=== PATIENT | male | born 1965 | race Caucasian/White ===

== ENCOUNTER 2016-05-23 15:40 | Emergency (ER) | payer OTHER ==
[~2016-05-23] VITALS: Ht 170.2 cm; Wt 63.6 kg
[~2016-05-23 15:40] MED LIST: LACT10SO PO; LEVA750T PO; PANT40TA3 PO; PRIL10CA PO; SPIR25TA PO; XIFA550T4 PO
[2016-05-23 15:45] VITALS: PULSE 69; RESP 18; TEMP 99.1
[2016-05-23 15:50] VITALS: BP 107/68; PULSE 105; RESP 18; O2SAT 100
--- NOTE | 2016-05-23 16:14 | PD ---
HPI Chief Complaint: Edema Time Seen by Provider: 15:54 Travel History International Travel<30 days: No Contact w/Intl Traveler<30days: No Traveled to known affect area: No History of Present Illness HPI 50-year-old male complains of increased abdominal swelling and lower extremity swelling. Patient has history of hepatic encephalopathy, hyperammonia anemia, GERD, anxiety, depression, alcohol abuse and hepatitis C. Patient states that he has increased abdominal swelling and low semi-swelling for the past few months, worse the past 3 weeks. Patient states that he had paracentesis done 3 weeks ago. Patient states that for liter fluid was removed at that time. Patient states that he ate change in physician and does not see the same physician anymore. Patient denies any headache. Patient denies any chest pain or shortness of breath. Patient states that he has abdominal discomfort. Patient denies any dysuria or frequency. Patient denies any fever chills. PFSH Past Medical History Asthma: No Blood Disorders: No Anxiety: Yes Depression: Yes Heart Rhythm Problems: No Cancer: No Cardiovascular Problems: No High Cholesterol: No Chemotherapy: No Chest Pain: No Congestive Heart Failure: No Cirrhosis: Yes COPD: No Diabetes: No Diminished Hearing: No Endocrine: No Gastrointestinal Disorders: Yes (Reflux) GERD: Yes Genitourinary: No Hypertension: Yes Implanted Vascular Access Dvce: No Musculoskeletal: No Neurologic: No Psychiatric: Yes Reproductive: No Respiratory: Yes (Pleurisy) Radiation Therapy: No Sleep Apnea: No Thyroid Disease: No Past Surgical History Other Surgery: No (pt states no) Social History Alcohol Use: Yes (but quit) Tobacco Use: Yes Substance Use: No Allergies-Medications (Allergen,Severity, Reaction): Coded Allergies: No Known Allergies (Verified , 02/15/16) Reported Meds & Prescriptions Reported Meds & Active Scripts Active Levaquin (Levofloxacin) 750 Mg Tab 750 Mg PO DAILY 7 Days Spironolactone 25 Mg Tab 25 Mg PO DAILY Xifaxan (Rifaximin) 550 Mg Tab 550 Mg PO BID 30 Days Pantoprazole (Pantoprazole Sodium) 40 Mg Tab 40 Mg PO DAILY 30 Days Lactulose Liq (Lactulose) 10 Gm/15 Ml Soln 30 Ml PO QID 30 Days Review of Systems General / Constitutional: No: Fever Eyes: No: Visual changes HENT: No: Headaches Cardiovascular: No: Chest Pain or Discomfort Respiratory: No: Shortness of Breath Gastrointestinal: No: Abdominal Pain Genitourinary: No: Dysuria Musculoskeletal: No: Pain Skin: No Rash Neurologic: No: Weakness Psychiatric: No: Depression Endocrine: No: Polydipsia Hematologic/Lymphatic: No: Easy Bruising Physical Exam Narrative GENERAL: Well-nourished, well-developed patient. SKIN: Warm and dry. HEAD: Normocephalic. EYES: No scleral icterus. No injection or drainage. NECK: Supple, trachea midline. No JVD or lymphadenopathy. CARDIOVASCULAR: Regular rate and rhythm without murmurs, gallops, or rubs. RESPIRATORY: Breath sounds equal bilaterally. No accessory muscle use. GASTROINTESTINAL: Abdomen distended. Active bowel sounds. Mild diffuse tenderness over the abdomen. MUSCULOSKELETAL: +2 pitting edema lower extremity. BACK: Nontender without obvious deformity. No CVA tenderness. Neurologic exam normal. Data Data Last Documented VS Vital Signs Date Time Temp Pulse Resp B/P Pulse Ox O2 Delivery O2 Flow Rate FiO2 05/23/16 17:21 84 24 112/68 94 Room Air 05/23/16 15:45 99.1 Orders Complete Blood Count With Diff (05/23/16 16:05) Comprehensive Metabolic Panel (05/23/16 16:05) B-Type Natriuretic Peptide (05/23/16 16:05) Prothrombin Time / Inr (Pt) (05/23/16 16:05) Act Partial Throm Time (Ptt) (05/23/16 16:05) Lipase (05/23/16 16:05) Urinalysis - C+S If Indicated (05/23/16 16:05) Ct Abd/Pel W/O Iv Contrast (05/23/16 16:05) Iv Access Insert/Monitor (05/23/16 16:05) Ecg Monitoring (05/23/16 16:05) Oximetry (05/23/16 16:05) Ammonia (05/23/16 16:10) Labs Laboratory Tests Test 05/23/16 16:22 White Blood Count 5.9 TH/MM3 Red Blood Count 3.29 MIL/MM3 Hemoglobin 8.2 GM/DL Hematocrit 25.3 % Mean Corpuscular Volume 77.0 FL Mean Corpuscular Hemoglobin 25.0 PG Mean Corpuscular Hemoglobin 32.4 % Concent Red Cell Distribution Width 19.1 % Platelet Count 149 TH/MM3 Mean Platelet Volume 9.8 FL Neutrophils (%) (Auto) 53.6 % Lymphocytes (%) (Auto) 26.5 % Monocytes (%) (Auto) 16.8 % Eosinophils (%) (Auto) 2.0 % Basophils (%) (Auto) 1.1 % Neutrophils # (Auto) 3.1 TH/MM3 Lymphocytes # (Auto) 1.5 TH/MM3 Monocytes # (Auto) 1.0 TH/MM3 Eosinophils # (Auto) 0.1 TH/MM3 Basophils # (Auto) 0.1 TH/MM3 CBC Comment DIFF FINAL Differential Comment Prothrombin Time 17.9 SEC Prothromb Time International 1.6 RATIO Ratio Activated Partial 31.3 SEC Thromboplast Time Sodium Level 139 MEQ/L Potassium Level 3.9 MEQ/L Chloride Level 104 MEQ/L Carbon Dioxide Level 25.1 MEQ/L Anion Gap 10 MEQ/L Blood Urea Nitrogen 16 MG/DL Creatinine 1.12 MG/DL Estimat Glomerular Filtration 69 ML/MIN Rate Random Glucose 92 MG/DL Calcium Level 8.5 MG/DL Total Bilirubin 1.2 MG/DL Aspartate Amino Transf 37 U/L (AST/SGOT) Alanine Aminotransferase 20 U/L (ALT/SGPT) Alkaline Phosphatase 61 U/L Ammonia 43 MCMOL/L B-Type Natriuretic Peptide 180 PG/ML Total Protein 7.0 GM/DL Albumin 2.6 GM/DL Lipase 145 U/L MDM Medical Decision Making Medical Screen Exam Complete: Yes Emergency Medical Condition: Yes Medical Record Reviewed: Yes Interpretation(s) [address] scan abdomen pelvis social advanced cirrhosis. Large ascites. Varicosities. CBC WBC 5.9. Hemoglobin 8.2 hematocrit 25.3. MCV 77. Platelet 149. Ammonia 43. BNP 180. INR 1.6. Differential Diagnosis Differential diagnosis including abdominal ascites, electrolyte imbalance, dehydration, dependent edema, DVT, CHF. Narrative Course 50-year-old male with increased abdominal swelling and lower extremity edema. History of hepatic encephalopathy, alcohol abuse and hepatitis C. History of recurrent ascites. Diagnosis Primary Impression: Ascites of liver Additional Impression: Dependent edema Patient Instructions: General Instructions Additional Instructions: Keep legs elevated. Follow-up with outpatient radiology department for paracentesis in 2 days. Return if increased abdominal pain, shortness of breath , fever, persistent vomiting. Continue with spironolactone and lactulose as directed. Med/Other Pt SpecificInfo: Prescription(s) given Disposition: 01 DISCHARGE HOME Condition: Stable Angelo Smith MD May 23, 2016 16:14
[2016-05-23 16:40] VITALS: O2SAT 94
[2016-05-23 16:42] LABS: AUTOMATED NEUTROPHIL # 3.1 TH/MM3 (1.8-7.7); BASOPHIL # 0.1 TH/MM3 (0-0.2); BASOPHIL % 1.1 % (0.0-2.0); EOSINOPHIL # 0.1 TH/MM3 (0-0.4); HEMATOCRIT 25.3 % (39.0-51.0); HEMO FLAGS DIFF FINAL; LYMPH % 26.5 % (9.0-44.0); LYMPHOCYTE # 1.5 TH/MM3 (1.0-4.8); MEAN CORPUSCULAR HGB CONC 32.4 % (32.0-36.0); MONO % 16.8 % (0.0-8.0); NEUT % 53.6 % (16.0-70.0); PLATELET COUNT 149 TH/MM3 (150-450); RED BLOOD COUNT 3.29 MIL/MM3 (4.50-5.90); RED CELL DISTRIBUTION WIDTH 19.1 % (11.6-17.2); WHITE BLOOD COUNT 5.9 TH/MM3 (4.0-11.0)
[2016-05-23 16:45] LABS: APTT (PATIENT) 31.3 SEC (24.3-30.1); INTERNATIONAL NORMALIZED RATIO 1.6 RATIO; PROTHROMBIN TIME - PATIENT 17.9 SEC (9.8-11.6)
--- NOTE | 2016-05-23 16:55 | RADRPT ---
EXAM DATE/TIME: 05/23/2016 16:37 [facility] COMPARISON: CT ABDOMEN & PELVIS W/O CONTRAST, February 15, 2016, 19:26. INDICATIONS : Ascites; abdomen distention. ORAL CONTRAST: No oral contrast ingested. RADIATION DOSE: 13.45 CTDIvol (mGy) MEDICAL HISTORY : Cirrhosis. Reflux. SURGICAL HISTORY : None. ENCOUNTER: Initial ACUITY: 1 day PAIN SCALE: 7/10 LOCATION: Bilateral abdomen. TECHNIQUE: Volumetric scanning of the abdomen and pelvis was performed. Using automated exposure control and ad justment of the mA and/or kV according to patient size, radiation dose was kept as low as reasonably achievable to obtain optimal diagnostic quality images. FINDINGS: Minimal bibasilar parenchymal changes are noted. The heart is enlarged without pericardial effusion. There is dense ascites with small shrunken liver. The spleen is of normal size The pancreas adrenals and kidneys are unremarkable. Pelvic contents were normal with exception of significant ascites. CONCLUSION: Small shrunken liver consistent with advanced cirrhosis Spleen is of normal size Tense ascites is evident Varicosities are suspected however I cannot visualize these on the noncontrast exam. Large volume paracentesis, 10 L was performed on 05/07/2016. Tyson Farias MD FACR on May 23, 2016 at 16:52 Board Certified Radiologist. This report was verified electronically.
[2016-05-23 16:56] LABS: ALT (GPT) 20 U/L (12-78); ANION GAP 10 MEQ/L (5-15); AST (GOT) 37 U/L (15-37); BICARBONATE 25.1 MEQ/L (21.0-32.0); BLOOD UREA NITROGEN 16 MG/DL (7-18); CHLORIDE 104 MEQ/L (98-107); GLOMERULAR FILTRATION RATE 69 ML/MIN (>89); POTASSIUM 3.9 MEQ/L (3.5-5.1); SODIUM (NA) 139 MEQ/L (136-145)
[2016-05-23 16:58] LABS: ALKALINE PHOSPHATASE 61 U/L (45-117); TOTAL BILIRUBIN ADULT 1.2 MG/DL (0.2-1.0)
[2016-05-23 17:21] VITALS: BP 112/68; PULSE 84; RESP 24; O2SAT 94
== END 2016-05-23 18:46 | disposition home or self-care (01) ==
LOC: NEPA 15:40
DX: R18.8 Other ascites (principal); K74.60 Unspecified cirrhosis of liver; B19.20 Unspecified viral hepatitis C without hepatic coma; I10 Essential (primary) hypertension; Z72.0 Tobacco use
CPT/HCPCS: 74176; 80053; 82140; 83690; 83880; 85025; 85610; 85730

== ENCOUNTER 2016-05-26 09:35 | Emergency (ER) | payer OTHER ==
[~2016-05-26] VITALS: Ht 170.2 cm; Wt 78.0 kg
[~2016-05-26 09:35] MED LIST changes: -PRIL10CA PO
[2016-05-26 09:46] VITALS: BP 102/61; PULSE 84; RESP 18; TEMP 98.2; O2SAT 94
[2016-05-26 09:50] VITALS: BP 102/61; PULSE 84; RESP 16; O2SAT 99
--- NOTE | 2016-05-26 09:50 | PD ---
HPI Chief Complaint: Pain: Acute or Chronic Time Seen by Provider: 09:49 Travel History International Travel<30 days: No Contact w/Intl Traveler<30days: No Traveled to known affect area: No History of Present Illness HPI 50-year-old male came to the emergency room with history of bilateral lower extremity pain. Patient has history of cirrhosis, end-stage liver disease, hepatitis secondary to years of alcoholism and drug abuse. He had a paracentesis done 5 weeks ago. Right now he says he is not here for his abdomen or breathing but it's mainly for his legs. Patient looks disheveled and in some distress. Vital signs however are within normal limits. He says he lives alone but he has his mother who will take care of him. He is having trouble getting out of the bed or chair and some trouble walking. No history of fever or chills. He does not have a primary care doctor or a GI specialist. PFSH Past Medical History Narrative Medical List of his past medical history as reviewed from the nursing note. Asthma: No Blood Disorders: No Anxiety: Yes Depression: Yes Heart Rhythm Problems: No Cancer: No Cardiovascular Problems: No High Cholesterol: No Chemotherapy: No Chest Pain: No Congestive Heart Failure: No Cirrhosis: Yes COPD: No Diabetes: No Diminished Hearing: No Endocrine: No Gastrointestinal Disorders: Yes (Reflux) GERD: Yes Genitourinary: No Hypertension: Yes Implanted Vascular Access Dvce: No Musculoskeletal: No Neurologic: No Psychiatric: Yes Reproductive: No Respiratory: Yes (Pleurisy) Radiation Therapy: No Sleep Apnea: No Thyroid Disease: No Past Surgical History Other Surgery: No (pt states no) Social History Alcohol Use: Yes (but quit) Tobacco Use: Yes Substance Use: No Allergies-Medications (Allergen,Severity, Reaction): Coded Allergies: Morphine (Verified Allergy, Unknown, 05/26/16) Comments List of his allergies reviewed from the nursing note. Reported Meds & Prescriptions Reported Meds & Active Scripts Active Reported Prilosec (Omeprazole Magnesium) 10 Mg Pow 10 Mg PO HS Narrative Medication List of his home medications reviewed from the nursing note. Review of Systems Except as stated in HPI: all other systems reviewed are Neg Physical Exam Narrative GENERAL: Awake, alert, moderate distress SKIN: Warm and dry. Pale, spider hemangioma, caput medusae HEAD: Atraumatic. Normocephalic. Pallor EYES: Pupils equal and round. No scleral icterus. No injection or drainage. ENT: No nasal bleeding or discharge. Mucous membranes pink and moist. NECK: Trachea midline. No JVD. CARDIOVASCULAR: Regular rate and rhythm. No murmur appreciated. RESPIRATORY: No accessory muscle use. Clear to auscultation. Breath sounds equal bilaterally. GASTROINTESTINAL: Abdomen soft, non-tender, abdomen is distended from ascites. Hepatic and splenic margins not palpable. MUSCULOSKELETAL: No obvious deformities. No clubbing. No cyanosis. No edema. NEUROLOGICAL: Awake and alert. No obvious cranial nerve deficits. Motor grossly within normal limits. Normal speech. PSYCHIATRIC: Appropriate mood and affect; insight and judgment normal. Data Data Last Documented VS Vital Signs Date Time Temp Pulse Resp B/P Pulse Ox O2 Delivery O2 Flow Rate FiO2 05/26/16 10:45 82 16 101/73 100 Nasal Cannula 2 05/26/16 09:46 98.2 Orders Complete Blood Count With Diff (05/26/16 09:55) Comprehensive Metabolic Panel (05/26/16 09:55) Prothrombin Time / Inr (Pt) (05/26/16 09:55) Act Partial Throm Time (Ptt) (05/26/16 09:55) Iv Access Insert/Monitor (05/26/16 09:55) Ecg Monitoring (05/26/16 09:55) Oximetry (05/26/16 09:55) Sodium Chloride 0.9% Flush (Ns Flush) (05/26/16 10:00) Chest, Single Ap (05/26/16 09:55) Hydromorphone Pf Inj (Dilaudid Pf Inj) (05/26/16 10:00) ^ Other Nursing Orders (05/26/16 11:20) Mandatory Outpatient Referral (05/26/16 11:20) Labs Laboratory Tests Test 05/26/16 10:10 White Blood Count 3.5 TH/MM3 Red Blood Count 3.34 MIL/MM3 Hemoglobin 8.5 GM/DL Hematocrit 25.8 % Mean Corpuscular Volume 77.4 FL Mean Corpuscular Hemoglobin 25.3 PG Mean Corpuscular Hemoglobin 32.7 % Concent Red Cell Distribution Width 19.4 % Platelet Count 129 TH/MM3 Mean Platelet Volume 10.0 FL Neutrophils (%) (Auto) 49.7 % Lymphocytes (%) (Auto) 32.8 % Monocytes (%) (Auto) 14.7 % Eosinophils (%) (Auto) 1.8 % Basophils (%) (Auto) 1.0 % Neutrophils # (Auto) 1.7 TH/MM3 Lymphocytes # (Auto) 1.1 TH/MM3 Monocytes # (Auto) 0.5 TH/MM3 Eosinophils # (Auto) 0.1 TH/MM3 Basophils # (Auto) 0.0 TH/MM3 CBC Comment DIFF FINAL Differential Comment Prothrombin Time 17.2 SEC Prothromb Time International 1.5 RATIO Ratio Activated Partial 31.5 SEC Thromboplast Time Sodium Level 136 MEQ/L Potassium Level 4.7 MEQ/L Chloride Level 105 MEQ/L Carbon Dioxide Level 22.9 MEQ/L Anion Gap 8 MEQ/L Blood Urea Nitrogen 14 MG/DL Creatinine 1.03 MG/DL Estimat Glomerular Filtration 76 ML/MIN Rate Random Glucose 86 MG/DL Calcium Level 8.4 MG/DL Total Bilirubin 2.0 MG/DL Aspartate Amino Transf 65 U/L (AST/SGOT) Alanine Aminotransferase 21 U/L (ALT/SGPT) Alkaline Phosphatase 59 U/L Total Protein 7.1 GM/DL Albumin 2.6 GM/DL MDM Medical Decision Making Medical Screen Exam Complete: Yes Emergency Medical Condition: Yes Medical Record Reviewed: Yes Differential Diagnosis Cirrhosis, anasarca, venous congestion Narrative Course 11:18 AM blood test results of back and they are as good as they can be given his portal hypertension and cirrhosis. The patient does not qualify for any home health due to his lack of insurance or source of income as per ED case management. I don't see any reason to admit him to the hospital today. I will give him a walker to go home with for help with ambulation. Patient said that his mother will help him. I will give him the name of the number of the GI specialist call and see if he can get him up appointment. I'll also give a mandatory follow-up. Procedures EKG Prior to Arrival: No Diagnosis Primary Impression: Cirrhosis Qualified Code: K70.31 - Alcoholic cirrhosis of liver with ascites Additional Impressions: Ascites Qualified Code: K70.31 - Ascites due to alcoholic cirrhosis Anasarca Referrals: Hanane Nelson MD 2 days Additional Instructions: Please call the GI specialist was name and number been given to you. Return to the ER if the condition worsens or any other new concerns. Med/Other Pt SpecificInfo: No Change to Meds Disposition: 01 DISCHARGE HOME Condition: Patsy Terry MD May 26, 2016 09:50 Disposition: 01 DISCHARGE HOME Condition: Patsy Terry MD May 26, 2016 09:50
[2016-05-26] MEDS ORDERED: PRIL10PO PO (09:57)
[2016-05-26] MEDS ORDERED: HYDROmorphone HCL PF 1 MG/ML VIAL IVS ONE (10:00)
[2016-05-26] MEDS ORDERED: SODIUM CHLORIDE 0.9% FLUSH 5 ML FLUSH IVF PRN (10:00)
[2016-05-26 10:21] LABS: AUTOMATED NEUTROPHIL # 1.7 TH/MM3 (1.8-7.7); EOSINOPHIL # 0.1 TH/MM3 (0-0.4); EOSINOPHIL % 1.8 % (0.0-4.0); HEMATOCRIT 25.8 % (39.0-51.0); HEMO FLAGS DIFF FINAL; LYMPH % 32.8 % (9.0-44.0); LYMPHOCYTE # 1.1 TH/MM3 (1.0-4.8); MEAN CELL VOLUME 77.4 FL (80.0-100.0); MEAN CORPUSCULAR HEMOGLOBIN 25.3 PG (27.0-34.0); MEAN CORPUSCULAR HGB CONC 32.7 % (32.0-36.0); MONO % 14.7 % (0.0-8.0); NEUT % 49.7 % (16.0-70.0); PLATELET COUNT 129 TH/MM3 (150-450); RED BLOOD COUNT 3.34 MIL/MM3 (4.50-5.90); RED CELL DISTRIBUTION WIDTH 19.4 % (11.6-17.2); WHITE BLOOD COUNT 3.5 TH/MM3 (4.0-11.0)
--- NOTE | 2016-05-26 10:21 | RADRPT ---
EXAM DATE/TIME: 05/26/2016 09:51 [facility] COMPARISON: CHEST SINGLE AP, May 07, 2016, 1:32. INDICATIONS : Chest pain, swollen, painful lower extremites. Evaluate free air MEDICAL HISTORY : Gastroesophageal reflux disease. Hepatitis C. pleurisy, depression SURGICAL HISTORY : None. ENCOUNTER: Initial ACUITY: 4 - 6 days PAIN SCORE: 6/10 LOCATION: Bilateral chest FINDINGS: A single view of the chest demonstrates the lungs to be hypoinflated with minimal bibasilar atelectat ic changes. There is marked improvement in the appearance of the left lung where there was a hazy inf iltrate identified in the left base. This has basically resolved. There are no effusions. Accounting for low lung volumes, heart size is normal. Slight but stable elevation of the right hemidiaphragm. O sseous structures are intact.. CONCLUSION: 1. While there is some minimal bibasilar atelectatic changes, left greater than right, there is marke d interval improvement in the appearance of the left base there was previously a hazy, confluent infi ltrate. This has essentially resolved. 2. Hypoinflation with minimal but stable elevation of the right hemidiaphragm. 3. Heart size is normal. Raul Vásquez MD on May 26, 2016 at 10:15 Board Certified Radiologist. This report was verified electronically.
[2016-05-26 10:31] LABS: APTT (PATIENT) 31.5 SEC (24.3-30.1); INTERNATIONAL NORMALIZED RATIO 1.5 RATIO; PROTHROMBIN TIME - PATIENT 17.2 SEC (9.8-11.6)
[2016-05-26 10:45] VITALS: BP 101/73; PULSE 82; RESP 16; O2SAT 100
[2016-05-26 10:50] LABS: ALKALINE PHOSPHATASE 59 U/L (45-117); ALT (GPT) 21 U/L (12-78); ANION GAP 8 MEQ/L (5-15); BICARBONATE 22.9 MEQ/L (21.0-32.0); BLOOD UREA NITROGEN 14 MG/DL (7-18); CHLORIDE 105 MEQ/L (98-107); GLOMERULAR FILTRATION RATE 76 ML/MIN (>89); SODIUM (NA) 136 MEQ/L (136-145)
[2016-05-26 10:51] LABS: AST (GOT) 65 U/L (15-37); POTASSIUM 4.7 MEQ/L (3.5-5.1)
== END 2016-05-26 11:52 | disposition home or self-care (01) ==
LOC: NEPA 09:35
DX: K70.31 Alcoholic cirrhosis of liver with ascites (principal); R60.1 Generalized edema; R07.9 Chest pain, unspecified; B19.20 Unspecified viral hepatitis C without hepatic coma; M79.662 Pain in left lower leg; K21.9 Gastro-esophageal reflux disease without esophagitis
CPT/HCPCS: 71010; 80053; 85025; 85610; 85730; 96374; 99284; J1170

== ENCOUNTER 2016-06-02 16:42 | Inpatient (IN) | payer OTHER ==
[~2016-06-02] VITALS: Ht 167.6 cm; Wt 72.3 kg
[~2016-06-02 16:42] MED LIST changes: -LACT10SO PO; -LEVA750T PO; -PANT40TA3 PO; +PRIL10PO PO; -SPIR25TA PO; -XIFA550T4 PO
[2016-06-02] MEDS ORDERED: SODIUM CHLORIDE 0.9% FLUSH 5 ML FLUSH IVF PRN (17:30)
[2016-06-02 17:43] VITALS: BP 125/64; PULSE 95; RESP 16; TEMP 98.9; O2SAT 100
[2016-06-02 18:02] LABS: AUTOMATED NEUTROPHIL # 3.2 TH/MM3 (1.8-7.7); BASOPHIL % 0.6 % (0.0-2.0); EOSINOPHIL % 0.3 % (0.0-4.0); HEMATOCRIT 25.2 % (39.0-51.0); LYMPH % 20.1 % (9.0-44.0); MEAN CELL VOLUME 78.3 FL (80.0-100.0); MEAN CORPUSCULAR HEMOGLOBIN 24.6 PG (27.0-34.0); MEAN CORPUSCULAR HGB CONC 31.5 % (32.0-36.0); MONO % 15.1 % (0.0-8.0); NEUT % 63.9 % (16.0-70.0); PLATELET COUNT 122 TH/MM3 (150-450); RED BLOOD COUNT 3.21 MIL/MM3 (4.50-5.90); RED CELL DISTRIBUTION WIDTH 20.7 % (11.6-17.2); WHITE BLOOD COUNT 4.9 TH/MM3 (4.0-11.0)
[2016-06-02 18:04] LABS: HEMO FLAGS AUTO DIFF
[2016-06-02 18:13] LABS: APTT (PATIENT) 29.1 SEC (24.3-30.1); INTERNATIONAL NORMALIZED RATIO 1.6 RATIO; PROTHROMBIN TIME - PATIENT 18.3 SEC (9.8-11.6)
[2016-06-02 18:23] LABS: ALT (GPT) 20 U/L (12-78); ANION GAP 12 MEQ/L (5-15); AST (GOT) 36 U/L (15-37); BICARBONATE 21.9 MEQ/L (21.0-32.0); BLOOD UREA NITROGEN 21 MG/DL (7-18); CHLORIDE 106 MEQ/L (98-107); GLOMERULAR FILTRATION RATE 69 ML/MIN (>89); POTASSIUM 3.5 MEQ/L (3.5-5.1); SODIUM (NA) 140 MEQ/L (136-145)
[2016-06-02 18:24] LABS: OVALOCYTES 1+ (NORMAL); TARGET CELLS 1+ (NORMAL)
[2016-06-02 18:25] LABS: ALKALINE PHOSPHATASE 61 U/L (45-117); CREATINE KINASE 109 U/L (39-308); PLATELET ESTIMATE SMEAR LOW (NORMAL); PLATELET MORPHOLOGY NORMAL (NORMAL); SCAN/DIFF AUTO DIFF CONFIRMED; TOTAL BILIRUBIN ADULT 2.4 MG/DL (0.2-1.0)
--- NOTE | 2016-06-02 18:47 | PD ---
HPI Chief Complaint: Fall Time Seen by Provider: 18:00 Travel History International Travel<30 days: No Contact w/Intl Traveler<30days: No Traveled to known affect area: No History of Present Illness HPI Patient is a 50-year-old male brought in by EMS for evaluation of altered mental status, fall. Per EMS report patient is acting normally, they state the family was not concerned about the way he was acting. Patient had a fall outside of his home and the neighbor's yard. Patient is complaining of neck pain and has a contusion to the back of his head. He denies any other complaints at this time. PFSH Past Medical History Asthma: No Blood Disorders: No Anxiety: Yes Depression: Yes Heart Rhythm Problems: No Cancer: No Cardiovascular Problems: No High Cholesterol: No Chemotherapy: No Chest Pain: No Congestive Heart Failure: No Cirrhosis: Yes COPD: No Diabetes: No Diminished Hearing: No Endocrine: No Gastrointestinal Disorders: Yes (Reflux) GERD: Yes Genitourinary: No Hepatitis: Yes (HEP C ) Hypertension: Yes Implanted Vascular Access Dvce: No Musculoskeletal: No Neurologic: No Psychiatric: Yes Reproductive: No Respiratory: Yes (Pleurisy) Radiation Therapy: No Sleep Apnea: No Thyroid Disease: No Past Surgical History Other Surgery: No (pt states no) Social History Alcohol Use: Yes (but quit) Tobacco Use: Yes (1 PPD) Substance Use: No Allergies-Medications (Allergen,Severity, Reaction): Coded Allergies: Morphine (Verified Allergy, Unknown, 06/02/16) Reported Meds & Prescriptions Reported Meds & Active Scripts Active Reported Prilosec (Omeprazole Magnesium) 10 Mg Pow 10 Mg PO HS Review of Systems ROS Limitations: Altered Mental Status, Poor Historian Except as stated in HPI: all other systems reviewed are Neg HENT: Positive: Neck Pain Physical Exam Narrative GENERAL: Chronically ill, drowsy male. Resting comfortably in no acute distress. Cachectic SKIN: Warm and dry. 7 centimeter contusion to the right posterior/lateral scalp HEAD: Atraumatic. Normocephalic. EYES: Pupils equal and round. No scleral icterus. No injection or drainage. ENT: No nasal bleeding or discharge. Mucous membranes pink and moist. NECK: Trachea midline. No JVD. CARDIOVASCULAR: Regular rate and rhythm. No murmur appreciated. RESPIRATORY: No accessory muscle use. In addition basis GASTROINTESTINAL: Abdomen distended, firm, non-tender. Hepatic and splenic margins not palpable. The bowel sounds MUSCULOSKELETAL: No obvious deformities. No clubbing. No cyanosis. No edema. NEUROLOGICAL: Drowsy. No obvious cranial nerve deficits. Motor grossly within normal limits. Slurred speech Data Data Last Documented VS Vital Signs Date Time Temp Pulse Resp B/P Pulse Ox O2 Delivery O2 Flow Rate FiO2 06/02/16 19:43 98 16 96 Nasal Cannula 2 06/02/16 19:35 104/67 06/02/16 17:43 98.9 Orders Electrocardiogram (06/02/16 17:26) Alcohol (Ethanol) (06/02/16 17:26) Ammonia (06/02/16 17:26) Complete Blood Count With Diff (06/02/16 17:26) Comprehensive Metabolic Panel (06/02/16 17:26) Creatine Kinase (Cpk) (06/02/16 17:26) Prothrombin Time / Inr (Pt) (06/02/16 17:26) Act Partial Throm Time (Ptt) (06/02/16 17:26) Lactic Acid Sepsis Protocol (06/02/16 17:26) Ct Brain W/O Iv Contrast(Rout) (06/02/16 17:26) Blood Glucose (06/02/16 17:26) Ecg Monitoring (06/02/16 17:26) Iv Access Insert/Monitor (06/02/16 17:26) Cath For Specimen (06/02/16 17:26) Oximetry (06/02/16 17:26) Sodium Chloride 0.9% Flush (Ns Flush) (06/02/16 17:30) Ct Cerv Spine W/O Contrast (06/02/16 ) Type And Screen (06/02/16 19:38) Sodium Chlor 0.9% 1000 Ml Inj (Ns 1000 M (06/02/16 19:45) Head Of Bed (06/02/16 19:41) Neuro Checks . ORDERED (06/02/16 19:48) Urinary Catheter Insert/Apply (06/02/16 20:08) Admit To Inpatient (06/02/16 ) Vital Signs (Adult) Q4H (06/02/16 20:11) Neuro Checks Q4H (06/02/16 20:11) Activity Oob With Assistance (06/02/16 20:11) International Sales Manager / Telemetry .CONTINUOUS (06/02/16 20:11) Diet Npo (06/03/16 Breakfast) Sodium Chloride 0.9% Flush (Ns Flush) (06/02/16 20:15) Sodium Chloride 0.9% Flush (Ns Flush) (06/02/16 21:00) Basic Metabolic Panel (Bmp) (06/03/16 06:00) Complete Blood Count With Diff (06/03/16 06:00) Prothrombin Time / Inr (Pt) (06/03/16 06:00) Pt Request For Service (06/02/16 20:11) Case Management Consult (06/02/16 20:11) Scd Bilateral/Knee High DONTA.BID (06/02/16 20:11) Naloxone Inj (Narcan Inj) (06/02/16 20:15) Inpatient Certification (06/02/16 ) Admit Order (Ed Use Only) (06/02/16 20:11) Phytonadione Inj (Vitamin K Inj) (06/02/16 20:15) Phytonadione (Mephyton) (06/03/16 09:00) Hgb & Hct (06/02/16 20:14) Hgb & Hct (06/03/16 00:14) Hgb & Hct (06/03/16 04:14) Hgb & Hct (06/03/16 08:14) Labs Laboratory Tests Test 06/02/16 17:30 White Blood Count 4.9 TH/MM3 Red Blood Count 3.21 MIL/MM3 Hemoglobin 7.9 GM/DL Hematocrit 25.2 % Mean Corpuscular Volume 78.3 FL Mean Corpuscular Hemoglobin 24.6 PG Mean Corpuscular Hemoglobin 31.5 % Concent Red Cell Distribution Width 20.7 % Platelet Count 122 TH/MM3 Mean Platelet Volume 10.0 FL Neutrophils (%) (Auto) 63.9 % Lymphocytes (%) (Auto) 20.1 % Monocytes (%) (Auto) 15.1 % Eosinophils (%) (Auto) 0.3 % Basophils (%) (Auto) 0.6 % Neutrophils # (Auto) 3.2 TH/MM3 Lymphocytes # (Auto) 1.0 TH/MM3 Monocytes # (Auto) 0.7 TH/MM3 Eosinophils # (Auto) 0.0 TH/MM3 Basophils # (Auto) 0.0 TH/MM3 CBC Comment AUTO DIFF Differential Comment AUTO DIFF CONFIRMED Platelet Estimate LOW Platelet Morphology Comment NORMAL Target Cells 1+ Ovalocytes 1+ Prothrombin Time 18.3 SEC Prothromb Time International 1.6 RATIO Ratio Activated Partial 29.1 SEC Thromboplast Time Sodium Level 140 MEQ/L Potassium Level 3.5 MEQ/L Chloride Level 106 MEQ/L Carbon Dioxide Level 21.9 MEQ/L Anion Gap 12 MEQ/L Blood Urea Nitrogen 21 MG/DL Creatinine 1.13 MG/DL Estimat Glomerular Filtration 69 ML/MIN Rate Random Glucose 100 MG/DL Calcium Level 9.1 MG/DL Total Bilirubin 2.4 MG/DL Aspartate Amino Transf 36 U/L (AST/SGOT) Alanine Aminotransferase 20 U/L (ALT/SGPT) Alkaline Phosphatase 61 U/L Total Creatine Kinase 109 U/L Total Protein 7.8 GM/DL Albumin 2.9 GM/DL Ethyl Alcohol Level LESS THAN 3 MG/DL MDM Medical Decision Making Medical Screen Exam Complete: Yes Emergency Medical Condition: Yes Interpretation(s) Last Impressions Head CT 06/02/16 1726 Signed Impressions: Service Date/Time: Thursday, June 02, 2016 19:04 - CONCLUSION: 1. Questionable small intraparenchymal hematoma involving the right middle cerebellar peduncle. 2. Large right parietal soft tissue hematoma. Haider Reinoso Jr., MD Cervical Spine CT 06/02/16 0000 Signed Impressions: Service Date/Time: Thursday, June 02, 2016 19:04 - CONCLUSION: 1. No fracture or dislocation. 2. Degenerative changes. 3. Calcified atherosclerotic plaque involving the carotid arteries bilaterally. Haider Reinoso Jr., MD Vital Signs Date Time Temp Pulse Resp B/P Pulse Ox O2 Delivery O2 Flow Rate FiO2 06/02/16 17:43 98.9 95 16 125/64 100 Differential Diagnosis Contusion versus hemorrhage versus electrolyte abnormality versus intoxication versus other Narrative Course Patient is a 50-year-old male who presented to the emergency room for evaluation after a mechanical fall earlier this afternoon. Patient was found at a neighbor's home. Patient hasn't slurring his speech, EMS states this is his baseline. Patient has a history of cirrhosis, his last paracentesis was performed. Labs and imaging ordered and pending. CBC shows an H/H of 7.9/25.2, previous value was 8.5. Chemistry with a bilirubin of 2.4, BUN 21 Coag with elevated INR 1.6 Alcohol level is less than 3 CT of the head shows questionable small intraparenchymal hematoma involving the right middle cerebellar peduncle, and a right parietal soft tissue hematoma which is consistent with physical findings. CT scan of the cervical spine shows no fracture or dislocation, degenerative changes, calcified atherosclerotic plaque involving the carotid arteries bilaterally. Patient continues to follow commands. Discussed with Dr. Nayak neurosurgeon, who recommended admission and stated patient will be appropriate for the medical floor. Discussed with Dr. Juan who accepted admission, and requested patient be placed in [facility]. Neuro checks ordered, had a bed at 30 ordered. Type and screen ordered and pending. Physician Communication Physician Communication Dr. Rochelle Juan Diagnosis Primary Impression: Intracranial hemorrhage Additional Impressions: Anemia Qualified Code: D64.9 - Anemia, unspecified type Coagulopathy Cirrhosis Qualified Code: K74.60 - Cirrhosis of liver with ascites, unspecified hepatic cirrhosis type Ascites Qualified Code: R18.8 - Other ascites Altered mental status Qualified Code: R41.82 - Altered mental status, unspecified altered mental status type Admitting Information Admitting Physician Requests: Admit Condition: Stable Sabi Pelaez Marina KIMBROUGH Jun 02, 2016 18:47
--- NOTE | 2016-06-02 19:28 | RADRPT ---
EXAM DATE/TIME: 06/02/2016 19:04 [facility] COMPARISON: No previous studies available for comparison. INDICATIONS : Fall and hit back of head and neck RADIATION DOSE: 41.29 CTDIvol (mGy) MEDICAL HISTORY : Hypertension. SURGICAL HISTORY : None. ENCOUNTER: Initial ACUITY: 1 day PAIN SCALE: 3/10 LOCATION: neck posterior TECHNIQUE: Volumetric scanning of the cervical spine was performed. Multiplanar reconstructions in the sagittal, coronal and oblique axial planes were performed. Using automated exposure control and adjustment o f the mA and/or kV according to patient size, radiation dose was kept as low as reasonably achievable to obtain optimal diagnostic quality images. FINDINGS: VERTEBRAE: Normal vertebral body height. ALIGNMENT: No evidence of subluxation. Calcified plaque involving the carotid arteries bilaterally. C2-C3: The bony spinal canal is normal in size. No evidence of disc bulge or herniation. The neural forami na are bilaterally patent. C3-C4: A mild central bulge. No abutment of the cord or central canal stenosis. Bony uncovertebral hypertrop hy without significant neural foraminal narrowing. C4-C5: A mild broad-based disc bulge without central canal stenosis or abutment of the cord. Bony uncoverteb ral hypertrophy without neural foraminal narrowing. C5-C6: The bony spinal canal is normal in size. No evidence of disc bulge or herniation. The neural forami na are bilaterally patent. C6-C7: The bony spinal canal is normal in size. No evidence of disc bulge or herniation. The neural forami na are bilaterally patent. C7-T1: The bony spinal canal is normal in size. No evidence of disc bulge or herniation. The neural forami na are bilaterally patent. CONCLUSION: 1. No fracture or dislocation. 2. Degenerative changes. 3. Calcified atherosclerotic plaque involving the carotid arteries bilaterally. Haider Reinoso Jr., MD on June 02, 2016 at 19:23 Board Certified Radiologist. This report was verified electronically.
--- NOTE | 2016-06-02 19:30 | RADRPT ---
EXAM DATE/TIME: 06/02/2016 19:04 [facility] COMPARISON: CT BRAIN W/O CONTRAST, May 04, 2016, 17:58. INDICATIONS : Fall and hit back of head and neck. RADIATION DOSE: 49.75 CTDIvol (mGy) MEDICAL HISTORY : Hypertension. SURGICAL HISTORY : None. ENCOUNTER: Initial ACUITY: 1 day PAIN SCALE: 5/10 LOCATION: cranial posterior TECHNIQUE: Multiple contiguous axial images were obtained of the head. Using automated exposure control and adj ustment of the mA and/or kV according to patient size, radiation dose was kept as low as reasonably a chievable to obtain optimal diagnostic quality images. FINDINGS: Enlarged right parietal soft tissue hematoma. The calvarium is intact. A small curvilinear high atten uation focus is seen involving the right middle cerebellar peduncle. This is a new finding from the p rior study. The remaining brain parenchyma is unremarkable. Mild atrophy observed. CONCLUSION: 1. Questionable small intraparenchymal hematoma involving the right middle cerebellar peduncle. 2. Large right parietal soft tissue hematoma. Haider Reinoso Jr., MD on June 02, 2016 at 19:26 Board Certified Radiologist. This report was verified electronically.
[2016-06-02 19:35] VITALS: BP 104/67; PULSE 87; RESP 14; O2SAT 96
--- NOTE | 2016-06-02 19:47 | PD ---
Physical Exam Narrative Patient was seen and examined with my commercial assistant. Data Data Last Documented VS Vital Signs Date Time Temp Pulse Resp B/P Pulse Ox O2 Delivery O2 Flow Rate FiO2 06/02/16 19:43 98 16 96 Nasal Cannula 2 06/02/16 19:35 104/67 06/02/16 17:43 98.9 Orders Electrocardiogram (06/02/16 17:26) Alcohol (Ethanol) (06/02/16 17:26) Ammonia (06/02/16 17:26) Complete Blood Count With Diff (06/02/16 17:26) Comprehensive Metabolic Panel (06/02/16 17:26) Creatine Kinase (Cpk) (06/02/16 17:26) Prothrombin Time / Inr (Pt) (06/02/16 17:26) Act Partial Throm Time (Ptt) (06/02/16 17:26) Lactic Acid Sepsis Protocol (06/02/16 17:26) Ct Brain W/O Iv Contrast(Rout) (06/02/16 17:26) Blood Glucose (06/02/16 17:26) Ecg Monitoring (06/02/16 17:26) Iv Access Insert/Monitor (06/02/16 17:26) Cath For Specimen (06/02/16 17:26) Oximetry (06/02/16 17:26) Sodium Chloride 0.9% Flush (Ns Flush) (06/02/16 17:30) Ct Cerv Spine W/O Contrast (06/02/16 ) Type And Screen (06/02/16 19:38) Sodium Chlor 0.9% 1000 Ml Inj (Ns 1000 M (06/02/16 19:45) Head Of Bed (06/02/16 19:41) Labs Laboratory Tests Test 06/02/16 17:30 White Blood Count 4.9 TH/MM3 Red Blood Count 3.21 MIL/MM3 Hemoglobin 7.9 GM/DL Hematocrit 25.2 % Mean Corpuscular Volume 78.3 FL Mean Corpuscular Hemoglobin 24.6 PG Mean Corpuscular Hemoglobin 31.5 % Concent Red Cell Distribution Width 20.7 % Platelet Count 122 TH/MM3 Mean Platelet Volume 10.0 FL Neutrophils (%) (Auto) 63.9 % Lymphocytes (%) (Auto) 20.1 % Monocytes (%) (Auto) 15.1 % Eosinophils (%) (Auto) 0.3 % Basophils (%) (Auto) 0.6 % Neutrophils # (Auto) 3.2 TH/MM3 Lymphocytes # (Auto) 1.0 TH/MM3 Monocytes # (Auto) 0.7 TH/MM3 Eosinophils # (Auto) 0.0 TH/MM3 Basophils # (Auto) 0.0 TH/MM3 CBC Comment AUTO DIFF Differential Comment AUTO DIFF CONFIRMED Platelet Estimate LOW Platelet Morphology Comment NORMAL Target Cells 1+ Ovalocytes 1+ Prothrombin Time 18.3 SEC Prothromb Time International 1.6 RATIO Ratio Activated Partial 29.1 SEC Thromboplast Time Sodium Level 140 MEQ/L Potassium Level 3.5 MEQ/L Chloride Level 106 MEQ/L Carbon Dioxide Level 21.9 MEQ/L Anion Gap 12 MEQ/L Blood Urea Nitrogen 21 MG/DL Creatinine 1.13 MG/DL Estimat Glomerular Filtration 69 ML/MIN Rate Random Glucose 100 MG/DL Calcium Level 9.1 MG/DL Total Bilirubin 2.4 MG/DL Aspartate Amino Transf 36 U/L (AST/SGOT) Alanine Aminotransferase 20 U/L (ALT/SGPT) Alkaline Phosphatase 61 U/L Total Creatine Kinase 109 U/L Total Protein 7.8 GM/DL Albumin 2.9 GM/DL Ethyl Alcohol Level LESS THAN 3 MG/DL [facility] Supervised Visit with TAI: Yes Diagnosis Primary Impression: Intracranial hemorrhage Additional Impressions: Anemia Qualified Code: D64.9 - Anemia, unspecified type Ascites Qualified Code: R18.8 - Other ascites Coagulopathy Cirrhosis Qualified Code: K74.60 - Cirrhosis of liver with ascites, unspecified hepatic cirrhosis type Altered mental status Qualified Code: R41.82 - Altered mental status, unspecified altered mental status type Angelo Smith MD Jun 02, 2016 19:47
[2016-06-02] MEDS: SODIUM CHLOR 0.9% 1000 ML INJ 1,000 ML IV SCH (20:04)
[2016-06-02] MEDS ORDERED: SODIUM CHLORIDE 0.9% FLUSH 5 ML FLUSH FLUSH PRN (20:15)
[2016-06-02] MEDS ORDERED: NALOXONE HCL 0.4 MG/ML AMP IV PRN (20:15)
[2016-06-02] MEDS ORDERED: PHYTONADIONE 10 MG/ML VIAL SQ ONE (20:15)
[2016-06-02 20:25] VITALS: BP 108/70; PULSE 86; RESP 12; O2SAT 94
[2016-06-02] MEDS: SODIUM CHLORIDE 0.9% FLUSH 5 ML FLUSH FLUSH SCH (21:05)
[2016-06-02 21:11] VITALS: BP 112/68; PULSE 90; RESP 12; O2SAT 98
[2016-06-02 21:39] LABS: HEMATOCRIT 23.2 % (39.0-51.0)
[2016-06-02 21:40] LABS: REVIEW FLAG FINAL
[2016-06-02 22:46] VITALS: BP 128/72; PULSE 80; RESP 16; O2SAT 96
[2016-06-02 23:22] VITALS: BP 104/65; PULSE 108; RESP 14; RESP 4; TEMP 98.9; O2SAT 97
[2016-06-03] VITALS (22 sets, daily range): BP systolic 93–129; BP diastolic 60–77; PULSE 66–98; RESP 16–44; TEMP 97.4–98.1; O2SAT 98–100
[2016-06-03 00:46] LABS: BACTERIA, URINE OCC /hpf; BLOOD, URINE SMALL (NEG); COMMENT (UR) CULT NOT INDICATED; CULTURE IF INDICATED CULT NOT INDICATED; GLUCOSE,URINE NEG (NEG); HYALINE CAST, URINE 38 /lpf (RARE); KETONE, URINE NEG (NEG); MUCUS URINE MANY /lpf (OCC); NITRITE,URINE NEG (NEG); PH, URINE 5.5 (5.0-8.5)
[2016-06-03 00:47] LABS: URINE COLOR LIGHT-BROWN (YELLW/STRAW)
--- NOTE | 2016-06-03 00:48 | PD.CONS ---
HPI Service Neurosurgery Consult Requested By ED Reason for Consult Right cerebellar peduncle contusion Primary Care Physician No Primary Care Physician History of Present Illness 50 yr old with cirrhosis presents after a fall. He has known encephalopathy. He was found after a fall in the neighbor's yard. He had some neck pain but remains encephalopathic and sleepy. He is at his neurologic baseline. GCS [id number] = 11. he has abrasions on his right thigh. He has no headache, nausea or vomiting, is resting when not stimulated. Review of Systems ROS Limitations: Altered Mental Status, Poor Historian Constitutional: COMPLAINS OF: Fatigue Musculoskeletal: COMPLAINS OF: Back pain, Neck pain Hematologic/lymphatic: COMPLAINS OF: Bruising, DENIES: Lymphadenopathy Neurologic: COMPLAINS OF: Poor Balance Psychiatric: COMPLAINS OF: Confusion, Hallucinations Past Family Social History Allergies: Coded Allergies: Morphine (Verified Allergy, Unknown, 06/02/16) Past Medical History Cirrhosis GERD Reported Medications Reported Meds & Active Scripts Active Reported Prilosec (Omeprazole Magnesium) 10 Mg Pow 10 Mg PO HS Family History not known Social History Lives with his family, tob 1ppd, quit ETOH Physical Exam Vital Signs Vital Signs Date Time Temp Pulse Resp B/P Pulse Ox O2 Delivery O2 Flow Rate FiO2 06/02/16 23:22 98.9 108 14 104/65 97 Room Air 06/02/16 22:46 80 16 128/72 96 Room Air 06/02/16 21:11 90 12 112/68 98 Room Air 06/02/16 20:25 86 12 108/70 94 Room Air 06/02/16 19:43 98 16 96 Nasal Cannula 2 06/02/16 19:35 87 14 104/67 96 Room Air 06/02/16 17:43 98.9 95 16 125/64 100 Physical Exam Lying in bed with his eyes closed, oriented to [facility], does not know the date and is not able to follow commands. Large cephalohematoma in the back of the head, face symmetric, pupils 3mm reactive, no racoon eyes, no burch sign, Speech dysarthric, moves all extremities purposefully, sensation is present in all extremities, no hilton sign, no Babinski Cannot participate in cerebellar testing Abdomen distended, firm BS are present, peripheral edema, Ecchymosis right thigh, skin slightly yellow but warm. Laboratory Laboratory Tests Test 06/02/16 06/02/16 06/02/16 06/02/16 17:30 20:15 20:30 21:16 White Blood Count 4.9 Red Blood Count 3.21 Hemoglobin 7.9 7.4 Hematocrit 25.2 23.2 Mean Corpuscular Volume 78.3 Mean Corpuscular Hemoglobin 24.6 Mean Corpuscular Hemoglobin 31.5 Concent Red Cell Distribution Width 20.7 Platelet Count 122 Mean Platelet Volume 10.0 Neutrophils (%) (Auto) 63.9 Lymphocytes (%) (Auto) 20.1 Monocytes (%) (Auto) 15.1 Eosinophils (%) (Auto) 0.3 Basophils (%) (Auto) 0.6 Neutrophils # (Auto) 3.2 Lymphocytes # (Auto) 1.0 Monocytes # (Auto) 0.7 Eosinophils # (Auto) 0.0 Basophils # (Auto) 0.0 CBC Comment AUTO DIFF Differential Comment AUTO DIFF CONFIRMED Platelet Estimate LOW Platelet Morphology Comment NORMAL Target Cells 1+ Ovalocytes 1+ Prothrombin Time 18.3 Prothromb Time International 1.6 Ratio Activated Partial 29.1 Thromboplast Time Sodium Level 140 Potassium Level 3.5 Chloride Level 106 Carbon Dioxide Level 21.9 Anion Gap 12 Blood Urea Nitrogen 21 Creatinine 1.13 Estimat Glomerular Filtration 69 Rate Random Glucose 100 Calcium Level 9.1 Total Bilirubin 2.4 Aspartate Amino Transf 36 (AST/SGOT) Alanine Aminotransferase 20 (ALT/SGPT) Alkaline Phosphatase 61 Total Creatine Kinase 109 Total Protein 7.8 Albumin 2.9 Ethyl Alcohol Level LESS THAN 3 Blood Bank Comment Blood Type A POSITIVE Antibody Screen NEGATIVE Test 06/02/16 21:33 Blood Type A POSITIVE Result Diagram: 06/02/16211506/02/160 Imaging Last Impressions Head CT 06/02/166 Signed Impressions: Service Date/Time: Thursday, June 02, 2016 19:04 - CONCLUSION: 1. Questionable small intraparenchymal hematoma involving the right middle cerebellar peduncle. 2. Large right parietal soft tissue hematoma. Haider Reinoso Jr., MD Cervical Spine CT 06/02/16 0000 Signed Impressions: Service Date/Time: Thursday, June 02, 2016 19:04 - CONCLUSION: 1. No fracture or dislocation. 2. Degenerative changes. 3. Calcified atherosclerotic plaque involving the carotid arteries bilaterally. Haider Reinoso Jr., MD Assessment and Plan Diagnosis: (1) Cerebral contusion Plan: His balance may have been compromise at baseline, he is at risk for falls. Rehab evaluation for home safety ordered as well as a follow up CT in the morning. ICD Code: S06.339A (2) Encephalopathy chronic Plan: Management per medicine service, has hallucinations and some agitation chronically. ICD Code: G93.49 Problem Qualifiers (1) Cerebral contusion: Qualified Code: S06.319A - Cerebral contusion, right, with loss of consciousness of unspecified duration, initial encounter Barrett Byrd Jun 03, 2016 00:48
[2016-06-03 01:09] LABS: HEMATOCRIT 21.2 % (39.0-51.0); REVIEW FLAG FINAL
--- NOTE | 2016-06-03 01:54 | HHI.HP ---
[facility] Service [facility] Primary Care Physician No Primary Care Physician Admission Diagnosis Intracranial hemorrhage, altered mental status, anemia, coagulopathy, cirrhosis . Diagnoses: (1) Altered mental status (2) Intracranial hemorrhage (3) Anemia (4) Coagulopathy (5) Cirrhosis Chief Complaint: Fall at home Travel History International Travel<30 Days: No Contact w/Intl Traveler <30 Da: No Traveled to Known Affected Are: No History of Present Illness Mr. Valladares is a male with a past medical history of anxiety, depression, GERD, pleurisy, alcohol abuse, and hepatitis C who presented to the emergency room on 06/02/16 for evaluation of altered mental status and fall. Head CT showed questionable small intraparenchymal hematoma involving the right middle cerebellar peduncle. Large right parietal soft tissue hematoma. Cervical spine CT showed degenerative changes and bilateral calcified atherosclerotic plaque of the carotid arteries but no acute fractures or dislocations. Neurosurgery was consulted and recommended admission. The patient is seen in the emergency room. He is obtunded and reliable history is unable to be obtained from him and therefore is obtained from medical record review and emergency room physician notes. Review of Systems ROS Limitations: Altered Mental Status (patient is unable to participate, therefore review of systems is unobtainable) Past Family Social History Past Medical History Anxiety Depression Pleurisy Gastroesophageal reflux disease Alcohol abuse Hepatitis C Past Surgical History None . Reported Medications Reported Meds & Active Scripts Active Reported Prilosec (Omeprazole Magnesium) 10 Mg Pow 10 Mg PO HS Allergies: Coded Allergies: Morphine (Verified Allergy, Unknown, 06/02/16) Active Ordered Medications Current Medications IV Flush 2 ml 2 ml UNSCH PRN IVF FLUSH AFTER USING IV ACCESS; Start 06/02/16 at 17:30; Stop 06/02/16 at 20:15; Status DC Sodium Chloride (NS 1000 ml Inj) 1,000 ml @ 100 mls/hr Q10H IV Last administered on 06/03/16t 05:59; Start 06/02/16 at 19:45 IV Flush (NS Flush) 2 ml UNSCH PRN FLUSH FLUSH AFTER USING IV ACCESS; Start at 20:15 IV Flush (NS Flush) 2 ml BID FLUSH Last administered on 06/02/16 21:05; Start 06/02/16 at 21:00 Naloxone HCl (Narcan Inj) 0.4 mg UNSCH PRN IV SEE LABEL COMMENTS; Start at 20:15 Phytonadione (Vitamin K Inj) 10 mg ONCE ONCE SQ Last administered on 21:05; Start 06/02/16 at 20:15; Stop 06/02/16 at 20:17; Status DC Phytonadione 5 mg 5 mg DAILY PO ; Start 06/03/16 at 09:00 Piperacillin Sod/ Tazobactam Sod (Zosyn 4.5 Gm Premix) 100 ml @ 200 mls/hr Q6H IV Last administered on 06/03/16 02:17; Start 06/03/16 at 02:00 Pantoprazole Sodium (Protonix Inj) 40 mg Q12H IV PUSH Last administered on 06/03 04:57; Start 06/03/16 at 04:00 Family History The patient has son who from liver disease Social History Patient is with 2 children Alcohol: had his last alcoholic drink 9 months ago Tobacco: Reports he smokes one pack of cigarettes per day Physical Exam Vital Signs Vital Signs Date Time Temp Pulse Resp B/P Pulse Ox O2 Delivery O2 Flow Rate FiO2 06/03/16 01:36 76 44 106/70 98 Room Air 06/02/16 23:22 98.9 108 14 104/65 97 Room Air 06/02/16 22:46 80 16 128/72 96 Room Air 06/02/16 21:11 90 12 112/68 98 Room Air 06/02/16 20:25 86 12 108/70 94 Room Air 06/02/16 19:43 98 16 96 Nasal Cannula 2 06/02/16 19:35 87 14 104/67 96 Room Air 06/02/16 17:43 98.9 95 16 125/64 100 Physical Exam GENERAL: This is a frail and chronically ill-appearing male patient who appears older than his age, in no apparent distress. SKIN: No rashes. Warm to touch and dry. HEAD: Atraumatic. Normocephalic. EYES: No scleral icterus. No injection or drainage. ENT: Nose without bleeding, purulent drainage. NECK: Trachea midline. No JVD or lymphadenopathy. CARDIOVASCULAR: Regular rate and rhythm without murmurs, gallops, or rubs. RESPIRATORY: Clear to auscultation. Breath sounds equal bilaterally. No wheezes , rales, or rhonchi. GASTROINTESTINAL: Abdomen with ascites. Normally active bowel sounds. No guarding. MUSCULOSKELETAL: Extremities without clubbing, cyanosis, or edema. No calf tenderness. NEUROLOGICAL: Obtunded. . Laboratory Laboratory Tests Test 06/02/16 06/02/16 06/02/16 06/02/16 17:30 19:52 20:15 20:30 Prothrombin Time 18.3 Prothromb Time International 1.6 Ratio Activated Partial 29.1 Thromboplast Time Sodium Level 140 Potassium Level 3.5 Chloride Level 106 Carbon Dioxide Level 21.9 Anion Gap 12 Blood Urea Nitrogen 21 Creatinine 1.13 Estimat Glomerular Filtration 69 Rate Random Glucose 100 Calcium Level 9.1 Total Bilirubin 2.4 Aspartate Amino Transf 36 (AST/SGOT) Alanine Aminotransferase 20 (ALT/SGPT) Alkaline Phosphatase 61 Total Creatine Kinase 109 Total Protein 7.8 Albumin 2.9 Ethyl Alcohol Level LESS THAN 3 White Blood Count 4.9 Red Blood Count 3.21 Hemoglobin 7.9 Hematocrit 25.2 Mean Corpuscular Volume 78.3 Mean Corpuscular Hemoglobin 24.6 Mean Corpuscular Hemoglobin 31.5 Concent Red Cell Distribution Width 20.7 Platelet Count 122 Mean Platelet Volume 10.0 Neutrophils (%) (Auto) 63.9 Lymphocytes (%) (Auto) 20.1 Monocytes (%) (Auto) 15.1 Eosinophils (%) (Auto) 0.3 Basophils (%) (Auto) 0.6 Neutrophils # (Auto) 3.2 Lymphocytes # (Auto) 1.0 Monocytes # (Auto) 0.7 Eosinophils # (Auto) 0.0 Basophils # (Auto) 0.0 CBC Comment AUTO DIFF Differential Comment AUTO DIFF CONFIRMED Platelet Estimate LOW Platelet Morphology Comment NORMAL Target Cells 1+ Ovalocytes 1+ Urine Color LIGHT-BROWN Urine Turbidity CLOUDY Urine pH 5.5 Urine Specific [place] 1.027 Urine Protein 30 Urine Glucose (UA) NEG Urine Ketones NEG Urine Occult Blood SMALL Urine Nitrite NEG Urine Bilirubin NEG Urine Urobilinogen 4.0 Urine Leukocyte Esterase NEG Urine RBC 5 Urine Amorphous Sediment MOD Urine Bacteria OCC Urine Hyaline Casts 38 Urine Mucus MANY Microscopic Urinalysis Comment CULT NOT INDICATED Blood Bank Comment Blood Type A POSITIVE Antibody Screen NEGATIVE Test 06/02/16 06/02/16 06/02/16 06/03/16 21:16 21:33 23:55 00:52 Hemoglobin 7.4 6.9 Hematocrit 23.2 21.2 Blood Type A POSITIVE Lactic Acid Level 2.2 Ammonia 35 Result Diagram: 06/03/16 0052 06/02/16 1730 Imaging Last Impressions Chest X-Ray 06/03/16 0000 Signed Impressions: Service Date/Time: Friday, June 03, 2016 02:12 - CONCLUSION: No acute disease. No significant change has occurred. Kervin Garza MD Head CT 06/02/16 1726 Signed Impressions: Service Date/Time: Thursday, June 02, 2016 19:04 - CONCLUSION: 1. Questionable small intraparenchymal hematoma involving the right middle cerebellar peduncle. 2. Large right parietal soft tissue hematoma. Haider Reinoso Jr., MD Cervical Spine CT 06/02/16 0000 Signed Impressions: Service Date/Time: Thursday, June 02, 2016 19:04 - CONCLUSION: 1. No fracture or dislocation. 2. Degenerative changes. 3. Calcified atherosclerotic plaque involving the carotid arteries bilaterally. Haider Reinoso Jr., MD Assessment and Plan Problem List: (1) Altered mental status ICD Code: R41.82 Status: Acute (2) Intracranial hemorrhage ICD Code: I62.9 Status: Acute (3) Anemia ICD Code: D64.9 Status: Acute (4) Coagulopathy ICD Code: D68.9 Status: Acute (5) Cirrhosis ICD Code: K74.60 Status: Chronic Assessment and Plan Mr. Valladares is a male with a past medical history of anxiety, depression, GERD, pleurisy, alcohol abuse, and hepatitis C who presented to the emergency room on 06/02/16 for evaluation of altered mental status and fall. Head CT showed questionable small intraparenchymal hematoma involving the right middle cerebellar peduncle. Large right parietal soft tissue hematoma. Cervical spine CT showed degenerative changes and bilateral calcified atherosclerotic plaque of the carotid arteries but no acute fractures or dislocations. Neurosurgery was consulted and recommended admission. Plan: Neurochecks every 4 hours. Serial hemoglobin and hematocrit. Transfuse 2 units of FFP. Vitamin K 5 mg subcutaneous 1 dose. Continue vitamin K 5 mg by mouth daily. The patient's hemoglobin and hematocrit actually did drop on repeat. Therefore also transfused 2 units of PRBC. Neurosurgery has evaluated patient in ER. Thought this to be stable bleeding with altered mentation likely due to chronicity. Repeat CT brain in am. As per ER report, trauma surgeon was called for this case as well. Declined admission by trauma team. On rectal temperature, patient only has 97.8. However with large ascites, with somewhat altered mental status, I would cover for SBP. Zosyn 4.5 g IV every 6 hours. Ultrasound-guided paracenteses in a.m. Written by Jenny Carlson, acting as scribe for Dr. Juan on 06/03/16 at 01:50. All or portions of this note were transcribed by scribe [Jenny Carlson]. I, Dr. Renzo Juan personally performed the history, physical exam, and medical decision making; and confirmed the accuracy of the information in the transcribed note. Authenticated by Dr. Renzo Juan on 06/03/16 at 0150 . Discussed Condition With RN and ER physician Physician Certification 2 Midnight Certification Type: Admission for Inpatient Services Order for Inpatient Services The services are ordered in accordance with Medicare regulations or non- Medicare payer requirements, as applicable. In the case of services not specified as inpatient-only, they are appropriately provided as inpatient services in accordance with the 2-midnight benchmark. Estimated LOS (days): 3 days is the estimated time the patient will need to remain in the hospital, assuming treatment plan goals are met and no additional complications. Post-Hospital Plan: Not yet determined Problem Qualifiers (1) Altered mental status: Qualified Code: R41.82 - Altered mental status, unspecified altered mental status type (2) Anemia: Qualified Code: D64.9 - Anemia, unspecified type (3) Cirrhosis: Qualified Code: K74.60 - Cirrhosis of liver with ascites, unspecified hepatic cirrhosis type Jenny Carlson Jun 03, 2016 01:54 Renzo Juan MD Jun 03, 2016 02:41
[2016-06-03 02:12] LABS: LACTIC ACID GHOST NOT REPORTABLE
[2016-06-03] MEDS: PIPERACIL-TAZO 4.5 GM PREMIX 100 ML IV SCH ×4 (02:17→19:56)
--- NOTE | 2016-06-03 02:40 | RADRPT ---
EXAM DATE/TIME: 06/03/2016 02:12 [facility] COMPARISON: CHEST SINGLE AP, May 26, 2016, 9:51. INDICATIONS : Fever. MEDICAL HISTORY : Hypertension. SURGICAL HISTORY : None. ENCOUNTER: Initial ACUITY: 1 day PAIN SCORE: Non-responsive. LOCATION: Bilateral chest FINDINGS: A single view of the chest demonstrates the lungs to be aerated without evidence of mass, infiltrate or effusion. There is elevation the right hemidiaphragm. This is stable compared to the prior exam. The cardiomediastinal contours are unremarkable. Osseous structures are intact. No significant martínez es. CONCLUSION: No acute disease. No significant change has occurred. Kervin Garza MD on June 03, 2016 at 2:38 Board Certified Radiologist. This report was verified electronically.
[2016-06-03] MEDS: PANTOPRAZOLE SODIUM 40 MG VIAL IV PUSH SCH ×2 (04:57→16:00)
--- NOTE | 2016-06-03 05:44 | EKG ---
Date Performed: 06/02/2016 Time Performed: 18:37:39 PTAGE: 50 years EKG: BASELINE ARTIFACT PRESENT. Sinus rhythm NORMAL ECG INTERPRETATION BASED ON A DEFAULT AGE OF 40 YEARS COMPARED TO PRIOR ELECTROCARDIOGRAM, Wilfrido th EKGs have artifact although I see no definite changes. PREVIOUS TRACING : 05/07/2016 01.43 DOCTOR: Michael Chatman Interpretating Date/Time 06/03/2016 05:43:28
[2016-06-03] MEDS: SODIUM CHLOR 0.9% 1000 ML INJ 1,000 ML IV SCH (05:59)
[2016-06-03] MEDS ORDERED: HALOPERIDOL LACTATE 5 MG/ML AMP IV PUSH ONE (08:30)
--- NOTE | 2016-06-03 08:41 | RADRPT ---
EXAM DATE/TIME: 06/03/2016 08:05 [facility] COMPARISON: CT BRAIN W/O CONTRAST, June 02, 2016, 19:04. INDICATIONS : Follow up bleed. RADIATION DOSE: 38.08 CTDIvol (mGy) MEDICAL HISTORY : Hypertension. SURGICAL HISTORY : None. ENCOUNTER: Subsequent ACUITY: 1 day PAIN SCALE: Non-responsive LOCATION: Cranial TECHNIQUE: Multiple contiguous axial images were obtained of the head. Using automated exposure control and adj ustment of the mA and/or kV according to patient size, radiation dose was kept as low as reasonably a chievable to obtain optimal diagnostic quality images. FINDINGS: A small focal area of high attenuation is seen in the right cerebellar peduncle, the cerebellar hemisphere appears this is probably a hemorrhage given it an evolving appearance. The supratentorial brain is unremarkable. There is no evidence for skull fracture. CONCLUSION: Abnormal CT scan. MRI may be of benefit to confirm hemorrhage. Tyson Farias MD FACR on June 03, 2016 at 8:16 Board Certified Radiologist. This report was verified electronically.
[2016-06-03] MEDS: SODIUM CHLORIDE 0.9% FLUSH 5 ML FLUSH FLUSH SCH ×2 (08:59→19:56)
[2016-06-03] MEDS: PHYTONADIONE 5 MG TAB PO SCH (10:45)
[2016-06-03 12:29] LABS: AUTOMATED NEUTROPHIL # 4.6 TH/MM3 (1.8-7.7); BASOPHIL % 0.4 % (0.0-2.0); EOSINOPHIL % 0.5 % (0.0-4.0); HEMATOCRIT 28.9 % (39.0-51.0); HEMO FLAGS DIFF FINAL; LYMPHOCYTE # 0.9 TH/MM3 (1.0-4.8); MEAN CELL VOLUME 79.6 FL (80.0-100.0); MEAN CORPUSCULAR HEMOGLOBIN 25.9 PG (27.0-34.0); MEAN CORPUSCULAR HGB CONC 32.5 % (32.0-36.0); MONO % 11.6 % (0.0-8.0); NEUT % 72.5 % (16.0-70.0); PLATELET COUNT 114 TH/MM3 (150-450); RED BLOOD COUNT 3.63 MIL/MM3 (4.50-5.90); RED CELL DISTRIBUTION WIDTH 19.5 % (11.6-17.2); WHITE BLOOD COUNT 6.3 TH/MM3 (4.0-11.0)
[2016-06-03 12:41] LABS: INTERNATIONAL NORMALIZED RATIO 1.5 RATIO; PROTHROMBIN TIME - PATIENT 16.7 SEC (9.8-11.6)
[2016-06-03 12:42] LABS: POTASSIUM 3.3 MEQ/L (3.5-5.1)
--- NOTE | 2016-06-03 14:10 | HHI.PR ---
Subjective Remarks Follow-up ascites, altered mental status. The patient has been confused. He does awaken, but does not answer questions. Abdomen is distended and he appears uncomfortable. Objective Vitals Vital Signs Date Time Temp Pulse Resp B/P Pulse Ox O2 Delivery O2 Flow Rate FiO2 06/03/16 13:39 18 06/03/16 13:00 92 06/03/16 12:09 88 06/03/16 11:40 97.8 85 20 100/71 100 06/03/16 11:40 85 06/03/16 10:56 97.8 85 20 99/73 100 06/03/16 10:00 66 06/03/16 09:00 66 06/03/16 08:45 71 20 112/76 100 06/03/16 08:45 71 06/03/16 07:15 83 24 107/73 98 Nasal Cannula 2 06/03/16 06:05 84 16 104/68 100 Nasal Cannula 2 06/03/16 04:43 97.8 93 16 100/65 99 Nasal Cannula 2 06/03/16 04:35 98.0 90 16 102/68 100 Nasal Cannula 2 06/03/16 03:05 98.0 96 16 110/62 99 Nasal Cannula 2 06/03/16 02:50 97.6 98 16 112/64 100 Room Air 06/03/16 02:31 97.4 80 18 114/75 100 Nasal Cannula 2 06/03/16 01:36 76 44 106/70 98 Room Air 06/02/16 23:22 98.9 108 14 104/65 97 Room Air 06/02/16 22:46 80 16 128/72 96 Room Air 06/02/16 21:11 90 12 112/68 98 Room Air 06/02/16 20:25 86 12 108/70 94 Room Air 06/02/16 19:43 98 16 96 Nasal Cannula 2 06/02/16 19:35 87 14 104/67 96 Room Air 06/02/16 17:43 98.9 95 16 125/64 100 I/O 06/02/16 06/02/16 06/02/16 06/03/16 06/03/16 06/03/16 07:00 15:00 23:00 07:00 15:00 23:00 Intake Total 716 ml Balance 716 ml Intake Packed Cells 500 ml FFP 216 ml Result Diagram: 06/03/16 1127 06/03/16 1127 Imaging Last Impressions Chest X-Ray 06/03/16 0000 Signed Impressions: Service Date/Time: Friday, June 03, 2016 02:12 - CONCLUSION: No acute disease. No significant change has occurred. Kervin Garza MD Head CT 06/02/16 1726 Signed Impressions: Service Date/Time: Thursday, June 02, 2016 19:04 - CONCLUSION: 1. Questionable small intraparenchymal hematoma involving the right middle cerebellar peduncle. 2. Large right parietal soft tissue hematoma. Haider Reinoso Jr., MD Cervical Spine CT 06/02/16 0000 Signed Impressions: Service Date/Time: Thursday, June 02, 2016 19:04 - CONCLUSION: 1. No fracture or dislocation. 2. Degenerative changes. 3. Calcified atherosclerotic plaque involving the carotid arteries bilaterally. Haider Reinoso Jr., MD Objective Remarks General: Chronically ill-appearing male in no acute distress. Heart: Regular rate and rhythm. No murmur. Lungs: Clear to auscultation bilaterally. No wheezes, rales, or rhonchi. Breathing is nonlabored. Abdomen: Soft, distended. Large amount of ascites noted. Extremities: No lower extremity edema. Psych: Lethargic. Urinary Catheter: Yes Assessment to: Continue Danielle insert reason: Measure Accurate Output Vascular Central Line Catheter: No A/P Problem List: (1) Altered mental status ICD Code: R41.82 Status: Acute (2) Intracranial hemorrhage ICD Code: I62.9 Status: Acute (3) Anemia ICD Code: D64.9 Status: Acute (4) Coagulopathy ICD Code: D68.9 Status: Acute (5) Cirrhosis ICD Code: K74.60 Status: Chronic (6) Hyperammonemia ICD Code: E72.20 Status: Acute (7) Hepatic encephalopathy ICD Code: K72.90 Status: Acute (8) Hypokalemia ICD Code: E87.6 Status: Acute Assessment and Plan 1. Encephalopathy: Secondary to liver disease versus intracranial hemorrhage. Ammonia level is elevated. 2. Intracranial hemorrhage: Appreciate neurosurgery recommendations. MRI ordered. 3. Coagulopathy: Patient received 2 units of FFP and 2 units PRBCs. Continue phytonadione. Monitor INR. 4. Ascites: Ultrasound-guided paracentesis order, medically necessary. Evaluate for SBP. Continue antibiotics. 5. DVT prophylaxis: SCDs, [place] hose. Avoid chemical prophylaxis secondary to intracranial hemorrhage. 6. Hypokalemia: Supplement potassium. Problem Qualifiers (1) Altered mental status: Qualified Code: R41.82 - Altered mental status, unspecified altered mental status type (2) Anemia: Qualified Code: D64.9 - Anemia, unspecified type (3) Cirrhosis: Qualified Code: K74.60 - Cirrhosis of liver with ascites, unspecified hepatic cirrhosis type Sam Eubanks MD Jun 03, 2016 14:10
[2016-06-03] MEDS: NS + KCL 20 MEQ INJ 1,000 ML IV SCH (14:17)
--- NOTE | 2016-06-03 17:23 | RADRPT ---
EXAM DATE/TIME: 06/03/2016 15:12 [facility] COMPARISON: US GUIDED ABD PARACENTESIS, May 06, 2016, 14:26. INDICATIONS : Ascites. MEDICAL HISTORY : Hypertension. Gastroesophageal reflux disease. Hepatitis C. Cirrhosis. SURGICAL HISTORY : Paracentesis. ENCOUNTER: Initial ACUITY: 1 month PAIN SCORE: Non-responsive LOCATION: Right lower quadrant [place] [address] cc of clear, yellow fluid was removed. Fluid was sent to lab for ordered studies. Post procedure scanning reveals no hematoma or other complication. TECHNIQUE: 1. Ultrasound guidance for abdominal paracentesis. 2. Paracentesis. The risks, benefits, and alternatives to ultrasound guided paracentesis were explained to the patient in detail including the risk of bleeding and infection. Written and verbal informed consent was obt ained. With the patient on the ultrasound table, ultrasound imaging was used to select the most appropriate approach for paracentesis. Overlying skin was prepped and draped in the usual sterile fashion and wi th a local anesthetic, a dermatotomy was made with an 11 blade scalpel. A 6 [place] [id number] ca theter was introduced into the peritoneal cavity and fluid was collected. The patient tolerated the procedure well and left the ultrasound suite in stable condition. CONCLUSION: Uncomplicated ultrasound guided paracentesis. Anil Farias MD on June 03, 2016 at 17:21 Board Certified Radiologist. This report was verified electronically.
[2016-06-03 18:46] LABS: PERITONEAL HISTIOCYTES 16 %; PERITONEAL LYMPHS 28 %; PERITONEAL MESOTHELIAL 4 %; PERITONEAL MONOS 24 %; PERITONEAL POLYS(SEGS) 28 %
[2016-06-03 18:47] LABS: PERITONEAL WBC 183 /MM3 (0-10)
[2016-06-03] MEDS ORDERED: ALBUMIN HUMAN 25% 75 GM IV ONE (20:00)
[2016-06-04] VITALS (20 sets, daily range): BP systolic 98–131; BP diastolic 68–80; PULSE 61–111; RESP 18–20; TEMP 97.4–98.2; O2SAT 95–100
[2016-06-04] MEDS: PIPERACIL-TAZO 4.5 GM PREMIX 100 ML IV SCH ×4 (01:37→20:25)
[2016-06-04] MEDS: PANTOPRAZOLE SODIUM 40 MG VIAL IV PUSH SCH ×2 (03:27→17:43)
[2016-06-04] MEDS: NS + KCL 20 MEQ INJ 1,000 ML IV SCH (03:37)
[2016-06-04 07:05] LABS: AUTOMATED NEUTROPHIL # 1.5 TH/MM3 (1.8-7.7); BASOPHIL % 0.5 % (0.0-2.0); EOSINOPHIL % 1.7 % (0.0-4.0); HEMATOCRIT 28.7 % (39.0-51.0); LYMPH % 28.8 % (9.0-44.0); LYMPHOCYTE # 0.8 TH/MM3 (1.0-4.8); MEAN CELL VOLUME 78.5 FL (80.0-100.0); MEAN CORPUSCULAR HEMOGLOBIN 26.1 PG (27.0-34.0); MEAN CORPUSCULAR HGB CONC 33.2 % (32.0-36.0); MONO % 14.8 % (0.0-8.0); NEUT % 54.2 % (16.0-70.0); PLATELET COUNT 81 TH/MM3 (150-450); RED BLOOD COUNT 3.65 MIL/MM3 (4.50-5.90); RED CELL DISTRIBUTION WIDTH 19.4 % (11.6-17.2); WHITE BLOOD COUNT 2.7 TH/MM3 (4.0-11.0)
[2016-06-04 07:11] LABS: HEMO FLAGS AUTO DIFF
[2016-06-04 08:10] LABS: PLATELET MORPHOLOGY ENLARGED (NORMAL); SCAN/DIFF AUTO DIFF CONFIRMED
--- NOTE | 2016-06-04 08:31 | HHI.PR ---
Subjective Remarks Follow up encephalopathy, ascites, hypokalemia. The patient is more alert today. He is confused. States that his abdomen feels better. Objective Vitals Vital Signs Date Time Temp Pulse Resp B/P Pulse Ox O2 Delivery O2 Flow Rate FiO2 06/04/16 06:00 67 06/04/16 04:00 97.8 70 20 106/70 100 06/04/16 04:00 100 Room Air 06/04/16 04:00 61 06/04/16 02:00 85 06/04/16 00:00 98.0 85 20 131/80 99 06/04/16 00:00 85 06/04/16 00:00 99 Nasal Cannula 2.00 06/03/16 20:00 98.1 85 20 102/68 100 06/03/16 20:00 85 06/03/16 20:00 100 Nasal Cannula 2.00 06/03/16 18:04 87 06/03/16 17:50 97.6 75 20 93/64 100 06/03/16 17:30 97.6 76 20 93/60 100 06/03/16 16:49 100 Nasal Cannula 2.00 06/03/16 16:10 98.1 82 18 105/74 100 06/03/16 15:25 85 06/03/16 15:25 97.8 81 20 129/77 100 06/03/16 14:06 92 06/03/16 13:39 18 06/03/16 13:00 92 06/03/16 12:09 88 06/03/16 11:40 97.8 85 20 100/71 100 06/03/16 11:40 85 06/03/16 10:56 97.8 85 20 99/73 100 06/03/16 10:00 66 06/03/16 09:00 66 06/03/16 08:45 71 20 112/76 100 06/03/16 08:45 71 I/O 06/03/16 06/03/16 06/03/16 06/04/16 06/04/16 06/04/16 07:00 15:00 23:00 07:00 15:00 23:00 Intake Total 716 ml 1473 ml 700 ml Output Total 600 ml 300 ml Balance 716 ml 873 ml 400 ml Intake Oral 240 ml IV Total 926 ml 400 ml Albumin 300 ml Packed Cells 500 ml FFP 216 ml 307 ml Output Urine Total 600 ml 300 ml # Bowel Movements 0 0 Result Diagram: 06/04/16 0637 06/03/16 1127 Imaging Last Impressions Head CT 06/03/16 0600 Signed Impressions: Service Date/Time: Friday, June 03, 2016 08:05 - CONCLUSION: Abnormal CT scan. MRI may be of benefit to confirm hemorrhage. Tyson Farias MD FACR Cyst Biopsy Asp-Paracentesis US 06/03/16 0000 Signed Impressions: Service Date/Time: Friday, June 03, 2016 15:12 - CONCLUSION: Uncomplicated ultrasound guided paracentesis. Anil Farias MD Chest X-Ray 06/03/16 0000 Signed Impressions: Service Date/Time: Friday, June 03, 2016 02:12 - CONCLUSION: No acute disease. No significant change has occurred. Kervin Garza MD Cervical Spine CT 06/02/16 0000 Signed Impressions: Service Date/Time: Thursday, June 02, 2016 19:04 - CONCLUSION: 1. No fracture or dislocation. 2. Degenerative changes. 3. Calcified atherosclerotic plaque involving the carotid arteries bilaterally. Haider Reinoso Jr., MD Objective Remarks General: Chronically ill-appearing male in no acute distress. Heart: Regular rate and rhythm. No murmur. Lungs: Clear to auscultation bilaterally. No wheezes, rales, or rhonchi. Breathing is nonlabored. Abdomen: Soft, mildly distended. Extremities: No lower extremity edema. Psych: Alert, confused. Not oriented to year, month. Procedures 06/03/16 paracentesis Urinary Catheter: Yes Assessment to: Continue Danielle insert reason: Measure Accurate Output Vascular Central Line Catheter: No A/P Problem List: (1) Intracranial hemorrhage ICD Code: I62.9 Status: Acute (2) Anemia ICD Code: D64.9 Status: Acute (3) Coagulopathy ICD Code: D68.9 Status: Acute (4) Cirrhosis ICD Code: K74.60 Status: Chronic (5) Hyperammonemia ICD Code: E72.20 Status: Acute (6) Hepatic encephalopathy ICD Code: K72.90 Status: Acute (7) Hypokalemia ICD Code: E87.6 Status: Acute Assessment and Plan 1. Encephalopathy: Secondary to liver disease versus intracranial hemorrhage. Ammonia level is now WNL. 2. Intracranial hemorrhage: Appreciate neurosurgery recommendations. MRI ordered. 3. Coagulopathy: Patient received 2 units of FFP and 2 units PRBCs. Continue phytonadione. Monitor INR. 4. Ascites: Status post ultrasound-guided paracentesis with removal of 13 L fluid. Ascitic fluid analysis is not consistent with SBP. 5. DVT prophylaxis: SCDs, [place] hose. Avoid chemical prophylaxis secondary to intracranial hemorrhage. 6. Hypokalemia: Supplement potassium and recheck labs in the morning. 7. Liver failure: Consult GI. Problem Qualifiers (1) Anemia: Qualified Code: D64.9 - Anemia, unspecified type (2) Cirrhosis: Qualified Code: K74.60 - Cirrhosis of liver with ascites, unspecified hepatic cirrhosis type Sam Eubanks MD Jun 04, 2016 08:31
[2016-06-04 08:54] LABS: ALKALINE PHOSPHATASE 42 U/L (45-117); ALT (GPT) 15 U/L (12-78); ANION GAP 10 MEQ/L (5-15); AST (GOT) 19 U/L (15-37); BICARBONATE 22.2 MEQ/L (21.0-32.0); BLOOD UREA NITROGEN 16 MG/DL (7-18); CHLORIDE 112 MEQ/L (98-107); GLOMERULAR FILTRATION RATE 105 ML/MIN (>89); MAGNESIUM 1.5 MG/DL (1.5-2.5); SODIUM (NA) 144 MEQ/L (136-145); TOTAL BILIRUBIN ADULT 2.9 MG/DL (0.2-1.0)
[2016-06-04 09:05] LABS: POTASSIUM 2.8 MEQ/L (3.5-5.1)
[2016-06-04] MEDS: PHYTONADIONE 5 MG TAB PO SCH (09:41)
[2016-06-04] MEDS: SODIUM CHLORIDE 0.9% FLUSH 5 ML FLUSH FLUSH SCH ×2 (09:42→20:26)
[2016-06-04 09:51] LABS: INTERNATIONAL NORMALIZED RATIO 1.6 RATIO; PROTHROMBIN TIME - PATIENT 17.6 SEC (9.8-11.6)
[2016-06-04] MEDS ORDERED: HALOPERIDOL LACTATE 5 MG/ML AMP IV PUSH ONE ×2 (10:00→22:45)
[2016-06-04] MEDS: POTASSIUM CHLOR 20 MEQ PREMIX 100 ML IV SCH ×2 (12:12→14:11)
--- NOTE | 2016-06-04 14:08 | RADRPT ---
EXAM DATE/TIME: 06/04/2016 13:22 [place] COMPARISON: CT BRAIN W/O CONTRAST, May 04, 2016, 17:58. CT BRAIN W/O CONTRAST, June 02, 2016, 19:04. CT BRAIN W/O CONTRAST, June 03, 2016, 8:05. INDICATIONS : Hemorrhage. Evaluate right cerebellar peduncle lesion. MEDICAL HISTORY : Gastroesophageal reflux disease. Hepatitis C. Cirrhosis. Pleurisy. SURGICAL HISTORY : None. ENCOUNTER: Subsequent ACUITY: 3 day PAIN SCORE: Nonresponsive. LOCATION: cranial TECHNIQUE: Multiplanar, multisequence MRI of the brain was performed without contrast. FINDINGS: CEREBRUM: The ventricles are normal for age. No evidence of midline shift, mass lesion or acute infarction. N o extraaxial fluid collections are seen. The pituitary gland and suprasellar cistern are normal in c onfiguration. WHITE MATTER: Abnormalities as noted below. POSTERIOR FOSSA: A focal area of increased density seen within the right cerebellum on prior CT demonstrates blooming on gradient echo imaging consistent with a small hemorrhage. There is adjacent increased T2 signal wi thout corresponding restricted diffusion. There is a linear focus of increased T2 signal identified w ithin the right and left cerebellar peduncle which is not associated with hemorrhage or restricted di ffusion. There are similar-appearing areas of increased T2 signal identified within the white matter of the left temporal lobe on series 14 image 15. The 4th ventricle is midline. The cerebellopontine a ngle is unremarkable. The cerebellar tonsils are normal in position. DIFFUSION IMAGING: No focal areas of restricted diffusion are seen. No evidence of acute infarction. EXTRACRANIAL: The visualized portions of the orbits and paranasal sinuses are unremarkable. Focal soft tissue edema overlying the right occipital lobe at the site of prior contusion. CONCLUSION: Small focal hemorrhage identified in the region of the right cerebellum. Linear areas of increased T2 signal identified within the right and left cerebellar peduncle and within the left temporal lobe wi thout corresponding hemorrhage or restricted diffusion. These may represent sequelae of trauma. Brunilda Polanco MD on June 04, 2016 at 13:54 Board Certified Radiologist. This report was verified electronically.
--- NOTE | 2016-06-04 15:53 | PD.CONS ---
HPI History of Present Illness This is a 50 year old male patient with a hx of liver cirrhosis and hepatic encephalopathy. He was recently hospitalized from 05/04- 05/09 for hepatic encephalopathy, rhabdomyolysis, and elevated troponin. During this admission, he was noted to have ascites and underwent a paracentesis on 05/07 with 10L of fluid removed. He was discharged home on 05/09 with levaquin, spironolactone, lactulose, pantoprazole, and rifaximin. He was then brought to the ER for evaluation on 06/02 by [facility] after a fall in his neighbor's yard. Head CT (06/02/16 )----> 1. Questionable small intraparenchymal hematoma involving the right middle cerebellar peduncle. 2. Large right parietal soft tissue hematoma. He was evaluated by neurosurgery for his cerebral contusion and he then had a repeat CT scan on (06/03/16) which revealed a small focal area of high attenuation seen in the right cerebellar peduncle, the cerebellar hemisphere appears this is probably a hemorrhage given it's evolving appearance. The supratentorial brain is unremarkable. No evidence for skull fracture. Brain MRI (06/04/16)----> Small focal hemorrhage identified in the region of the right cerebellum. Linear areas of increased T2 signal identified within the right and left cerebellar peduncle and within the left temporal lobe without corresponding hemorrhage or restricted diffusion. These may represent sequelae of trauma. He was noted to have abdominal ascites and he underwent an us paracentesis (06/03/16) and had 13,000 cc fluid removed. Culture has no growth x 24 hours. Cytology is pending. He received a one time dose of albumin afterwards. He does have a hx of liver cirrhosis with coagulopathy and is currently getting Vitamin K. GI has been consulted for liver disease and ascites. The patient is currently lethargic and confused and unable to provide any history. His ammonia is 21. Recent CT scan abdomen and pelvis without iv contrast (05/23/16)----> small shrunken liver consistent with advanced cirrhosis , spleen is of normal size, tense ascites evidence, varicosities are suspected however I cannot visualize these on the noncontrast exam. It is unclear if he has continued to drink or if he has been taking his lactulose at home. We have previously evaluated him for iron deficiency anemia with EGD/Colonoscopy ()-----> severe gastritis, gastropathy, duodenal ulcers, esophagitis with irregular z line, normal appearing colonic mucosa. Pathology revealed gastral antral mucosal biopsy with foveolar hyperplasia, telangiectasia and vascular congestion negative for gastritis, gastropathy, metaplasia, and dysplasia, anna stain negative for helicobacter. (Thelma Conte) PFSH Past Medical History Anxiety Depression Pleurisy Gastroesophageal reflux disease Alcohol abuse Hepatitis C Liver cirrhosis Ascites Esophagitis, duodenal ulcers Past Surgical History EGD (Thelma Conte) Coded Allergies: Morphine (Verified Allergy, Unknown, 06/02/16) Medications Allergies Coded Allergies Type Severity Reaction Last Updated Verified Morphine Allergy Unknown 06/02/16 Yes Active Scripts Medications Dose Route/Sig Days Date Category Prilosec (Omeprazole Magnesium) 10 Mg Pow 10 Mg PO HS 05/26/16 Reported Family History The patient has son who from liver disease Social History PER EMR: Patient is with 2 children Alcohol: had his last alcoholic drink 9 months ago- of note he was positive for alcohol in December of 2015 Tobacco: Reports he smokes one pack of cigarettes per day (Thelma Conte) Review of Systems Psychiatric: COMPLAINS OF: Confusion ROS Unable to obtain (Thelma Conte) GI Exam Vitals I&O Vital Signs Date Time Temp Pulse Resp B/P Pulse Ox O2 Delivery O2 Flow Rate FiO2 06/04/16 12:00 78 06/04/16 11:00 71 06/04/16 11:00 97.7 74 18 101/69 98 06/04/16 11:00 99 Room Air 06/04/16 10:00 76 06/04/16 09:00 76 06/04/16 08:00 70 06/04/16 07:00 72 06/04/16 07:00 97.5 81 18 98/70 99 06/04/16 07:00 99 Room Air 06/04/16 06:00 67 06/04/16 04:00 97.8 70 20 106/70 100 06/04/16 04:00 100 Room Air 06/04/16 04:00 61 06/04/16 02:00 85 06/04/16 00:00 98.0 85 20 131/80 99 06/04/16 00:00 85 06/04/16 00:00 99 Nasal Cannula 2.00 06/03/16 20:00 98.1 85 20 102/68 100 06/03/16 20:00 85 06/03/16 20:00 100 Nasal Cannula 2.00 06/03/16 18:04 87 06/03/16 17:50 97.6 75 20 93/64 100 06/03/16 17:30 97.6 76 20 93/60 100 06/03/16 16:49 100 Nasal Cannula 2.00 06/03/16 16:10 98.1 82 18 105/74 100 06/03/16 15:25 85 06/03/16 15:25 97.8 81 20 129/77 100 I/O 06/03/16 06/03/16 06/03/16 06/04/16 06/04/16 06/04/16 07:00 15:00 23:00 07:00 15:00 23:00 Intake Total 716 ml 1473 ml 700 ml Output Total 600 ml 300 ml Balance 716 ml 873 ml 400 ml Intake Oral 240 ml IV Total 926 ml 400 ml Albumin 300 ml Packed Cells 500 ml FFP 216 ml 307 ml Output Urine Total 600 ml 300 ml # Bowel Movements 0 0 Imaging Last Impressions Brain MRI 06/04/16 0000 Signed Impressions: Service Date/Time: May 13:22 - CONCLUSION: Small focal hemorrhage identified in the region of the right cerebellum. Linear areas of increased T2 signal identified within the right and left cerebellar peduncle and within the left temporal lobe without corresponding hemorrhage or restricted diffusion. These may represent sequelae of trauma. Brunilda Polanco MD Head CT 06/03/16 0600 Signed Impressions: Service Date/Time: Friday, June 03, 2016 08:05 - CONCLUSION: Abnormal CT scan. MRI may be of benefit to confirm hemorrhage. Tyson Farias MD FACR Cyst Biopsy Asp-Paracentesis US 06/03/16 0000 Signed Impressions: Service Date/Time: Friday, June 03, 2016 15:12 - CONCLUSION: Uncomplicated ultrasound guided paracentesis. Anil Farias MD Chest X-Ray 06/03/16 0000 Signed Impressions: Service Date/Time: Friday, June 03, 2016 02:12 - CONCLUSION: No acute disease. No significant change has occurred. Kervin Garza MD Cervical Spine CT 06/02/16 0000 Signed Impressions: Service Date/Time: Thursday, June 02, 2016 19:04 - CONCLUSION: 1. No fracture or dislocation. 2. Degenerative changes. 3. Calcified atherosclerotic plaque involving the carotid arteries bilaterally. Haider Reinoso Jr., MD Laboratory Test 06/03/16 06/04/16 06/04/16 15:41 06:37 08:51 Peritoneal Fluid WBC 183 /MM3 Peritoneal Fluid RBC 77 /MM3 Peritoneal Fluid Neutrophils 28 % Peritoneal Fluid Lymphocytes 28 % Peritoneal Fluid Monocytes 24 % Peritoneal Fluid Mesothelial 4 % Cells Peritoneal Fluid Histiocytes 16 % White Blood Count 2.7 TH/MM3 Red Blood Count 3.65 MIL/MM3 Hemoglobin 9.5 GM/DL Hematocrit 28.7 % Mean Corpuscular Volume 78.5 FL Mean Corpuscular Hemoglobin 26.1 PG Mean Corpuscular Hemoglobin 33.2 % Concent Red Cell Distribution Width 19.4 % Platelet Count 81 TH/MM3 Mean Platelet Volume 9.8 FL Neutrophils (%) (Auto) 54.2 % Lymphocytes (%) (Auto) 28.8 % Monocytes (%) (Auto) 14.8 % Eosinophils (%) (Auto) 1.7 % Basophils (%) (Auto) 0.5 % Neutrophils # (Auto) 1.5 TH/MM3 Lymphocytes # (Auto) 0.8 TH/MM3 Monocytes # (Auto) 0.4 TH/MM3 Eosinophils # (Auto) 0.0 TH/MM3 Basophils # (Auto) 0.0 TH/MM3 CBC Comment AUTO DIFF Differential Comment AUTO DIFF CONFIRMED Platelet Morphology Comment ENLARGED Sodium Level 144 MEQ/L Potassium Level 2.8 MEQ/L Chloride Level 112 MEQ/L Carbon Dioxide Level 22.2 MEQ/L Anion Gap 10 MEQ/L Blood Urea Nitrogen 16 MG/DL Creatinine 0.78 MG/DL Estimat Glomerular Filtration 105 ML/MIN Rate Random Glucose 78 MG/DL Calcium Level 8.5 MG/DL Magnesium Level 1.5 MG/DL Total Bilirubin 2.9 MG/DL Aspartate Amino Transf 19 U/L (AST/SGOT) Alanine Aminotransferase 15 U/L (ALT/SGPT) Alkaline Phosphatase 42 U/L Ammonia 21 MCMOL/L Total Protein 5.9 GM/DL Albumin 2.7 GM/DL Prothrombin Time 17.6 SEC Prothromb Time International 1.6 RATIO Ratio Date/Time Procedure Status Source Growth 06/03/16 15:41 Gram Stain - Final Resulted Fluid Peritoneal Fluid 06/03/16 15:41 Body Fluid Culture - Preliminary Resulted Fluid Peritoneal Fluid NO GROWTH IN 24 HOURS. Physical Examination HEENT:Normocephalic; atraumatic; no jaundice. CHEST: CTA CARDIAC: Regular rate and rhythm with no murmur gallop or rubs. ABDOMEN: Soft, nondistended, nontender; hepatosplenomegaly; bowel sounds are present in all four quadrants. Ascites. EXTREMITIES: No clubbing, cyanosis, or edema. SKIN: Normal; no rash; no jaundice. 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 Unclear how much of this is related to his TBI and how much is hepatic encephalopathy. Ammonia level is 21, but he was recently hospitalized for hepatic encephalopathy and it is unclear if he had been taking his lactulose. Of note, during his last hospitalization he was positive for opiates and benzodiazepines. There was not a toxicology screen during this hospitalization. Recommend Lactulose 30mL po BID. If unable to take, will need NGT. 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 MELD 13. T. Bili 2.9, AST 19, ALT 15, Alk Phosph 42. - Ascites. S/P paracentesis on 05/07 with 10L of fluid removed and again on () and had 13,000 cc fluid removed. Culture has no growth x 24 hours. Cytology is pending. S/P Albumin x 1. - Hepatic encephalopathy. Ammonia 21, but almost obtunded. Unclear how much is related to TBI and hepatic encephalopathy or if he was overmedicated prior to arrival to ER. - Coagulopathy/Thrombocytopenia. PT 17.6, INR 1.6. - Hypokalemia, S/P replacement per primary - Anemia. Pt has hx of iron deficiency anemia and had EGD/Colonoscopy (11/20/15) -----> severe gastritis, gastropathy, duodenal ulcers, esophagitis with irregular z line, normal appearing colonic mucosa. Pathology revealed gastral antral mucosal biopsy with foveolar hyperplasia, telangiectasia and vascular congestion negative for gastritis, gastropathy, metaplasia, and dysplasia, anna stain negative for helicobacter. - TBI. S/P Fall on 06/02 by [facility] after a fall in his neighbor's yard. Head CT ()----> 1. Questionable small intraparenchymal hematoma involving the right middle cerebellar peduncle. 2. Large right parietal soft tissue hematoma. He was evaluated by neurosurgery for his cerebral contusion and he then had a repeat CT scan on () which revealed a small focal area of high attenuation seen in the right cerebellar peduncle , the cerebellar hemisphere appears this is probably a hemorrhage given it's evolving appearance. The supratentorial brain is unremarkable. No evidence for skull fracture. Brain MRI (06/04/16)----> Small focal hemorrhage identified in the region of the right cerebellum. Linear areas of increased T2 signal identified within the right and left cerebellar peduncle and within the left temporal lobe without corresponding hemorrhage or restricted diffusion. These may represent sequelae of trauma. PLAN: - Insert NGT - Lactulose 30 mL po BID - Spironolactone 25mg po BID - Furosemide 20mg po daily - Cont. PPI - Cont. Vitamin K - CBC, CMP, PT/INR, Ammonia in am - Await final peritoneal fluid cx - Supportive care - Further recommendations to follow based on results of above - Pt seen and examined by Dr. Becker and myself and this note is written on his behalf (Thelma Conte) Physician Comments seen, examined agree with above more awake, taking medications on his own now Rifaximin 550 mg po bid (Joan Becker MD) Thelma Conte Jun 04, 2016 15:53 Joan Becker MD Jun 04, 2016 18:51
--- NOTE | 2016-06-04 17:12 | HHI.NSPN ---
History Chief Complaint: sleeping post haldol Interval History 50 yr old with end stage liver disease fell in his neighbour's yard. He is encephalopathic and has very poor balance. Head CT showed a small right cerebellar peduncle bleed. MRI today confirmed that this was in fact a probable hemorrhagic contusion.He was evaluated by PT and his amonia has been corrected. Review of Systems General: Negative for: fever, chills, insomnia Respiratory: Negative for: shortness of breath, cough, sputum Gastrointestinal: Negative for: nausea, vomitting, diarrhea, constipation Exam Results Vital Signs Date Time Temp Pulse Resp B/P Pulse Ox O2 Delivery O2 Flow Rate FiO2 06/04/16 15:00 99 Room Air 06/04/16 15:00 97.4 65 18 102/68 06/04/16 00:00 2.00 Intake and Output 06/03/16 06/03/16 06/04/16 08:00 16:00 00:00 Intake Total 500 ml 1473 ml Output Total 600 ml Balance 500 ml 873 ml Physical Examination Sleeping, comfortable, post haldol sedation, non verbal Pupils 3mm equal and reactive, face symmetric, unable to follow complex commands but can grasp with both hands and move both feet. No spasticity no Babinski Abd distended, RRR, mild jaundice Lab, Micro, Other Results Laboratory Tests Test 06/04/16 06/04/16 06:37 08:51 White Blood Count 2.7 TH/MM3 Red Blood Count 3.65 MIL/MM3 Hemoglobin 9.5 GM/DL Hematocrit 28.7 % Mean Corpuscular Volume 78.5 FL Mean Corpuscular Hemoglobin 26.1 PG Mean Corpuscular Hemoglobin 33.2 % Concent Red Cell Distribution Width 19.4 % Platelet Count 81 TH/MM3 Mean Platelet Volume 9.8 FL Neutrophils (%) (Auto) 54.2 % Lymphocytes (%) (Auto) 28.8 % Monocytes (%) (Auto) 14.8 % Eosinophils (%) (Auto) 1.7 % Basophils (%) (Auto) 0.5 % Neutrophils # (Auto) 1.5 TH/MM3 Lymphocytes # (Auto) 0.8 TH/MM3 Monocytes # (Auto) 0.4 TH/MM3 Eosinophils # (Auto) 0.0 TH/MM3 Basophils # (Auto) 0.0 TH/MM3 CBC Comment AUTO DIFF Differential Comment AUTO DIFF CONFIRMED Platelet Morphology Comment ENLARGED Sodium Level 144 MEQ/L Potassium Level 2.8 MEQ/L Chloride Level 112 MEQ/L Carbon Dioxide Level 22.2 MEQ/L Anion Gap 10 MEQ/L Blood Urea Nitrogen 16 MG/DL Creatinine 0.78 MG/DL Estimat Glomerular Filtration 105 ML/MIN Rate Random Glucose 78 MG/DL Calcium Level 8.5 MG/DL Magnesium Level 1.5 MG/DL Total Bilirubin 2.9 MG/DL Aspartate Amino Transf 19 U/L (AST/SGOT) Alanine Aminotransferase 15 U/L (ALT/SGPT) Alkaline Phosphatase 42 U/L Ammonia 21 MCMOL/L Total Protein 5.9 GM/DL Albumin 2.7 GM/DL Prothrombin Time 17.6 SEC Prothromb Time International 1.6 RATIO Ratio Last Impressions Brain MRI 06/04/16 0000 Signed Impressions: Service Date/Time: May 13:22 - CONCLUSION: Small focal hemorrhage identified in the region of the right cerebellum. Linear areas of increased T2 signal identified within the right and left cerebellar peduncle and within the left temporal lobe without corresponding hemorrhage or restricted diffusion. These may represent sequelae of trauma. Brunilda Polanco MD Head CT 06/03/16 0600 Signed Impressions: Service Date/Time: Friday, June 03, 2016 08:05 - CONCLUSION: Abnormal CT scan. MRI may be of benefit to confirm hemorrhage. Tyson Farias MD FACR Cyst Biopsy Asp-Paracentesis US 06/03/16 0000 Signed Impressions: Service Date/Time: Friday, June 03, 2016 15:12 - CONCLUSION: Uncomplicated ultrasound guided paracentesis. Anil Farias MD Chest X-Ray 06/03/16 0000 Signed Impressions: Service Date/Time: Friday, June 03, 2016 02:12 - CONCLUSION: No acute disease. No significant change has occurred. Kervin Garza MD Cervical Spine CT 06/02/16 0000 Signed Impressions: Service Date/Time: Thursday, June 02, 2016 19:04 - CONCLUSION: 1. No fracture or dislocation. 2. Degenerative changes. 3. Calcified atherosclerotic plaque involving the carotid arteries bilaterally. Haider Reinoso Jr., MD Medical Decision Making Impression and Plan Small cerebellar peduncle contusion, thought to be from his fall, no need for further testing unless new clinical findings become evident. Rehab is following. Advance diet and activity as tolerated. Total Minutes: 10 Barrett Byrd Jun 04, 2016 17:12
[2016-06-04] MEDS: SPIRONOLACTONE 25 MG TAB PO SCH (18:39)
[2016-06-04] MEDS: FUROSEMIDE 20 MG TAB PO SCH (18:39)
[2016-06-04] MEDS ORDERED: HALOPERIDOL LACTATE 5 MG/ML AMP IM PRN (20:00)
[2016-06-04] MEDS: LACTULOSE SYRUP 20 GM/30 ML CUP PO SCH (20:23)
[2016-06-04] MEDS: RIFAXIMIN 550 MG TAB PO SCH (21:00)
[2016-06-05] VITALS (20 sets, daily range): BP systolic 95–122; BP diastolic 63–83; PULSE 65–99; RESP 16–18; TEMP 94–98.3; O2SAT 96–99
[2016-06-05] MEDS: PIPERACIL-TAZO 4.5 GM PREMIX 100 ML IV SCH ×4 (02:45→20:41)
[2016-06-05] MEDS: PANTOPRAZOLE SODIUM 40 MG VIAL IV PUSH SCH ×2 (02:46→17:34)
[2016-06-05 06:56] LABS: AUTOMATED NEUTROPHIL # 2.3 TH/MM3 (1.8-7.7); BASOPHIL % 0.7 % (0.0-2.0); EOSINOPHIL # 0.1 TH/MM3 (0-0.4); EOSINOPHIL % 2.3 % (0.0-4.0); HEMATOCRIT 25.4 % (39.0-51.0); LYMPH % 24.8 % (9.0-44.0); MEAN CELL VOLUME 78.2 FL (80.0-100.0); MEAN CORPUSCULAR HEMOGLOBIN 26.6 PG (27.0-34.0); MONO % 13.5 % (0.0-8.0); NEUT % 58.7 % (16.0-70.0); PLATELET COUNT 94 TH/MM3 (150-450); RED BLOOD COUNT 3.25 MIL/MM3 (4.50-5.90); RED CELL DISTRIBUTION WIDTH 19.9 % (11.6-17.2); WHITE BLOOD COUNT 3.9 TH/MM3 (4.0-11.0)
[2016-06-05 06:59] LABS: HEMO FLAGS AUTO DIFF
[2016-06-05 07:03] LABS: INTERNATIONAL NORMALIZED RATIO 1.5 RATIO; PROTHROMBIN TIME - PATIENT 16.7 SEC (9.8-11.6)
[2016-06-05 07:22] LABS: ALKALINE PHOSPHATASE 46 U/L (45-117); ALT (GPT) 15 U/L (12-78); ANION GAP 11 MEQ/L (5-15); AST (GOT) 18 U/L (15-37); BICARBONATE 21.5 MEQ/L (21.0-32.0); BLOOD UREA NITROGEN 17 MG/DL (7-18); CHLORIDE 114 MEQ/L (98-107); GLOMERULAR FILTRATION RATE 82 ML/MIN (>89); MAGNESIUM 1.5 MG/DL (1.5-2.5); SODIUM (NA) 146 MEQ/L (136-145); TOTAL BILIRUBIN ADULT 1.9 MG/DL (0.2-1.0)
[2016-06-05 07:37] LABS: POTASSIUM 2.9 MEQ/L (3.5-5.1)
--- NOTE | 2016-06-05 08:02 | HHI.PR ---
Subjective Remarks Follow up liver failure, ascites, encephalopathy. Patient denies abdominal pain. He does report nausea. He is more alert today, but does remain confused. Objective Vitals Vital Signs Date Time Temp Pulse Resp B/P Pulse Ox O2 Delivery O2 Flow Rate FiO2 06/05/16 04:30 94.0 06/05/16 03:20 98 Room Air 06/05/16 00:27 98.1 65 18 122/83 96 06/05/16 00:23 98 Room Air 06/04/16 23:00 111 06/04/16 22:00 93 06/04/16 21:00 85 06/04/16 20:03 98.2 65 18 103/75 95 06/04/16 20:00 77 06/04/16 19:40 97 Room Air 06/04/16 19:00 76 06/04/16 18:00 70 06/04/16 17:00 65 06/04/16 16:00 64 06/04/16 15:00 99 Room Air 06/04/16 15:00 97.4 65 18 102/68 99 06/04/16 15:00 65 06/04/16 12:00 78 06/04/16 11:00 71 06/04/16 11:00 97.7 74 18 101/69 98 06/04/16 11:00 99 Room Air 06/04/16 10:00 76 06/04/16 09:00 76 06/04/16 08:00 70 I/O 06/04/16 06/04/16 06/04/16 06/05/16 06/05/16 06/05/16 07:00 15:00 23:00 07:00 15:00 23:00 Intake Total 700 ml 644 ml 1384 ml Output Total 300 ml 400 ml 100 ml Balance 400 ml 244 ml 1284 ml Intake Oral 680 ml IV Total 400 ml 644 ml 704 ml Albumin 300 ml Output Urine Total 300 ml 400 ml 100 ml # Bowel Movements 0 0 0 Result Diagram: 06/05/16 0453 06/05/16 0453 Imaging Last Impressions Brain MRI 06/04/16 0000 Signed Impressions: Service Date/Time: May 13:22 - CONCLUSION: Small focal hemorrhage identified in the region of the right cerebellum. Linear areas of increased T2 signal identified within the right and left cerebellar peduncle and within the left temporal lobe without corresponding hemorrhage or restricted diffusion. These may represent sequelae of trauma. Brunilda Polanco MD Head CT 06/03/16 0600 Signed Impressions: Service Date/Time: Friday, June 03, 2016 08:05 - CONCLUSION: Abnormal CT scan. MRI may be of benefit to confirm hemorrhage. Tyson Farias MD FACR Cyst Biopsy Asp-Paracentesis US 06/03/16 0000 Signed Impressions: Service Date/Time: Friday, June 03, 2016 15:12 - CONCLUSION: Uncomplicated ultrasound guided paracentesis. Anil Farias MD Chest X-Ray 06/03/16 0000 Signed Impressions: Service Date/Time: Friday, June 03, 2016 02:12 - CONCLUSION: No acute disease. No significant change has occurred. Kervin Garza MD Cervical Spine CT 06/02/16 0000 Signed Impressions: Service Date/Time: Thursday, June 02, 2016 19:04 - CONCLUSION: 1. No fracture or dislocation. 2. Degenerative changes. 3. Calcified atherosclerotic plaque involving the carotid arteries bilaterally. Haider Reinoso Jr., MD Objective Remarks General: Chronically ill-appearing male in no acute distress. Heart: Regular rate and rhythm. No murmur. Lungs: Clear to auscultation bilaterally. No wheezes, rales, or rhonchi. Breathing is nonlabored. Abdomen: Soft, moderately distended. Extremities: No lower extremity edema. Psych: Alert, confused. Procedures 06/03/16 paracentesis Urinary Catheter: Yes Assessment to: Continue Danielle insert reason: Measure Accurate Output Vascular Central Line Catheter: No A/P Problem List: (1) Intracranial hemorrhage ICD Code: I62.9 Status: Acute (2) Anemia ICD Code: D64.9 Status: Acute (3) Coagulopathy ICD Code: D68.9 Status: Acute (4) Cirrhosis ICD Code: K74.60 Status: Chronic (5) Hyperammonemia ICD Code: E72.20 Status: Acute (6) Hepatic encephalopathy ICD Code: K72.90 Status: Acute (7) Hypokalemia ICD Code: E87.6 Status: Acute Assessment and Plan 1. Encephalopathy: Secondary to liver disease versus intracranial hemorrhage. Ammonia level increased again today. 2. Intracranial hemorrhage: Appreciate neurosurgery recommendations. MRI ordered. 3. Coagulopathy: Patient received 2 units of FFP and 2 units PRBCs. Continue phytonadione. Monitor INR. 4. Ascites: Status post ultrasound-guided paracentesis with removal of 13 L fluid. Ascitic fluid analysis is not consistent with SBP. 5. DVT prophylaxis: SCDs, [place] hose. Avoid chemical prophylaxis secondary to intracranial hemorrhage. 6. Hypokalemia: Still low. Supplement potassium and recheck labs in the morning. 7. Liver failure: Appreciate GI recommendations. Continue spironolactone, lactulose, Rifaximin. 8. Decreased urine output: We'll request nephrology evaluation. Problem Qualifiers (1) Anemia: Qualified Code: D64.9 - Anemia, unspecified type (2) Cirrhosis: Qualified Code: K74.60 - Cirrhosis of liver with ascites, unspecified hepatic cirrhosis type Sam Eubanks MD Jun 05, 2016 08:02
[2016-06-05 08:22] LABS: PLATELET ESTIMATE SMEAR LOW (NORMAL); TARGET CELLS 1+ (NORMAL)
[2016-06-05 08:23] LABS: PLATELET MORPHOLOGY NORMAL (NORMAL); SCAN/DIFF AUTO DIFF CONFIRMED
[2016-06-05] MEDS: FUROSEMIDE 20 MG TAB PO SCH (09:47)
[2016-06-05] MEDS: PHYTONADIONE 5 MG TAB PO SCH (09:47)
[2016-06-05] MEDS: LACTULOSE SYRUP 20 GM/30 ML CUP PO SCH ×2 (09:47→20:42)
[2016-06-05] MEDS: SODIUM CHLORIDE 0.9% FLUSH 5 ML FLUSH FLUSH SCH ×2 (09:47→20:42)
[2016-06-05] MEDS: SPIRONOLACTONE 25 MG TAB PO SCH (09:47)
[2016-06-05] MEDS: RIFAXIMIN 550 MG TAB PO SCH ×2 (09:47→20:42)
[2016-06-05] MEDS: MAGNESIUM SULFATE 1 GM PREMIX 100 ML IV SCH ×2 (09:48→11:23)
[2016-06-05] MEDS: POTASSIUM CHLOR 20 MEQ PREMIX 100 ML IV SCH ×2 (11:23→11:24)
--- NOTE | 2016-06-05 14:18 | HHI.GIFU ---
Subjective Remarks Resting in bed. Pt more alert today, still slow but awake answering questions and taking po. Does complain of some abdominal discomfort. (Thelma Conte) Objective Vitals I&O Vital Signs Date Time Temp Pulse Resp B/P Pulse Ox O2 Delivery O2 Flow Rate FiO2 06/05/16 07:00 80 06/05/16 07:00 97.6 94 18 101/63 98 06/05/16 04:30 94.0 06/05/16 03:20 98 Room Air 06/05/16 00:27 98.1 65 18 122/83 96 06/05/16 00:23 98 Room Air 06/04/16 23:00 111 06/04/16 22:00 93 06/04/16 21:00 85 06/04/16 20:03 98.2 65 18 103/75 95 06/04/16 20:00 77 06/04/16 19:40 97 Room Air 06/04/16 19:00 76 06/04/16 18:00 70 06/04/16 17:00 65 06/04/16 16:00 64 06/04/16 15:00 99 Room Air 06/04/16 15:00 97.4 65 18 102/68 99 06/04/16 15:00 65 I/O 06/04/16 06/04/16 06/04/16 06/05/16 06/05/16 06/05/16 07:00 15:00 23:00 07:00 15:00 23:00 Intake Total 700 ml 644 ml 1384 ml Output Total 300 ml 400 ml 100 ml Balance 400 ml 244 ml 1284 ml Intake Oral 680 ml IV Total 400 ml 644 ml 704 ml Albumin 300 ml Output Urine Total 300 ml 400 ml 100 ml # Bowel Movements 0 0 0 Laboratory Laboratory Tests Test 06/04/16 06/05/16 20:17 04:53 Ammonia 38 White Blood Count 3.9 Red Blood Count 3.25 Hemoglobin 8.6 Hematocrit 25.4 Mean Corpuscular Volume 78.2 Mean Corpuscular Hemoglobin 26.6 Mean Corpuscular Hemoglobin 34.0 Concent Red Cell Distribution Width 19.9 Platelet Count 94 Mean Platelet Volume 10.4 Neutrophils (%) (Auto) 58.7 Lymphocytes (%) (Auto) 24.8 Monocytes (%) (Auto) 13.5 Eosinophils (%) (Auto) 2.3 Basophils (%) (Auto) 0.7 Neutrophils # (Auto) 2.3 Lymphocytes # (Auto) 1.0 Monocytes # (Auto) 0.5 Eosinophils # (Auto) 0.1 Basophils # (Auto) 0.0 CBC Comment AUTO DIFF Differential Comment AUTO DIFF CONFIRMED Platelet Estimate LOW Platelet Morphology Comment NORMAL Target Cells 1+ Prothrombin Time 16.7 Prothromb Time International 1.5 Ratio Sodium Level 146 Potassium Level 2.9 Chloride Level 114 Carbon Dioxide Level 21.5 Anion Gap 11 Blood Urea Nitrogen 17 Creatinine 0.97 Estimat Glomerular Filtration 82 Rate Random Glucose 98 Calcium Level 8.5 Magnesium Level 1.5 Total Bilirubin 1.9 Aspartate Amino Transf 18 (AST/SGOT) Alanine Aminotransferase 15 (ALT/SGPT) Alkaline Phosphatase 46 Total Protein 5.8 Albumin 2.6 Date/Time Procedure Status Source Growth 06/03/16 15:41 Gram Stain - Final Resulted Fluid Peritoneal Fluid 06/03/16 15:41 Body Fluid Culture - Preliminary Resulted Fluid Peritoneal Fluid NO GROWTH IN 48 HOURS. Imaging Last Impressions Brain MRI 06/04/16 0000 Signed Impressions: Service Date/Time: May 13:22 - CONCLUSION: Small focal hemorrhage identified in the region of the right cerebellum. Linear areas of increased T2 signal identified within the right and left cerebellar peduncle and within the left temporal lobe without corresponding hemorrhage or restricted diffusion. These may represent sequelae of trauma. Brunilda Polanco MD Head CT 06/03/16 0600 Signed Impressions: Service Date/Time: Friday, June 03, 2016 08:05 - CONCLUSION: Abnormal CT scan. MRI may be of benefit to confirm hemorrhage. Tyson Farias MD FACR Cyst Biopsy Asp-Paracentesis US 06/03/16 0000 Signed Impressions: Service Date/Time: Friday, June 03, 2016 15:12 - CONCLUSION: Uncomplicated ultrasound guided paracentesis. Anil Farias MD Chest X-Ray 06/03/16 0000 Signed Impressions: Service Date/Time: Friday, June 03, 2016 02:12 - CONCLUSION: No acute disease. No significant change has occurred. Kervin Garza MD Cervical Spine CT 06/02/16 0000 Signed Impressions: Service Date/Time: Thursday, June 02, 2016 19:04 - CONCLUSION: 1. No fracture or dislocation. 2. Degenerative changes. 3. Calcified atherosclerotic plaque involving the carotid arteries bilaterally. Haider Reinoso Jr., MD Physical Exam HEENT:Normocephalic; atraumatic; no jaundice. CHEST: CTA CARDIAC: Regular rate and rhythm with no murmur gallop or rubs. ABDOMEN: Soft, nondistended, nontender; hepatosplenomegaly; bowel sounds are present in all four quadrants. Ascites. EXTREMITIES: No clubbing, cyanosis, or edema. SKIN: Normal; no rash; no jaundice. 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 Unclear how much of this is related to his TBI and how much is hepatic encephalopathy. Ammonia level is 21, but he was recently hospitalized for hepatic encephalopathy and it is unclear if he had been taking his lactulose. Of note, during his last hospitalization he was positive for opiates and benzodiazepines. There was not a toxicology screen during this hospitalization. Recommend Lactulose 30mL po BID, Xifaxan 550mg po BID. Pt is now taking npo and therefore we can hold off on NGT. 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 MELD 13. T. Bili 1.9, AST 18, ALT 15, Alk Phosph 46. - Ascites. S/P paracentesis on 05/07 with 10L of fluid removed and again on () and had 13,000 cc fluid removed. Culture has no growth x 24 hours. Cytology is pending. S/P Albumin x 1. - Hepatic encephalopathy. Ammonia 21, but was almost obtunded. Unclear how much is related to TBI and hepatic encephalopathy or if he was overmedicated prior to arrival to ER. Much better today. Xifaxan/Lactulose. - Coagulopathy/Thrombocytopenia. PT 16.7, INR 1.5 - Hypokalemia, S/P replacement per primary - Anemia. Pt has hx of iron deficiency anemia and had EGD/Colonoscopy (11/20/15) -----> severe gastritis, gastropathy, duodenal ulcers, esophagitis with irregular z line, normal appearing colonic mucosa. Pathology revealed gastral antral mucosal biopsy with foveolar hyperplasia, telangiectasia and vascular congestion negative for gastritis, gastropathy, metaplasia, and dysplasia, anna stain negative for helicobacter. HH 8.6/ 25.4. - TBI. S/P Fall on 06/02 by EVAC after a fall in his neighbor's yard. Head CT ()----> 1. Questionable small intraparenchymal hematoma involving the right middle cerebellar peduncle. 2. Large right parietal soft tissue hematoma. He was evaluated by neurosurgery for his cerebral contusion and he then had a repeat CT scan on () which revealed a small focal area of high attenuation seen in the right cerebellar peduncle , the cerebellar hemisphere appears this is probably a hemorrhage given it's evolving appearance. The supratentorial brain is unremarkable. No evidence for skull fracture. Brain MRI (06/04/16)----> Small focal hemorrhage identified in the region of the right cerebellum. Linear areas of increased T2 signal identified within the right and left cerebellar peduncle and within the left temporal lobe without corresponding hemorrhage or restricted diffusion. These may represent sequelae of trauma. PLAN: - ELLI, Low Salt - Xifaxan 550mg po BID - Lactulose 30 mL po BID - Increase Spironolactone 25 mg po BID - Furosemide 20mg po daily - Cont. PPI - Cont. Vitamin K - CBC, CMP, PT/INR, Ammonia in am - Supportive care - Further recommendations to follow based on results of above - Pt seen and examined by Dr. Becker and myself and this note is written on his behalf (Thelma Conte) Physician Comments seen, examined agree with above abdominal us -possible recurrent ascites , may need repeat paracentesis (Joan Becker MD) Thelma Conte Jun 05, 2016 14:18 Joan Becker MD Jun 05, 2016 15:15
[2016-06-05] MEDS: NS + KCL 20 MEQ INJ 1,000 ML IV SCH (14:38)
--- NOTE | 2016-06-05 15:37 | PD.CONS ---
HPI Service Nephrology Consult Requested By Raimundo Reason for Consult Low urine output Primary Care Physician No Primary Care Physician History of Present Illness Mr. Valladares is a male with a past medical history of anxiety, depression, GERD, pleurisy, alcohol abuse, and hepatitis C who presented to the emergency room on 06/02/16 for evaluation of altered mental status and fall. Head CT showed questionable small intraparenchymal hematoma involving the right middle cerebellar peduncle. Large right parietal soft tissue hematoma. Cervical spine CT showed degenerative changes and bilateral calcified atherosclerotic plaque of the carotid arteries but no acute fractures or dislocations. Neurosurgery was consulted and recommended admission. He was recently hospitalized from 05/04 - 05/09 for hepatic encephalopathy, rhabdomyolysis, and elevated troponin. During that admission, he was noted to have ascites and underwent a paracentesis on 05/07 with 10L of fluid removed. He was discharged home on with levaquin, spironolactone, lactulose, pantoprazole, and rifaximin. This admission he had a repeat paracentesis (06/03) with 13 liters removed. His urine output has dropped over the past few days. He has normal renal function, (Cr 0.92) and he has a cotto in place. He has been severely hypokalemia requiring IV replacement. We were consulted for management. (Reyna Leong) Review of Systems Constitutional: COMPLAINS OF: Fatigue, Change in appetite Cardiovascular: DENIES: Chest pain Gastrointestinal: DENIES: Abdominal pain Psychiatric: COMPLAINS OF: Confusion, Mood changes, Depression (Reyna Leong) Past Family Social History Allergies: Coded Allergies: Morphine (Verified Allergy, Unknown, 06/02/16) Past Medical History Anxiety Depression Pleurisy Gastroesophageal reflux disease Alcohol abuse Hepatitis C Past Surgical History Previous paracentesis Reported Medications Prilosec (Omeprazole Magnesium) 10 Mg Pow 10 Mg PO HS Active Ordered Medications Current Medications Medications (Trade) Dose Ordered Sig/[place] Route Start Time Stop Time Status Last Admin (NS Flush) 2 ml UNSCH PRN FLUSH 06/02/16 20:15 (NS Flush) 2 ml BID FLUSH 06/02/16 21:00 06/05/16 09:47 (Narcan Inj) 0.4 mg UNSCH PRN IV 06/02/16 20:15 Phytonadione 5 mg 5 mg DAILY PO 06/03/16 09:00 06/05/16 09:47 (Zosyn 4.5 Gm Premix) 100 ml @ 200 mls/hr Q6H IV 06/03/16 02:00 06/05/16 09:47 (Protonix Inj) 40 mg Q12H IV PUSH 06/03/16 04:00 06/05/16 02:46 Oxycodone HCl 5 mg 5 mg Q6H PRN PO 06/03/16 11:15 06/04/16 20:25 (NS + KCl 20 Meq Inj) 1,000 ml @ 42 mls/hr [id number] IV 06/03/16 15:00 06/04/16 03:37 (Lactulose Liq) 30 ml BID PO 06/04/16 21:00 06/05/16 09:47 (Xifaxan) 550 mg BID PO 06/04/16 21:00 06/05/16 09:47 (Albumin 25% Inj) 25 gm Q8HR IV 06/05/16 14:30 06/07/16 09:00 Family History No hx of renal impairment Social History Active smoker Long hx of heavy ETOH, unknown drug use lives with friend unemployed full code (Reyna Leong) Physical Exam Vital Signs Vital Signs Date Time Temp Pulse Resp B/P Pulse Ox O2 Delivery O2 Flow Rate FiO2 06/05/16 14:00 90 06/05/16 13:00 67 06/05/16 12:00 76 06/05/16 11:00 97.4 77 16 95/63 99 06/05/16 11:00 68 06/05/16 10:00 87 06/05/16 09:00 90 06/05/16 08:00 89 06/05/16 07:00 80 06/05/16 07:00 97.6 94 18 101/63 98 06/05/16 04:30 94.0 06/05/16 03:20 98 Room Air 06/05/16 00:27 98.1 65 18 122/83 96 06/05/16 00:23 98 Room Air 06/04/16 23:00 111 06/04/16 22:00 93 06/04/16 21:00 85 06/04/16 20:03 98.2 65 18 103/75 95 06/04/16 20:00 77 06/04/16 19:40 97 Room Air 06/04/16 19:00 76 06/04/16 18:00 70 06/04/16 17:00 65 06/04/16 16:00 64 Physical Exam Physical Examination HEENT:Normocephalic; atraumatic; + icterus CHEST: CTA, no wheezing CARDIAC: Regular rate and rhythm ; no murmur gallop or rubs. ABDOMEN: round, + ascites, it is Soft, nontender; hepatosplenomegaly; bowel sounds are present in all four quadrants. EXTREMITIES: No clubbing, cyanosis, or edema. SKIN: Normal; no rash; no jaundice. 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 ; agitated at times, sitter present at bedside Laboratory Laboratory Tests Test 06/04/16 06/05/16 20:17 04:53 Ammonia 38 White Blood Count 3.9 Red Blood Count 3.25 Hemoglobin 8.6 Hematocrit 25.4 Mean Corpuscular Volume 78.2 Mean Corpuscular Hemoglobin 26.6 Mean Corpuscular Hemoglobin 34.0 Concent Red Cell Distribution Width 19.9 Platelet Count 94 Mean Platelet Volume 10.4 Neutrophils (%) (Auto) 58.7 Lymphocytes (%) (Auto) 24.8 Monocytes (%) (Auto) 13.5 Eosinophils (%) (Auto) 2.3 Basophils (%) (Auto) 0.7 Neutrophils # (Auto) 2.3 Lymphocytes # (Auto) 1.0 Monocytes # (Auto) 0.5 Eosinophils # (Auto) 0.1 Basophils # (Auto) 0.0 CBC Comment AUTO DIFF Differential Comment AUTO DIFF CONFIRMED Platelet Estimate LOW Platelet Morphology Comment NORMAL Target Cells 1+ Prothrombin Time 16.7 Prothromb Time International 1.5 Ratio Sodium Level 146 Potassium Level 2.9 Chloride Level 114 Carbon Dioxide Level 21.5 Anion Gap 11 Blood Urea Nitrogen 17 Creatinine 0.97 Estimat Glomerular Filtration 82 Rate Random Glucose 98 Calcium Level 8.5 Magnesium Level 1.5 Total Bilirubin 1.9 Aspartate Amino Transf 18 (AST/SGOT) Alanine Aminotransferase 15 (ALT/SGPT) Alkaline Phosphatase 46 Total Protein 5.8 Albumin 2.6 Date/Time Procedure Status Source Growth 06/03/16 15:41 Gram Stain - Final Resulted Fluid Peritoneal Fluid 06/03/16 15:41 Body Fluid Culture - Preliminary Resulted Fluid Peritoneal Fluid NO GROWTH IN 48 HOURS. (Reyna Leong) Result Diagram: 06/05/16 0453 06/05/16 0453 Imaging Last 72 hours Impressions Brain MRI 06/04/16 0000 Signed Impressions: Service Date/Time: May 13:22 - CONCLUSION: Small focal hemorrhage identified in the region of the right cerebellum. Linear areas of increased T2 signal identified within the right and left cerebellar peduncle and within the left temporal lobe without corresponding hemorrhage or restricted diffusion. These may represent sequelae of trauma. Brunilda Polanco MD Head CT 06/03/16 0600 Signed Impressions: Service Date/Time: Friday, June 03, 2016 08:05 - CONCLUSION: Abnormal CT scan. MRI may be of benefit to confirm hemorrhage. Tyson Farias MD FACR Cyst Biopsy Asp-Paracentesis US 06/03/16 0000 Signed Impressions: Service Date/Time: Friday, June 03, 2016 15:12 - CONCLUSION: Uncomplicated ultrasound guided paracentesis. Anil Farias MD Chest X-Ray 06/03/16 0000 Signed Impressions: Service Date/Time: Friday, June 03, 2016 02:12 - CONCLUSION: No acute disease. No significant change has occurred. Kervin Garza MD Head CT 06/02/16 1726 Signed Impressions: Service Date/Time: Thursday, June 02, 2016 19:04 - CONCLUSION: 1. Questionable small intraparenchymal hematoma involving the right middle cerebellar peduncle. 2. Large right parietal soft tissue hematoma. Haider Reinoso Jr., MD (Reyna Leong) Assessment and Plan Problem List: (1) Oliguria Plan: in a patient with normal renal function his urine output dropped after the second paracentesis, 06/03, where 13 liters ( large volume) was removed at this time we have suspended the diuretics (Spironolactone) continue IVF, 0.9% with 20 mEq KCL at 42 cc/hr give a dose of Albumin if there is no response to crystalloids and colloids, then hepatorenal syndrome must be considered; this is a diagnosis of exclusion (2) Cirrhosis Plan: GI following continue supportive care (3) Hypokalemia Plan: replace as needed encourage nutrition (4) Hepatic encephalopathy Plan: monitor ammonia, lactulose as needed continue Xifaxan (5) Intracranial hemorrhage Plan: not a surgical candidate continue supportive measures given 2 FFP, vitamin K (6) Anemia Plan: due to liver disease given 2 units PRBC check iron profile transfuse prn, follow hemoglobin (Reyna Leong) Assessment and Plan patient was seen and examined. Consulted for oliguria. Underwent paracentesis with removal of 13 liters of ascitic fluid. Now on IVF. Add albumin. Suspend diuretics. Replace potassium. Monitor urine output and renal function. Avoid nephrotoxic agents. Prognosis is very poor. (Paul Owen MD) Problem Qualifiers (1) Cirrhosis: Qualified Code: K74.60 - Cirrhosis of liver with ascites, unspecified hepatic cirrhosis type (2) Anemia: Qualified Code: D64.9 - Anemia, unspecified type Reyna Leong Jun 05, 2016 15:37 Paul Owen MD Jun 05, 2016 19:16
[2016-06-05] MEDS: ALBUMIN HUMAN 25% 12.5 GM/50 ML BAGP IV SCH ×2 (17:55→20:43)
[2016-06-05] MEDS ORDERED: HALOPERIDOL LACTATE 5 MG/ML AMP IV PUSH ONE (20:30)
[2016-06-05] MEDS ORDERED: SPIRONOLACTONE 25 MG TAB PO SCH (21:00)
[2016-06-06] VITALS (24 sets, daily range): BP systolic 98–124; BP diastolic 65–83; PULSE 63–101; RESP 16–18; TEMP 97.1–98.1; O2SAT 97–99
[2016-06-06] MEDS: PIPERACIL-TAZO 4.5 GM PREMIX 100 ML IV SCH ×4 (05:35→21:33)
[2016-06-06] MEDS: PANTOPRAZOLE SODIUM 40 MG VIAL IV PUSH SCH ×2 (05:35→15:43)
[2016-06-06] MEDS: ALBUMIN HUMAN 25% 12.5 GM/50 ML BAGP IV SCH ×2 (05:36→13:20)
[2016-06-06 07:49] LABS: AUTOMATED NEUTROPHIL # 1.7 TH/MM3 (1.8-7.7); BASOPHIL % 1.2 % (0.0-2.0); EOSINOPHIL # 0.1 TH/MM3 (0-0.4); EOSINOPHIL % 3.6 % (0.0-4.0); HEMATOCRIT 27.9 % (39.0-51.0); HEMO FLAGS DIFF FINAL; MEAN CELL VOLUME 80.1 FL (80.0-100.0); MEAN CORPUSCULAR HEMOGLOBIN 26.1 PG (27.0-34.0); MEAN CORPUSCULAR HGB CONC 32.6 % (32.0-36.0); MONO % 14.4 % (0.0-8.0); NEUT % 49.8 % (16.0-70.0); PLATELET COUNT 102 TH/MM3 (150-450); RED BLOOD COUNT 3.48 MIL/MM3 (4.50-5.90); RED CELL DISTRIBUTION WIDTH 20.5 % (11.6-17.2); WHITE BLOOD COUNT 3.3 TH/MM3 (4.0-11.0)
[2016-06-06 08:13] LABS: ANION GAP 9 MEQ/L (5-15); BICARBONATE 22.8 MEQ/L (21.0-32.0); BLOOD UREA NITROGEN 13 MG/DL (7-18); CHLORIDE 111 MEQ/L (98-107); GLOMERULAR FILTRATION RATE 83 ML/MIN (>89); SODIUM (NA) 143 MEQ/L (136-145); TRANSFERRIN IRON PROFILE 143 MG/DL (200-360)
--- NOTE | 2016-06-06 08:14 | HHI.PR ---
Subjective Remarks Follow up liver failure, encephalopathy. The patient is lethargic, but does awaken and answers some questions. Remains confused. Has been agitated at times per nursing. Objective Vitals Vital Signs Date Time Temp Pulse Resp B/P Pulse Ox O2 Delivery O2 Flow Rate FiO2 06/06/16 07:12 18 06/06/16 05:00 70 06/06/16 04:33 98.1 75 16 99/65 97 06/06/16 04:00 73 06/06/16 03:00 75 06/06/16 02:00 90 06/06/16 01:00 87 06/06/16 00:00 84 06/05/16 23:00 91 06/05/16 23:00 98.3 85 16 98/64 99 06/05/16 22:00 90 06/05/16 21:00 89 06/05/16 20:00 98 06/05/16 19:49 98.3 84 16 102/68 98 06/05/16 19:00 93 06/05/16 18:00 91 06/05/16 17:00 99 06/05/16 16:00 90 06/05/16 15:00 87 06/05/16 15:00 97.2 91 18 103/69 99 06/05/16 14:00 90 06/05/16 13:00 67 06/05/16 12:00 76 06/05/16 11:00 97.4 77 16 95/63 99 06/05/16 11:00 68 06/05/16 10:00 87 06/05/16 09:00 90 I/O 06/05/16 06/05/16 06/05/16 06/06/16 06/06/16 06/06/16 07:00 15:00 23:00 07:00 15:00 23:00 Intake Total 1384 ml 1800 ml Output Total 100 ml 1300 ml Balance 1284 ml 500 ml Intake Oral 680 ml 1200 ml IV Total 704 ml 600 ml Output Urine Total 100 ml 300 ml Stool Total 1000 ml # Bowel Movements 0 1 Result Diagram: 06/06/16 0733 06/05/16 0453 Imaging Last Impressions Brain MRI 06/04/16 0000 Signed Impressions: Service Date/Time: May 13:22 - CONCLUSION: Small focal hemorrhage identified in the region of the right cerebellum. Linear areas of increased T2 signal identified within the right and left cerebellar peduncle and within the left temporal lobe without corresponding hemorrhage or restricted diffusion. These may represent sequelae of trauma. Brunilda Polanco MD Head CT 06/03/16 0600 Signed Impressions: Service Date/Time: Friday, June 03, 2016 08:05 - CONCLUSION: Abnormal CT scan. MRI may be of benefit to confirm hemorrhage. Tyson Farias MD FACR Cyst Biopsy Asp-Paracentesis US 06/03/16 0000 Signed Impressions: Service Date/Time: Friday, June 03, 2016 15:12 - CONCLUSION: Uncomplicated ultrasound guided paracentesis. Anil Farias MD Chest X-Ray 06/03/16 0000 Signed Impressions: Service Date/Time: Friday, June 03, 2016 02:12 - CONCLUSION: No acute disease. No significant change has occurred. Kervin Garza MD Cervical Spine CT 06/02/16 0000 Signed Impressions: Service Date/Time: Thursday, June 02, 2016 19:04 - CONCLUSION: 1. No fracture or dislocation. 2. Degenerative changes. 3. Calcified atherosclerotic plaque involving the carotid arteries bilaterally. Haider Reinoso Jr., MD Objective Remarks General: Chronically ill-appearing male in no acute distress. Heart: Regular rate and rhythm. No murmur. Lungs: Clear to auscultation bilaterally. No wheezes, rales, or rhonchi. Breathing is nonlabored. Abdomen: Soft, moderately distended. Extremities: No lower extremity edema. Psych: Alert, confused. Procedures 06/03/16 paracentesis Urinary Catheter: No Vascular Central Line Catheter: No A/P Problem List: (1) Intracranial hemorrhage ICD Code: I62.9 Status: Acute (2) Anemia ICD Code: D64.9 Status: Acute (3) Coagulopathy ICD Code: D68.9 Status: Acute (4) Cirrhosis ICD Code: K74.60 Status: Chronic (5) Hyperammonemia ICD Code: E72.20 Status: Acute (6) Hepatic encephalopathy ICD Code: K72.90 Status: Acute (7) Hypokalemia ICD Code: E87.6 Status: Acute Assessment and Plan 1. Encephalopathy: Secondary to liver disease versus intracranial hemorrhage. Ammonia level improved. 2. Intracranial hemorrhage: Appreciate neurosurgery recommendations. MRI report noted. 3. Coagulopathy: Patient received 2 units of FFP and 2 units PRBCs. Continue phytonadione. Monitor INR. 4. Ascites: Status post ultrasound-guided paracentesis with removal of 13 L fluid. Ascitic fluid analysis is not consistent with SBP. 5. DVT prophylaxis: SCDs, [place] uribee. Avoid chemical prophylaxis secondary to intracranial hemorrhage. 6. Hypokalemia: Labs are pending this morning. 7. Liver failure: Appreciate GI recommendations. Continue lactulose, Rifaximin. 8. Decreased urine output: Appreciate nephrology recommendations. Likely secondary to removal of large amount of fluid. Diuretics discontinued. Continue IV fluids, albumin. Problem Qualifiers (1) Anemia: Qualified Code: D64.9 - Anemia, unspecified type (2) Cirrhosis: Qualified Code: K74.60 - Cirrhosis of liver with ascites, unspecified hepatic cirrhosis type Sam Eubanks MD Jun 06, 2016 08:14
[2016-06-06] MEDS: SODIUM CHLORIDE 0.9% FLUSH 5 ML FLUSH FLUSH SCH ×2 (09:00→21:34)
--- NOTE | 2016-06-06 09:18 | HHI.NPPN ---
Subjective Interval History he is confused. All the notes were reviewed. 400 ml of urine output recorded. BUN and creatinine remain the same. Objective Data Data 06/05/16 06/06/16 19:00 07:00 Intake Total 3184 ml Output Total 1400 ml Balance 1784 ml Intake Oral 1880 ml IV Total 1304 ml Output Urine Total 400 ml Stool Total 1000 ml # Bowel Movements 1 Vital Signs Date Time Temp Pulse Resp B/P Pulse Ox O2 Delivery O2 Flow Rate FiO2 06/06/16 07:12 18 06/06/16 05:00 70 06/06/16 04:33 98.1 75 16 99/65 97 06/06/16 04:00 73 06/06/16 03:00 75 06/06/16 02:00 90 06/06/16 01:00 87 06/06/16 00:00 84 06/05/16 23:00 91 06/05/16 23:00 98.3 85 16 98/64 99 06/05/16 22:00 90 06/05/16 21:00 89 06/05/16 20:00 98 06/05/16 19:49 98.3 84 16 102/68 98 06/05/16 19:00 93 06/05/16 18:00 91 06/05/16 17:00 99 06/05/16 16:00 90 06/05/16 15:00 87 06/05/16 15:00 97.2 91 18 103/69 99 06/05/16 14:00 90 06/05/16 13:00 67 06/05/16 12:00 76 06/05/16 11:00 97.4 77 16 95/63 99 06/05/16 11:00 68 06/05/16 10:00 87 -: 06/06/16 0733 06/06/16 0733 Physical Exam General Appearance: Malnourished Throat Throat Exam: Oral Mucosa [place] & Moist Pulmonary Resp Exam: Clear Bilaterally Cardiology CV Exam: Regular Gastrointestinal/Abdomen GI Exam: Non-Distended Musculoskeletal MS Exam: Joints Intact Neurologic Neuro Exam: Moving All Extremities Neuro Remarks confusion Assessment/Plan Problem List: (1) Oliguria Plan: Has large stool output. He is malnourished. Likely not having much of solute intake. Low urine output may be a result of this situation, does not have requirement for large free water clearance due to poor solute intake. On the other hand, this could be beginning of Type 1 Hepatorenal syndrome. Appears to have reaccumulation of ascites. (2) Cirrhosis Plan: GI following continue supportive care (3) Hypokalemia Plan: replace as needed encourage nutrition. Hypokalemia is due to GI losses. (4) Hepatic encephalopathy Plan: monitor ammonia, lactulose as needed continue Xifaxan (5) Intracranial hemorrhage Plan: not a surgical candidate continue supportive measures given 2 FFP, vitamin K (6) Anemia Plan: due to liver disease given 2 units PRBC check iron profile transfuse prn, follow hemoglobin Plan I do not have much to offer in this situation. He should be sent to palliative care/hospice. He is not a candidate for renal replacement therapy. May resume diuretics. Taper off fluids. I will sign off. Problem Qualifiers (1) Cirrhosis: Qualified Code: K74.60 - Cirrhosis of liver with ascites, unspecified hepatic cirrhosis type (2) Anemia: Qualified Code: D64.9 - Anemia, unspecified type Paul Owen MD Jun 06, 2016 09:18
[2016-06-06] MEDS: PHYTONADIONE 5 MG TAB PO SCH (09:37)
[2016-06-06] MEDS: RIFAXIMIN 550 MG TAB PO SCH ×2 (09:37→21:35)
[2016-06-06] MEDS: LACTULOSE SYRUP 20 GM/30 ML CUP PO SCH ×2 (09:37→21:35)
[2016-06-06] MEDS: POTASSIUM CHLOR 20 MEQ PREMIX 100 ML IV SCH ×2 (09:37→09:41)
[2016-06-06] MEDS: NS + KCL 20 MEQ INJ 1,000 ML IV SCH (09:38)
[2016-06-06] MEDS ORDERED: POTASSIUM CHLOR 10 MEQ PREMIX 100 ML IV SCH (10:00)
--- NOTE | 2016-06-06 10:22 | RADRPT ---
EXAM DATE/TIME: 06/06/2016 09:06 [facility] COMPARISON: No previous studies available for comparison. INDICATIONS : Abdominal pain. MEDICAL HISTORY : Gastroesophageal reflux disease. Hypertension. Hepatitis C. Cirrhosis. SURGICAL HISTORY : Ultrasound guided paracentesis. ENCOUNTER: Initial ACUITY: 1 day PAIN SCORE: Nonresponsive. LOCATION: Bilateral Abdomen. MEASUREMENTS: LIVER: 15.9 cm length COMMON DUCT: Non-visualized RIGHT KIDNEY: 8.2 x 4.4 x 4.8 cm LEFT KIDNEY: 11.0 x 4.6 x 4.7 cm SPLEEN: 16.0 cm length AORTA: 2.6 cm maximal FINDINGS: LIVER: Liver is somewhat heterogeneous and lobular. No dilated biliary ducts are demonstrated. The portal sy stem is patent. There is moderate ascites. COMMON DUCT: No intraluminal mass or stone visualized. GALLBLADDER: There is some sludge in the gallbladder. No definite stones are seen. Gallbladder wall is thickened a t 6 mm. PANCREAS: Not visualized RIGHT KIDNEY: No hydronephrosis, stone or mass. LEFT KIDNEY: No hydronephrosis, stone or mass. SPLEEN: No focal lesion. Diffusely enlarged. AORTA: Non aneurysmal. IVC: Within normal limits. CONCLUSION: 1. There is a sludge in the gallbladder. There is some thickening of the gallbladder wall at 6 mm. Th is is suggestive of chronic gallbladder disease. No biliary tract obstruction is demonstrated. 2. Heterogeneous lobular liver characteristic for cirrhosis. 3. Moderate ascites. 4. Splenomegaly. Kervin Garza MD on June 06, 2016 at 10:18 Board Certified Radiologist. This report was verified electronically.
--- NOTE | 2016-06-06 11:32 | HHI.GIFU ---
GI Follow-up Note Consult Follow-up Subjective: Patient laying in bed, confused .Abdominal us noted-ascites, abnormal gb possible secondary ascites Objective: PHYSICAL EXAMINATION: Vitals signs stable No fever Vital Signs Date Time Temp Pulse Resp B/P Pulse Ox O2 Delivery O2 Flow Rate FiO2 06/06/16 10:00 93 06/06/16 09:00 71 06/06/16 08:45 97.1 73 18 124/83 99 06/06/16 08:45 73 06/06/16 07:12 18 06/06/16 05:00 70 06/06/16 04:33 98.1 75 16 99/65 97 06/06/16 04:00 73 HEENT: Pupils round and reactive to light; normocephalic; atraumatic; jaundice. Throat is clear. NECK: Neck is supple, no JVD, no lymphadenopathy. CHEST: Chest is clear to auscultation and percussion. CARDIAC: Regular rate and rhythm with no murmur gallop or rubs. ABDOMEN: Soft, distended, nontender; no hepatosplenomegaly; bowel sounds are present in all four quadrants. EXTREMITIES: No clubbing, cyanosis, or edema. SKIN: Normal; no rash; no jaundice. [employer]: No focal deficits; confused, awake Available Data (labs, X- Rays, Procedues) : ASSESSMENT/PLAN: liver cirrhosis most likely secondary etoh[hep c ab was positive but viral load d negative, he had postive hep b s ag in the past, hep b viral load minimal elevated ascites s/p paracentesis -no indication of sbp altered mental status, no indication of hepatic encephalopathy -continue Lactulose, Rifaximin Recommendations continue lactulose/rifaximin paracentesis prn diuretics/albumin consider neurology eval if no improvement in mental status iv antibiotics alfafetoprotein, hep b viral load and serology thiamine supplementation It was a pleasure seeing Sascha Valladares. Thank you for this consult. Entered by: Joan Arora MD Jun 06, 2016 11:32
[2016-06-06] MEDS ORDERED: HALOPERIDOL LACTATE 5 MG/ML AMP IV PUSH ONE (19:15)
[2016-06-07] VITALS (26 sets, daily range): BP systolic 89–108; BP diastolic 55–68; PULSE 64–98; RESP 16–20; TEMP 97.9–98.3; O2SAT 96–100
[2016-06-07] MEDS: PIPERACIL-TAZO 4.5 GM PREMIX 100 ML IV SCH ×4 (02:00→20:34)
[2016-06-07] MEDS: ALBUMIN HUMAN 25% 12.5 GM/50 ML BAGP IV SCH ×2 (02:00→05:13)
[2016-06-07] MEDS: PANTOPRAZOLE SODIUM 40 MG VIAL IV PUSH SCH ×2 (04:00→16:07)
--- NOTE | 2016-06-07 08:07 | HHI.PR ---
Subjective Remarks Follow up confusion, ascites. Patient has increasing abdominal distention. He is sleeping but awakens and says "I feel ok today". He then falls back to sleep. Objective Vitals Vital Signs Date Time Temp Pulse Resp B/P Pulse Ox O2 Delivery O2 Flow Rate FiO2 06/07/16 06:31 98.2 65 16 95/67 98 06/07/16 06:00 82 06/07/16 05:00 71 06/07/16 04:00 68 06/07/16 03:00 93 06/07/16 02:00 73 06/07/16 01:19 98.1 98 16 89/55 98 06/07/16 01:10 67 06/07/16 00:00 69 06/06/16 23:00 96 06/06/16 22:00 91 06/06/16 21:00 89 06/06/16 20:00 88 06/06/16 19:13 98.0 94 16 103/67 97 06/06/16 19:00 101 06/06/16 18:07 87 06/06/16 17:12 64 06/06/16 16:00 63 06/06/16 15:18 97.6 87 18 112/69 98 06/06/16 15:18 87 06/06/16 14:30 76 06/06/16 13:00 92 06/06/16 12:10 85 06/06/16 11:54 74 06/06/16 11:54 97.1 74 18 98/69 98 06/06/16 10:00 93 06/06/16 09:00 71 06/06/16 08:45 97.1 73 18 124/83 99 06/06/16 08:45 73 I/O 06/06/16 06/06/16 06/06/16 06/07/16 06/07/16 06/07/16 07:00 15:00 23:00 07:00 15:00 23:00 Intake Total 980 ml 830 ml Output Total 150 ml 300 ml Balance 830 ml 530 ml Intake Oral 480 ml 480 ml IV Total 500 ml 350 ml Output Urine Total 150 ml 300 ml # Bowel Movements 3 1 Result Diagram: 06/06/16 0733 06/06/16 0733 Imaging Last Impressions Abdomen Ultrasound 06/06/16 0000 Signed Impressions: Service Date/Time: Monday, June 06, 2016 09:06 - CONCLUSION: 1. There is a sludge in the gallbladder. There is some thickening of the gallbladder wall at 6 mm. This is suggestive of chronic gallbladder disease. No biliary tract obstruction is demonstrated. 2. Heterogeneous lobular liver characteristic for cirrhosis. 3. Moderate ascites. 4. Splenomegaly. Kervin Garza MD Brain MRI 06/04/16 0000 Signed Impressions: Service Date/Time: May 13:22 - CONCLUSION: Small focal hemorrhage identified in the region of the right cerebellum. Linear areas of increased T2 signal identified within the right and left cerebellar peduncle and within the left temporal lobe without corresponding hemorrhage or restricted diffusion. These may represent sequelae of trauma. Brunilda Polanco MD Head CT 06/03/16 0600 Signed Impressions: Service Date/Time: Friday, June 03, 2016 08:05 - CONCLUSION: Abnormal CT scan. MRI may be of benefit to confirm hemorrhage. Tyson Farias MD FACR Cyst Biopsy Asp-Paracentesis US 06/03/16 0000 Signed Impressions: Service Date/Time: Friday, June 03, 2016 15:12 - CONCLUSION: Uncomplicated ultrasound guided paracentesis. Anil Farias MD Chest X-Ray 06/03/16 0000 Signed Impressions: Service Date/Time: Friday, June 03, 2016 02:12 - CONCLUSION: No acute disease. No significant change has occurred. Kervin Gazra MD Cervical Spine CT 06/02/16 0000 Signed Impressions: Service Date/Time: Thursday, June 02, 2016 19:04 - CONCLUSION: 1. No fracture or dislocation. 2. Degenerative changes. 3. Calcified atherosclerotic plaque involving the carotid arteries bilaterally. Haider Reinoso Jr., MD Objective Remarks General: Chronically ill-appearing male in no acute distress. In soft wrist/ ankle restraints. Heart: Regular rate and rhythm. No murmur. Lungs: Clear to auscultation bilaterally. No wheezes, rales, or rhonchi. Breathing is nonlabored. Abdomen: Soft, distended. Extremities: Trace bilateral lower extremity edema. Psych: Sleeping, but awakens to verbal stimuli. Confused. Procedures 06/03/16 paracentesis Urinary Catheter: Yes Assessment to: Continue Danielle insert reason: Measure Accurate Output Vascular Central Line Catheter: No A/P Problem List: (1) Intracranial hemorrhage ICD Code: I62.9 Status: Acute (2) Anemia ICD Code: D64.9 Status: Acute (3) Coagulopathy ICD Code: D68.9 Status: Acute (4) Cirrhosis ICD Code: K74.60 Status: Chronic (5) Hyperammonemia ICD Code: E72.20 Status: Acute (6) Hepatic encephalopathy ICD Code: K72.90 Status: Acute (7) Hypokalemia ICD Code: E87.6 Status: Acute Assessment and Plan 1. Encephalopathy: Secondary to liver disease versus intracranial hemorrhage. Ammonia level improved. 2. Intracranial hemorrhage: Appreciate neurosurgery recommendations. MRI report noted. 3. Coagulopathy: Patient received 2 units of FFP and 2 units PRBCs. Continue phytonadione. Monitor INR. 4. Ascites: Status post ultrasound-guided paracentesis with removal of 13 L fluid. Ascitic fluid analysis is not consistent with SBP. 5. DVT prophylaxis: SCDs, [place] hose. Avoid chemical prophylaxis secondary to intracranial hemorrhage. 6. Hypokalemia: Continue supplementation. Labs are pending this morning. 7. Liver failure: Appreciate GI recommendations. Continue lactulose, Rifaximin. 8. Decreased urine output: Appreciate nephrology recommendations. Likely secondary to removal of large amount of fluid. Diuretics discontinued. Continue IV fluids, albumin. 9. Poor prognosis: Will consult palliative care tomorrow to assist with clarification of goals of care. Problem Qualifiers (1) Anemia: Qualified Code: D64.9 - Anemia, unspecified type (2) Cirrhosis: Qualified Code: K74.60 - Cirrhosis of liver with ascites, unspecified hepatic cirrhosis type Sam Eubanks MD Jun 07, 2016 08:07
[2016-06-07] MEDS: SODIUM CHLORIDE 0.9% FLUSH 5 ML FLUSH FLUSH SCH ×2 (08:49→20:35)
[2016-06-07] MEDS: THIAMINE INJ 100 MG in SODIUM CHLORIDE 0.9% INJ 100 ML IV SCH (08:49)
[2016-06-07] MEDS: RIFAXIMIN 550 MG TAB PO SCH ×2 (08:49→20:32)
[2016-06-07] MEDS: FOLIC ACID 1 MG TAB PO SCH (08:49)
[2016-06-07] MEDS: LACTULOSE SYRUP 20 GM/30 ML CUP PO SCH ×2 (08:50→20:33)
[2016-06-07] MEDS: PHYTONADIONE 5 MG TAB PO SCH (08:50)
[2016-06-07] MEDS: NS + KCL 20 MEQ INJ 1,000 ML IV SCH (13:18)
[2016-06-08] VITALS (25 sets, daily range): BP systolic 99–118; BP diastolic 58–85; PULSE 58–95; RESP 18–20; TEMP 97–98.3; O2SAT 94–100
[2016-06-08] MEDS: PIPERACIL-TAZO 4.5 GM PREMIX 100 ML IV SCH ×4 (01:45→21:16)
[2016-06-08] MEDS: PANTOPRAZOLE SODIUM 40 MG VIAL IV PUSH SCH ×2 (03:44→17:01)
--- NOTE | 2016-06-08 08:19 | HHI.PR ---
Subjective Remarks Follow-up confusion, liver failure, ascites, hypokalemia. Patient is more alert today. States that he is hungry and thirsty. Also reports abdominal pain on the right side. Objective Vitals Vital Signs Date Time Temp Pulse Resp B/P Pulse Ox O2 Delivery O2 Flow Rate FiO2 06/08/16 06:00 71 06/08/16 05:00 66 06/08/16 04:00 98.3 73 20 99/66 100 06/08/16 03:30 67 06/08/16 03:00 58 06/08/16 02:00 71 06/08/16 01:00 65 06/08/16 00:00 98.2 18 101/58 100 06/08/16 00:00 68 06/07/16 23:30 76 06/07/16 23:00 76 06/07/16 22:00 64 06/07/16 21:00 78 06/07/16 20:00 98.3 84 18 100/68 96 06/07/16 20:00 84 06/07/16 19:30 88 06/07/16 18:01 84 06/07/16 17:26 83 06/07/16 16:22 79 06/07/16 15:38 98.0 79 18 108/60 98 06/07/16 15:38 79 06/07/16 14:01 77 06/07/16 13:00 88 06/07/16 12:04 88 06/07/16 11:55 98.2 87 20 102/68 100 06/07/16 11:55 87 06/07/16 10:00 83 06/07/16 09:00 77 06/07/16 08:45 97.9 77 20 101/66 98 06/07/16 08:45 77 I/O 06/07/16 06/07/16 06/07/16 06/08/16 06/08/16 06/08/16 07:00 15:00 23:00 07:00 15:00 23:00 Intake Total 830 ml 540 ml 120 ml Output Total 300 ml 150 ml 325 ml Balance 530 ml 390 ml -205 ml Intake Oral 480 ml 240 ml 120 ml IV Total 350 ml 300 ml Output Urine Total 300 ml 150 ml 325 ml # Bowel Movements 1 1 1 Result Diagram: 06/06/1673206/06/16732 Imaging Last Impressions Abdomen Ultrasound 06/06/16 0000 Signed Impressions: Service Date/Time: Monday, June 06, 2016 09:06 - CONCLUSION: 1. There is a sludge in the gallbladder. There is some thickening of the gallbladder wall at 6 mm. This is suggestive of chronic gallbladder disease. No biliary tract obstruction is demonstrated. 2. Heterogeneous lobular liver characteristic for cirrhosis. 3. Moderate ascites. 4. Splenomegaly. Kervin Garza MD Brain MRI 06/04/16 0000 Signed Impressions: Service Date/Time: May 13:22 - CONCLUSION: Small focal hemorrhage identified in the region of the right cerebellum. Linear areas of increased T2 signal identified within the right and left cerebellar peduncle and within the left temporal lobe without corresponding hemorrhage or restricted diffusion. These may represent sequelae of trauma. Brunilda Polanco MD Head CT 06/03/16 0600 Signed Impressions: Service Date/Time: Friday, June 03, 2016 08:05 - CONCLUSION: Abnormal CT scan. MRI may be of benefit to confirm hemorrhage. Tyson Farias MD FACR Cyst Biopsy Asp-Paracentesis US 06/03/16 0000 Signed Impressions: Service Date/Time: Friday, June 03, 2016 15:12 - CONCLUSION: Uncomplicated ultrasound guided paracentesis. Anil Farias MD Chest X-Ray 06/03/16 0000 Signed Impressions: Service Date/Time: Friday, June 03, 2016 02:12 - CONCLUSION: No acute disease. No significant change has occurred. Kervin Garza MD Cervical Spine CT 06/02/16 0000 Signed Impressions: Service Date/Time: Thursday, June 02, 2016 19:04 - CONCLUSION: 1. No fracture or dislocation. 2. Degenerative changes. 3. Calcified atherosclerotic plaque involving the carotid arteries bilaterally. Haider Reinoso Jr., MD Objective Remarks General: Chronically ill-appearing male in no acute distress. In soft wrist/ ankle restraints. Heart: Regular rate and rhythm. No murmur. Lungs: Clear to auscultation bilaterally. No wheezes, rales, or rhonchi. Breathing is nonlabored. Abdomen: Soft, distended. Extremities: Trace bilateral lower extremity edema. Psych: Awake, alert, answers questions appropriately. Still displays confusion. Procedures 06/03/16 paracentesis Urinary Catheter: Yes Assessment to: Continue Danielle insert reason: Measure Accurate Output Vascular Central Line Catheter: No A/P Problem List: (1) Intracranial hemorrhage ICD Code: I62.9 Status: Acute (2) Anemia ICD Code: D64.9 Status: Acute (3) Coagulopathy ICD Code: D68.9 Status: Acute (4) Cirrhosis ICD Code: K74.60 Status: Chronic (5) Hyperammonemia ICD Code: E72.20 Status: Acute (6) Hepatic encephalopathy ICD Code: K72.90 Status: Acute (7) Hypokalemia ICD Code: E87.6 Status: Acute Assessment and Plan 1. Encephalopathy: Secondary to liver disease versus intracranial hemorrhage. Ammonia level improved. Patient's mental status has improved somewhat today. 2. Intracranial hemorrhage: Appreciate neurosurgery recommendations. MRI report noted. 3. Coagulopathy: Patient received 2 units of FFP and 2 units PRBCs. Continue phytonadione. Monitor INR. 4. Ascites: Status post ultrasound-guided paracentesis with removal of 13 L fluid. Ascitic fluid analysis is not consistent with SBP. Fluid has reaccumulated. Patient will likely need repeat paracentesis soon. 5. DVT prophylaxis: SCDs, [place] hose. Avoid chemical prophylaxis secondary to intracranial hemorrhage. 6. Hypokalemia: Continue supplementation. Labs are pending this morning. 7. Liver failure: Appreciate GI recommendations. Continue lactulose, Rifaximin. 8. Decreased urine output: Appreciate nephrology recommendations. Likely secondary to removal of large amount of fluid. Diuretics discontinued. Continue IV fluids, albumin. 9. Poor prognosis: Will consult palliative care to assist with clarification of goals of care. Problem Qualifiers (1) Anemia: Qualified Code: D64.9 - Anemia, unspecified type (2) Cirrhosis: Qualified Code: K74.60 - Cirrhosis of liver with ascites, unspecified hepatic cirrhosis type Sam Eubanks MD Jun 08, 2016 08:19
[2016-06-08] MEDS: RIFAXIMIN 550 MG TAB PO SCH ×2 (09:34→21:17)
[2016-06-08] MEDS: LACTULOSE SYRUP 20 GM/30 ML CUP PO SCH ×2 (09:34→21:17)
[2016-06-08] MEDS: FOLIC ACID 1 MG TAB PO SCH (09:34)
[2016-06-08] MEDS: THIAMINE INJ 100 MG in SODIUM CHLORIDE 0.9% INJ 100 ML IV SCH (09:34)
[2016-06-08] MEDS: SODIUM CHLORIDE 0.9% FLUSH 5 ML FLUSH FLUSH SCH ×2 (09:35→21:00)
[2016-06-08] MEDS: PHYTONADIONE 5 MG TAB PO SCH (09:35)
--- NOTE | 2016-06-08 10:33 | PD.CONS ---
Consult Service Palliative Care . Consult Requested By Dr. Eubanks . Primary Care Physician No Primary Care Physician . Reason for Consultation a. To assist with evaluation and management of symptoms including: pain, ascites, confusion, oliguria b. To assist medical decision maker(s) with: better understanding of current medical conditions; weighing benefits/burdens of medical treatment options; making medical treatment decisions. . HPI History of Present Illness Mr. Valladares is a 50 year old male who presented to [facility] via EMS on 06/02/16 for evaluation of altered mental status after a fall. Patient reported he was walking down some stairs when he tripped and fell approximately 1 foot to the pavement below. He denied LOC. Patient reported chronic EtOH consumption daily. Patient reported generalized back pain described as aching and rated 7 out of 10, nonradiating. A contusion was noted on the back of his head. He reported being on the ground for approximately 1 hour, and cannot explain why he was unable to get up after the fall either from pain or weakness. He was recently hospitalized for approximately a week in April, with hepatic encephalopathy, rhabdomyolysis, and elevated troponin. During that admission, he was noted to have ascites and underwent a paracentesis on 05/07 with 10L of fluid removed. He was discharged home on 05/09/16 with levaquin, spironolactone, lactulose, pantoprazole, and rifaximin. Diagnostic findings all in the ED include: Vital signs: Pulse 95, respirations 16, BP 125/64, oxygen saturation 100% on room air, temperature 98.9 WBC: 4.9, hemoglobin 7.9, hematocrit 25.2, platelets 122, neutrophils 63.9% Sodium: And 40, potassium 3.5, chloride 106, carbon dioxide 21.9, glucose 100 , calcium 9.1 BUN: 21, creatinine 1.13, GFR 69 Lactic acid: 2.2 The total bilirubin: 2.4, AST 36, ALT 20, alkaline phosphatase 61 Ammonia: 35 Total creatine kinase: 109 Total protein: 7.8, albumin 2.9 PT: 18.3, INR 1.6, APTT 29.1 EtOH: <3 Urinalysis normalculture not indicated CT cervical spine: Showed degenerative changes and calcified arteriosclerotic plaque involving the carotid arteries bilaterally. Head CT: Questionable small intraparenchymal hematoma involving the right middle cerebellar peduncle. Large right parietal soft tissue hematoma. Past medical history includes anxiety/depression, pleurisy, GERD, polysubstance abuse, hepatitis C, liver cirrhosis, ascites and esophagitis/duodenal ulcers. Head CT showed questionable small intraparenchymal hematoma involving the right middle cerebellar peduncle. Large right parietal soft tissue hematoma. Cervical spine CT showed degenerative changes and bilateral calcified atherosclerotic plaque of the carotid arteries but no acute fractures or dislocations. Neurosurgery evaluated this patient in the ER. Encephalopathy secondary to liver disease versus intracranial hemorrhage. Ammonia level elevated at 35. ==Follow-up CT head on 06/03/16 showed a small focal area of high attenuation in the right cerebellar peduncle, probably a hemorrhage given its evolving appearance. ==MRI brain on 06/04/16 showed small focal hemorrhage identified in the region of the right cerebellum linear areas of increased T2 signal identified with the right and left cerebral peduncle and within the left temporal lobe without corresponding hemorrhage or restricted diffusion. These may represent sequelae of trauma. GI has been consulted for liver disease and ascites. He was noted to have abdominal ascites. He underwent an ultrasound guided paracentesis (06/03/16) with13,000ml clear, yellow fluid removed. Peritoneal fluid culture negative. Past medical history includes liver cirrhosis with coagulopathy, currently receiving Vitamin K. Recent CT scan abdomen and pelvis without IV contrast on showed a small shrunken liver consistent with advanced cirrhosis, normal size spleen, tense ascites evidence, varicosities are suspected. Recent EGD/ colonoscopy on 11/20/15: Showed severe gastritis, gastropathy, duodenal ulcers, esophagitis with irregular z line, normal appearing colonic mucosa - pathology revealed gastral antral mucosal biopsy with foveolar hyperplasia, telangiectasia and vascular congestion negative for gastritis, gastropathy, metaplasia, and dysplasia, Dawna stain negative for Helicobacter. Placed on IV antibiotics secondary to possible SBP. Patient has a history of liver cirrhosis secondary to HCV and EtOH, with coagulopathy receiving vitamin K. 06/03/16: H/H to 6.9/21.2 Transfused with 2 units FFP and 2 units PRBCs. He underwent a ultrasound-guided paracenteses on 06/03/16 with 13,000 ml, yellow fluid removed. Peritoneal fluid culture negative. Nephrology was consulted on 06/05/16 to manage patient severe hypokalemia requiring IV replacement, low urine output. Potassium 2.9, BUN 17, creatinine 0.97, GFR 82 Abdominal ultrasound on 06/06/16 - 1. There is a sludge in the gallbladder. There is some thickening of the gallbladder wall at 6 mm. This is suggestive of chronic gallbladder disease. No biliary tract obstruction is demonstrated. 2. Heterogeneous lobular liver characteristic for cirrhosis. 3. Moderate ascites. 4. Splenomegaly. Palliative Care was consulted to assist with symptom management and to discuss with the patient/family the benefits and burdens of his current illnesses and the options regarding future care. On examination,patient's speech is largely nonsensical. Patient is confused. He is asking me to get the scissors to cut the soft restraints stating he is "getting ready to punch his in the face" . He then laughs and states, "It was a fun game being tied up, but the kids are getting a little carried away and I think its time to stop. I won't get mad. We can start a another game tomorrow." Patient was unable to provide me with any medical history and/or contact information of family and friends. . Function/Cognitive Trajectory Patient remains confused, poor historian. . Review of Systems ROS Limitations: Altered Mental Status, Uncooperative Constitutional: COMPLAINS OF: Fatigue, Change in appetite, Generalized weakness Ears, nose, mouth, throat: DENIES: Running Nose Respiratory: DENIES: Hemoptysis Cardiovascular: COMPLAINS OF: Lower Extremity Edema (Trace edema) Gastrointestinal: COMPLAINS OF: Abdominal pain, Vomiting Musculoskeletal: COMPLAINS OF: Back pain Hematologic/Lymphatics: COMPLAINS OF: History of transfusions Neurologic: COMPLAINS OF: Poor Balance Psychiatric: COMPLAINS OF: Confusion, Mood changes, Hallucinations Past Family Social History Coded Allergies: Morphine (Verified Allergy, Unknown, 06/02/16) Past Medical History Anxiety Depression Pleurisy Gastroesophageal reflux disease Alcohol abuse Hepatitis C Liver cirrhosis Ascites Esophagitis, duodenal ulcers . Past Surgical History EGD Reported Medications Prilosec (Omeprazole Magnesium) 10 Mg Pow 10 Mg PO HS . Current Medications Medications (Trade) Dose Ordered Sig/Herm[place] Route Start Time Stop Time Status Last Admin (NS Flush) 2 ml UNSCH PRN FLUSH 06/02/16 20:15 (NS Flush) 2 ml BID FLUSH 06/02/16 21:00 06/08/16 09:35 (Narcan Inj) 0.4 mg UNSCH PRN IV 06/02/16 20:15 Phytonadione 5 mg 5 mg DAILY PO 06/03/16 09:00 06/08/16 09:35 (Zosyn 4.5 Gm Premix) 100 ml @ 200 mls/hr Q6H IV 06/03/16 02:00 06/08/16 09:35 (Protonix Inj) 40 mg Q12H IV PUSH 06/03/16 04:00 06/08/16 03:44 Oxycodone HCl 5 mg 5 mg Q6H PRN PO 06/03/16 11:15 06/07/16 20:33 (NS + KCl 20 Meq Inj) 1,000 ml @ 42 mls/hr [id number] IV 06/03/16 15:00 06/07/16 13:18 (Lactulose Liq) 30 ml BID PO 06/04/16 21:00 06/08/16 09:34 Rifaximin 550 mg 550 mg BID PO 06/04/16 21:00 06/08/16 09:34 (Thiamine Inj/NS Inj) 101 ml @ 101 mls/hr DAILY IV 06/07/16 09:00 06/08/16 09:34 (Folate) 1 mg DAILY PO 06/07/16 09:00 06/08/16 09:34 . Family History The patient has son who from liver disease . Substance Use Tobacco: Smokes 1 pack of cigarettes per day Alcohol: History of ETOH abuse, reports that her drinks on shot of vodka per day. Prescription med abuse: benzodiazepines Illicits: Admits to marijuana use but denies any use of amphetamines although he was positive for this. . Psychosocial History Per review of previous notes: Patient reports that he lives with his girlfriend but it is worth noting that he cannot remember his girlfriend's name or number. He has a 12th grade education. He says he has 2 children from her previous relationship. 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 He denies a history of legal problems. Denies any access to guns or firearms. Spiritual/Cultural Factors Unknown . Ethical and Legal Issues No family/friends known. Tyesha Louallisonterrie phone number has bee disconnected. . Physical Exam Vital Signs Date Time Temp Pulse Resp B/P Pulse Ox O2 Delivery O2 Flow Rate FiO2 06/08/16 06:00 71 06/08/16 05:00 66 06/08/16 04:00 98.3 73 20 99/66 100 06/08/16 03:30 67 06/08/16 03:00 58 06/08/16 02:00 71 06/08/16 01:00 65 06/08/16 00:00 98.2 18 101/58 100 06/08/16 00:00 68 06/07/16 23:30 76 06/07/16 23:00 76 06/07/16 22:00 64 06/07/16 21:00 78 06/07/16 20:00 98.3 84 18 100/68 96 06/07/16 20:00 84 06/07/16 19:30 88 06/07/16 18:01 84 06/07/16 17:26 83 06/07/16 16:22 79 06/07/16 15:38 98.0 79 18 108/60 98 06/07/16 15:38 79 06/07/16 14:01 77 06/07/16 13:00 88 06/07/16 12:04 88 06/07/16 11:55 98.2 87 20 102/68 100 06/07/16 11:55 87 . 06/07/16 06/08/16 19:00 07:00 Intake Total 540 ml 120 ml Output Total 150 ml 325 ml Balance 390 ml -205 ml Intake Oral 240 ml 120 ml IV Total 300 ml Output Urine Total 150 ml 325 ml # Bowel Movements 1 1 . Exam CONSTITUTIONAL/GENERAL: This is a malnourished, middle aged male patient, in no apparent distress. TUBES/LINES/DRAINS: soft restraints x 4, cotto catheter, PIV x 1 SKIN: Ecchymoses on upper extremities. No wounds seen anteriorly. Skin temperature appropriate. Not diaphoretic. HEAD: Atraumatic. Normocephalic. EYES: Pupils equal and round and reactive. Extraocular motions intact. No injection or drainage. Fundi not examined. ENT: Hearing grossly normal. Nose without bleeding or purulent drainage. NECK: Trachea midline. Supple, nontender. No palpable thyroid enlargement or nodularity. CARDIOVASCULAR: Regular rate and rhythm without murmurs, gallops, or rubs. No JVD. Peripheral pulses symmetric. RESPIRATORY/CHEST: Symmetric, unlabored respirations. Clear to auscultation. Breath sounds equal bilaterally. No wheezes, rales, or rhonchi. GASTROINTESTINAL: Abdomen soft, distended. Bowel sounds present. GENITOURINARY: Without palpable bladder distension. Cotto catheter in place. MUSCULOSKELETAL: Extremities without clubbing, cyanosis. Trace edema in BLE LYMPHATICS: No palpable cervical or supraclavicular adenopathy. NEUROLOGICAL: Awake. Confused. Non-sensical speech. PSYCHIATRIC: Hallucinations - seeing people who are not in the room, requesting scissors, threatening to "punch "?. . Diagnostic Tests Laboratory Laboratory Tests Test 06/06/16 06/06/16 07:33 13:45 White Blood Count 3.3 TH/MM3 (4.0-11.0) Red Blood Count 3.48 MIL/MM3 (4.50-5.90) Hemoglobin 9.1 GM/DL (13.0-17.0) Hematocrit 27.9 % (39.0-51.0) Mean Corpuscular Volume 80.1 FL (80.0-100.0) Mean Corpuscular Hemoglobin 26.1 PG (27.0-34.0) Mean Corpuscular Hemoglobin 32.6 % Concent (32.0-36.0) Red Cell Distribution Width 20.5 % (11.6-17.2) Platelet Count 102 TH/MM3 (150-450) Mean Platelet Volume 10.3 FL (7.0-11.0) Neutrophils (%) (Auto) 49.8 % (16.0-70.0) Lymphocytes (%) (Auto) 31.0 % (9.0-44.0) Monocytes (%) (Auto) 14.4 % (0.0-8.0) Eosinophils (%) (Auto) 3.6 % (0.0-4.0) Basophils (%) (Auto) 1.2 % (0.0-2.0) Neutrophils # (Auto) 1.7 TH/MM3 (1.8-7.7) Lymphocytes # (Auto) 1.0 TH/MM3 (1.0-4.8) Monocytes # (Auto) 0.5 TH/MM3 (0-0.9) Eosinophils # (Auto) 0.1 TH/MM3 (0-0.4) Basophils # (Auto) 0.0 TH/MM3 (0-0.2) CBC Comment DIFF FINAL Differential Comment Sodium Level 143 MEQ/L (136-145) Potassium Level 3.0 MEQ/L (3.5-5.1) Chloride Level 111 MEQ/L (98-107) Carbon Dioxide Level 22.8 MEQ/L (21.0-32.0) Anion Gap 9 MEQ/L (5-15) Blood Urea Nitrogen 13 MG/DL (7-18) Creatinine 0.96 MG/DL (0.60-1.30) Estimat Glomerular Filtration 83 ML/MIN (>89) Rate Random Glucose 92 MG/DL (74-106) Calcium Level 8.3 MG/DL (8.5-10.1) Iron Level 31 MCG/DL (65-175) Total Iron Binding Capacity 200 MCG/DL (250-450) Percent Iron Saturation 15.5 % (20-50) Ammonia LESS THAN 10 MCMOL/L (11-32) Tumor Marker Alpha Fetoprotein 2.8 NG/ML (0.5-8.0) Vitamin B12 Level 1195 PG/ML (193-986) Folate 4.0 NG/ML (3.1-17.5) . Result Diagram: 06/06/16 0733 06/06/16 0733 Imaging Last 72 hours Impressions Abdomen Ultrasound 06/06/16 0000 Signed Impressions: Service Date/Time: Monday, June 06, 2016 09:06 - CONCLUSION: 1. There is a sludge in the gallbladder. There is some thickening of the gallbladder wall at 6 mm. This is suggestive of chronic gallbladder disease. No biliary tract obstruction is demonstrated. 2. Heterogeneous lobular liver characteristic for cirrhosis. 3. Moderate ascites. 4. Splenomegaly. Kervin Garza MD . Procedures 06/03/16: Paracentesis . Patient/Family Conference Present at Family Conference: NO family/friends present, no contact information available. . Issues Discussed: Assessment and Plan Disease Oriented Problem List: (1) Hallucination (2) Acute kidney injury (3) Thrombocytopenia (4) Tobacco abuse (5) Alcohol withdrawal (6) Abdominal pain (7) Uncontrolled hypertension (8) Normochromic normocytic anemia (9) GERD (gastroesophageal reflux disease) (10) Ascites of liver (11) Cerebral contusion (12) Encephalopathy chronic (13) Anemia (14) Coagulopathy (15) Intracranial hemorrhage (16) Hepatic encephalopathy (17) Hypokalemia (18) Cirrhosis (19) Hyperammonemia (20) Oliguria Symptom Scale: (1) Oliguria (2) Pain (3) Confusion (4) Ascites Comment: He underwent a ultrasound-guided paracenteses on 06/03/16 with 13,000 ml, yellow fluid removed. Peritoneal fluid culture negative. Ascitic fluid analysis is not consistent with SBP. Fluid has reaccumulated. Patient will likely need repeat paracentesis soon. Pertinent Non-Medical Issues Psychosocial: Per review of previous notes: Patient reports that he lives with his girlfriend but it is worth noting that he cannot remember his girlfriend's name or number. He has a 12th grade education. He says he has 2 children from her previous relationship. 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 He denies a history of legal problems. Denies any access to guns or firearms. Spiritual: Per review of previous notes: Patient reports that he lives with his girlfriend but it is worth noting that he cannot remember his girlfriend's name or number. He has a 12th grade education. He says he has 2 children from her previous relationship. 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 He denies a history of legal problems. Denies any access to guns or firearms. Legal: Pending identification of legal medical decision maker. Ethical issues impacting care: Case management consult placed requesting [employer] reports . Important Contacts Tyesha Palomares, friend: [phone]-PHONE NUMBER DISCONNECTED . Prognosis Patient is a cachectic 50 year old who has been hospitalized 5 times since November. 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 Currently admitted with status post fall, encephalopathic secondary to liver disease versus intracranial hemorrhage. Coagulopathy. Ascites. Status post ultrasound-guided paracentesis with removal of 13 L fluid. Nephrology now consulted for hypokalemia and decreased urine output. Prognosis poor-patient is appropriate for hospice. . Code Status: Full Code Plan * FULL CODE * Decision-making: Legal health care proxy is unknown at this time-[facility] report pending. * No family/friends known. Tyesha Jelani phone number has been disconnected. * Goals: Aggressive goals-pending identification of legal medical decision- making. * Discussed with nurse, Mounika and Dr. Eubanks * Case management consult placed requesting accurate report. Possible son ( Sascha Valladares) . Possible ex-, Marysol Lynch (spouse Michael) from [place] or [place]. * Emailed Ally Whitmore to [facility] on [facility] report request. * Symptom managementascites: He underwent a ultrasound-guided paracenteses on with 13,000 ml, yellow fluid removed. Peritoneal fluid culture negative. Abdominal ultrasound on 06/06/16 - 1. There is a sludge in the gallbladder. There is some thickening of the gallbladder wall at 6 mm. This is suggestive of chronic gallbladder disease. No biliary tract obstruction is demonstrated. 2. Heterogeneous lobular liver characteristic for cirrhosis. 3. Moderate ascites. 4. Splenomegaly. * Palliative care will continue to follow this patient throughout his hospitalization to establish trust, assist with symptom management and clarification of medical treatment goals. Thank you for the opportunity to participate in the care of Mr. Valladares. . Attestation To help prompt me to consider important information that might be impacting today's encounter and assessment, information from prior notes written by myself or my colleagues may have been "brought forward" into today's note. My signature on this note, however, is an attestation that I personally performed the exam, history, and/or decision-making noted today, and, unless otherwise indicated, the interactions with patient, family, and staff as well as the review of records all occurred today. I also attest that the listed assessment and stated plan reflect my best clinical judgment today based on the combination of historical information, prior notes, and today's exam/ interactions. When time spent is documented, it refers only to time spent today by the signer, or if indicated, combined time spent today by collaborating physician/nurse practitioner. . Jayne Lopez Jun 08, 2016 10:33
[2016-06-08 11:26] LABS: AUTOMATED NEUTROPHIL # 2.5 TH/MM3 (1.8-7.7); BASOPHIL # 0.1 TH/MM3 (0-0.2); BASOPHIL % 1.8 % (0.0-2.0); EOSINOPHIL # 0.1 TH/MM3 (0-0.4); EOSINOPHIL % 2.2 % (0.0-4.0); HEMATOCRIT 33.2 % (39.0-51.0); LYMPH % 20.5 % (9.0-44.0); LYMPHOCYTE # 0.9 TH/MM3 (1.0-4.8); MEAN CELL VOLUME 81.5 FL (80.0-100.0); MEAN CORPUSCULAR HEMOGLOBIN 26.6 PG (27.0-34.0); MEAN CORPUSCULAR HGB CONC 32.6 % (32.0-36.0); MONO % 15.7 % (0.0-8.0); NEUT % 59.8 % (16.0-70.0); PLATELET COUNT 90 TH/MM3 (150-450); RED BLOOD COUNT 4.08 MIL/MM3 (4.50-5.90); RED CELL DISTRIBUTION WIDTH 21.1 % (11.6-17.2); WHITE BLOOD COUNT 4.2 TH/MM3 (4.0-11.0)
[2016-06-08 11:34] LABS: HEMO FLAGS AUTO DIFF
[2016-06-08 11:47] LABS: ALKALINE PHOSPHATASE 59 U/L (45-117); ALT (GPT) 20 U/L (12-78); ANION GAP 10 MEQ/L (5-15); AST (GOT) 40 U/L (15-37); BICARBONATE 19.8 MEQ/L (21.0-32.0); BLOOD UREA NITROGEN 15 MG/DL (7-18); CHLORIDE 110 MEQ/L (98-107); GLOMERULAR FILTRATION RATE 86 ML/MIN (>89); POTASSIUM 3.4 MEQ/L (3.5-5.1); SODIUM (NA) 140 MEQ/L (136-145); TOTAL BILIRUBIN ADULT 2.1 MG/DL (0.2-1.0)
[2016-06-08 12:18] LABS: HEPATITIS B SURFACE ANTIBODY 0.6 mIU/mL
[2016-06-08 12:51] LABS: KERATOCYTES OCC (NORMAL)
[2016-06-08 12:52] LABS: PLATELET ESTIMATE SMEAR LOW (NORMAL); PLATELET MORPHOLOGY NORMAL (NORMAL); SCAN/DIFF AUTO DIFF CONFIRMED
[2016-06-08] MEDS: NS + KCL 20 MEQ INJ 1,000 ML IV SCH (13:11)
[2016-06-08] MEDS ORDERED: POTASSIUM CHLOR 20 MEQ PREMIX 100 ML IV ONE (14:15)
[2016-06-08] MEDS ORDERED: HALOPERIDOL LACTATE 5 MG/ML AMP IV PUSH ONE (18:00)
[2016-06-09] VITALS (17 sets, daily range): BP systolic 101–126; BP diastolic 66–83; PULSE 72–101; RESP 18–19; TEMP 97–98; O2SAT 94–99
[2016-06-09] MEDS: PIPERACIL-TAZO 4.5 GM PREMIX 100 ML IV SCH ×3 (03:05→09:19)
[2016-06-09] MEDS: PANTOPRAZOLE SODIUM 40 MG VIAL IV PUSH SCH ×2 (04:00→16:52)
[2016-06-09 06:53] LABS: AUTOMATED NEUTROPHIL # 2.5 TH/MM3 (1.8-7.7); BASOPHIL % 0.7 % (0.0-2.0); EOSINOPHIL % 1.1 % (0.0-4.0); HEMATOCRIT 32.7 % (39.0-51.0); LYMPH % 22.6 % (9.0-44.0); MEAN CELL VOLUME 80.6 FL (80.0-100.0); MEAN CORPUSCULAR HGB CONC 32.2 % (32.0-36.0); MONO % 16.8 % (0.0-8.0); NEUT % 58.8 % (16.0-70.0); PLATELET COUNT 93 TH/MM3 (150-450); RED BLOOD COUNT 4.05 MIL/MM3 (4.50-5.90); RED CELL DISTRIBUTION WIDTH 21.6 % (11.6-17.2); WHITE BLOOD COUNT 4.3 TH/MM3 (4.0-11.0)
[2016-06-09 06:55] LABS: HEMO FLAGS AUTO DIFF
[2016-06-09 06:56] LABS: INTERNATIONAL NORMALIZED RATIO 1.4 RATIO; PROTHROMBIN TIME - PATIENT 15.5 SEC (9.8-11.6)
[2016-06-09 08:25] LABS: PLATELET ESTIMATE SMEAR LOW (NORMAL); PLATELET MORPHOLOGY NORMAL (NORMAL); SCAN/DIFF AUTO DIFF CONFIRMED
[2016-06-09] MEDS: PHYTONADIONE 5 MG TAB PO SCH (09:00)
[2016-06-09] MEDS: LACTULOSE SYRUP 20 GM/30 ML CUP PO SCH ×2 (09:00→21:33)
[2016-06-09] MEDS: RIFAXIMIN 550 MG TAB PO SCH ×2 (09:18→21:32)
[2016-06-09] MEDS: FOLIC ACID 1 MG TAB PO SCH (09:18)
[2016-06-09] MEDS: THIAMINE INJ 100 MG in SODIUM CHLORIDE 0.9% INJ 100 ML IV SCH (09:19)
[2016-06-09] MEDS: SODIUM CHLORIDE 0.9% FLUSH 5 ML FLUSH FLUSH SCH ×2 (09:19→21:33)
--- NOTE | 2016-06-09 10:09 | HHI.PR ---
Subjective Remarks Follow-up for encephalopathy Patient is very sleepy but arousable, likely at baseline. Oriented to self, follows some commands. Denies any complaints. Poor historian. Minimal urine output. Discussed with RN Objective Vitals Vital Signs Date Time Temp Pulse Resp B/P Pulse Ox O2 Delivery O2 Flow Rate FiO2 06/09/16 10:05 72 06/09/16 09:50 98.0 88 18 118/74 96 06/09/16 09:38 88 06/09/16 08:03 88 06/09/16 06:26 80 06/09/16 05:00 80 06/09/16 04:00 88 06/09/16 03:00 75 06/09/16 03:00 75 102/69 97 06/09/16 02:00 84 06/09/16 01:00 84 06/09/16 00:00 75 06/08/16 23:00 75 06/08/16 23:00 98.0 87 110/75 98 06/08/16 22:00 87 06/08/16 21:00 86 06/08/16 20:00 86 06/08/16 19:00 92 06/08/16 19:00 98.0 92 18 118/85 94 06/08/16 18:00 83 06/08/16 17:00 78 06/08/16 16:00 76 06/08/16 15:00 77 06/08/16 15:00 98.0 82 20 112/71 98 06/08/16 14:00 75 06/08/16 13:00 80 06/08/16 12:00 80 06/08/16 11:00 98.3 77 20 108/70 99 06/08/16 11:00 81 I/O 06/08/16 06/08/16 06/08/16 06/09/16 06/09/16 06/09/16 07:00 15:00 23:00 07:00 15:00 23:00 Intake Total 240 ml 766 ml 120 ml Output Total 650 ml 200 ml 150 ml Balance -410 ml 566 ml -30 ml Intake Oral 240 ml 480 ml 120 ml IV Total 286 ml Output Urine Total 650 ml 200 ml 150 ml # Bowel Movements 2 1 2 Result Diagram: 06/09/1662406/09/16624 Objective Remarks General: Chronically ill-appearing male in no acute distress. Very sleepy, restraints in place. Heart: Regular rate and rhythm. No murmur. Lungs: Clear to auscultation bilaterally. Poor effort. Abdomen: Soft, distended, nontender, positive for superficial veins. Extremities: 1+ edema. Neuro exam: Sleepy, arousable with noxious stimulus, moves extremities, no asterixis noted. Procedures 06/03/16 paracentesis A/P Problem List: (1) Intracranial hemorrhage ICD Code: I62.9 Status: Acute (2) Anemia ICD Code: D64.9 Status: Acute (3) Coagulopathy ICD Code: D68.9 Status: Acute (4) Cirrhosis ICD Code: K74.60 Status: Chronic (5) Hyperammonemia ICD Code: E72.20 Status: Acute (6) Hepatic encephalopathy ICD Code: K72.90 Status: Acute (7) Hypokalemia ICD Code: E87.6 Status: Acute Assessment and Plan 1. Hepatic Encephalopathy: Secondary to liver disease versus intracranial hemorrhage. Ammonia level improved. Patient's mental status has improved somewhat, check EEG, might need to consult neurology. Continue lactulose and rifaximin. 2. Intracranial hemorrhage: MRI report noted, cleared by neurosurgery, likely cerebral peduncle contusion. 3. Coagulopathy: Patient received 2 units of FFP and 2 units PRBCs. Continue phytonadione. Monitor INR. 4. Ascites: Status post ultrasound-guided paracentesis with removal of 13 L fluid. Ascitic fluid analysis is not consistent with SBP. Stop antibiotics. Fluid has reaccumulated. Send for outer paracenteses, sent for culture. 5. Liver failure-continue lactulose, rifaximin, workup per GI. Continue diuretics. 6. Decreased urine output-continue diuretics, nephrology has signed off, not a good candidate for renal replacement therapy. Continue fluids as needed and albumin. 5. DVT prophylaxis: SCDs, [place] hose. Avoid chemical prophylaxis secondary to intracranial hemorrhage. Patient remains full code, aggressive therapy, palliative care following, has located . Problem Qualifiers (1) Anemia: Qualified Code: D64.9 - Anemia, unspecified type (2) Cirrhosis: Qualified Code: K74.60 - Cirrhosis of liver with ascites, unspecified hepatic cirrhosis type Geovanny Hahn MD Jun 09, 2016 10:09
--- NOTE | 2016-06-09 12:02 | HHI.HCPN ---
Reason for visit a. To assist with evaluation and management of symptoms including: pain, ascites, hepatic encephalopathy, oliguria b. To assist medical decision maker(s) with: better understanding of current medical conditions; weighing benefits/burdens of medical treatment options; making medical treatment decisions. . Subjective/Interval History Mr. Valladares is a chronically ill appearing 50-year-old male patient. Follow-up visit for oliguria, pain, hepatic encephalopathy and ascites. Patient seen and assessed in room 256 patient is obtunded. Arouses briefly to verbal stimuli. Attempting to answer simple questions with one-word answers, speech is gibberish. Patients remain in soft wrist restraints 4 secondary to confusion, disruption of medical devices. Received Haldol 1 yesterday for agitation. Afebrile. Hemodynamically stable. Abdomen is distended. 06/09/16: WBC 4.3, hemoglobin 10.5, hematocrit 32.7, platelets 93, neutrophils 58.8% Sodium 142, potassium 4.0, chloride 110, carbon dioxide 23.0, glucose 84, calcium 9.4 BUN 16, creatinine 0.94, GFR 85 Ammonia <10; lactose being held today secondary to abnormal lab result. UOP 350ml. Nephrology has signed off. Patient is not a good candidate for renal replacement therapy. Potassium 4.0 todaysupplement remains on hold. . Family/friend interactions [facility] report completed. Attempted to contact Marysol Lynch, possible ex- . Message left on Ms. Lynch voicemail with Palliative care contact information. Awaiting return phone call. . Objective Vital Signs Date Time Temp Pulse Resp B/P Pulse Ox O2 Delivery O2 Flow Rate FiO2 06/09/16 10:05 72 06/09/16 09:50 98.0 88 18 118/74 96 06/09/16 09:38 88 06/09/16 08:03 88 06/09/16 06:26 80 06/09/16 05:00 80 06/09/16 04:00 88 06/09/16 03:00 75 06/09/16 03:00 75 102/69 97 06/09/16 02:00 84 06/09/16 01:00 84 06/09/16 00:00 75 06/08/16 23:00 75 06/08/16 23:00 98.0 87 110/75 98 06/08/16 22:00 87 06/08/16 21:00 86 06/08/16 20:00 86 06/08/16 19:00 92 06/08/16 19:00 98.0 92 18 118/85 94 06/08/16 18:00 83 06/08/16 17:00 78 06/08/16 16:00 76 06/08/16 15:00 77 06/08/16 15:00 98.0 82 20 112/71 98 06/08/16 14:00 75 06/08/16 13:00 80 06/08/16 12:00 80 Intake & Output 06/09/16 06/09/16 07:00 19:00 Intake Total 120 ml Output Total 150 ml Balance -30 ml Intake Oral 120 ml Output Urine Total 150 ml # Bowel Movements 2 . Physical Exam CONSTITUTIONAL/GENERAL: This is a malnourished, middle aged male patient, in no apparent distress. TUBES/LINES/DRAINS: soft restraints x 4, cotto catheter, PIV x 1 SKIN: No wounds seen anteriorly. Skin temperature appropriate. Not diaphoretic. Left lower arm swollen, bruised. HEAD: Atraumatic. Normocephalic. EYES: Pupils equal and round and reactive. Extraocular motions intact. No injection or drainage. Fundi not examined. ENT: Hearing grossly normal. Nose without bleeding or purulent drainage. NECK: Trachea midline. Supple, nontender. No palpable thyroid enlargement or nodularity. CARDIOVASCULAR: Regular rate and rhythm without murmurs, gallops, or rubs. No JVD. Peripheral pulses symmetric. RESPIRATORY/CHEST: Symmetric, unlabored respirations. Clear to auscultation. Breath sounds equal bilaterally. No wheezes, rales, or rhonchi. GASTROINTESTINAL: Abdomen soft, distended. GENITOURINARY: Without palpable bladder distension. Cotto catheter in place, draining cloudy urine with sediment. MUSCULOSKELETAL: Extremities without clubbing, cyanosis. Trace edema in BLE LYMPHATICS: No palpable cervical or supraclavicular adenopathy. NEUROLOGICAL: Obtunded. Arouses briefly to verbal stimuli. Responds to simple questions with one-word answers. Speech is gibberish. PSYCHIATRIC: Difficult to assess due to clinical condition. No anxiety/agitation /hallucinations noted on exam. . . Diagnostic Tests Laboratory Laboratory Tests Test 06/06/16 06/08/16 06/09/16 13:45 10:45 06:25 Tumor Marker Alpha Fetoprotein 2.8 NG/ML (0.5-8.0) Vitamin B12 Level 1195 PG/ML (193-986) Folate 4.0 NG/ML (3.1-17.5) Hepatitis B Surface Antigen POSITIVE (NEGATIVE) Hepatitis B Surface Antibody, 0.6 mIU/mL Quant White Blood Count 4.2 TH/MM3 4.3 TH/MM3 (4.0-11.0) (4.0-11.0) Red Blood Count 4.08 MIL/MM3 4.05 MIL/MM3 (4.50-5.90) (4.50-5.90) Hemoglobin 10.8 GM/DL 10.5 GM/DL (13.0-17.0) (13.0-17.0) Hematocrit 33.2 % 32.7 % (39.0-51.0) (39.0-51.0) Mean Corpuscular Volume 81.5 FL 80.6 FL (80.0-100.0) (80.0-100.0) Mean Corpuscular Hemoglobin 26.6 PG 26.0 PG (27.0-34.0) (27.0-34.0) Mean Corpuscular Hemoglobin 32.6 % 32.2 % Concent (32.0-36.0) (32.0-36.0) Red Cell Distribution Width 21.1 % 21.6 % (11.6-17.2) (11.6-17.2) Platelet Count 90 TH/MM3 93 TH/MM3 (150-450) (150-450) Mean Platelet Volume 10.5 FL 9.7 FL (7.0-11.0) (7.0-11.0) Neutrophils (%) (Auto) 59.8 % 58.8 % (16.0-70.0) (16.0-70.0) Lymphocytes (%) (Auto) 20.5 % 22.6 % (9.0-44.0) (9.0-44.0) Monocytes (%) (Auto) 15.7 % 16.8 % (0.0-8.0) (0.0-8.0) Eosinophils (%) (Auto) 2.2 % (0.0-4.0) 1.1 % (0.0-4.0) Basophils (%) (Auto) 1.8 % (0.0-2.0) 0.7 % (0.0-2.0) Neutrophils # (Auto) 2.5 TH/MM3 2.5 TH/MM3 (1.8-7.7) (1.8-7.7) Lymphocytes # (Auto) 0.9 TH/MM3 1.0 TH/MM3 (1.0-4.8) (1.0-4.8) Monocytes # (Auto) 0.7 TH/MM3 0.7 TH/MM3 (0-0.9) (0-0.9) Eosinophils # (Auto) 0.1 TH/MM3 0.0 TH/MM3 (0-0.4) (0-0.4) Basophils # (Auto) 0.1 TH/MM3 0.0 TH/MM3 (0-0.2) (0-0.2) CBC Comment AUTO DIFF AUTO DIFF Differential Comment AUTO DIFF AUTO DIFF CONFIRMED CONFIRMED Platelet Estimate LOW (NORMAL) LOW (NORMAL) Platelet Morphology Comment NORMAL NORMAL (NORMAL) (NORMAL) Keratocytes OCC (NORMAL) Sodium Level 140 MEQ/L 142 MEQ/L (136-145) (136-145) Potassium Level 3.4 MEQ/L 4.0 MEQ/L (3.5-5.1) (3.5-5.1) Chloride Level 110 MEQ/L 110 MEQ/L (98-107) (98-107) Carbon Dioxide Level 19.8 MEQ/L 23.0 MEQ/L (21.0-32.0) (21.0-32.0) Anion Gap 10 MEQ/L (5-15) 9 MEQ/L (5-15) Blood Urea Nitrogen 15 MG/DL (7-18) 16 MG/DL (7-18) Creatinine 0.93 MG/DL 0.94 MG/DL (0.60-1.30) (0.60-1.30) Estimat Glomerular Filtration 86 ML/MIN (>89) 85 ML/MIN (>89) Rate Random Glucose 96 MG/DL 84 MG/DL (74-106) (74-106) Calcium Level 9.2 MG/DL 9.4 MG/DL (8.5-10.1) (8.5-10.1) Total Bilirubin 2.1 MG/DL (0.2-1.0) Aspartate Amino Transf 40 U/L (15-37) (AST/SGOT) Alanine Aminotransferase 20 U/L (12-78) (ALT/SGPT) Alkaline Phosphatase 59 U/L (45-117) Total Protein 7.3 GM/DL (6.4-8.2) Albumin 3.0 GM/DL (3.4-5.0) Prothrombin Time 15.5 SEC (9.8-11.6) Prothromb Time International 1.4 RATIO Ratio Ammonia LESS THAN 10 MCMOL/L (11-32) . Result Diagram: 06/09/16 0625 06/09/16 0625 Procedures 06/03/16: Paracentesis . Assessment and Plan Disease Oriented Problem List: (1) Hallucination (2) Acute kidney injury (3) Thrombocytopenia (4) Tobacco abuse (5) Alcohol withdrawal (6) Abdominal pain (7) Uncontrolled hypertension (8) Normochromic normocytic anemia (9) GERD (gastroesophageal reflux disease) (10) Ascites of liver (11) Cerebral contusion (12) Encephalopathy chronic (13) Anemia (14) Coagulopathy (15) Intracranial hemorrhage (16) Hepatic encephalopathy (17) Hypokalemia (18) Cirrhosis (19) Hyperammonemia (20) Oliguria Symptom Scale: (1) Oliguria Comment: UOP 350ml. Nephrology has signed off. Patient is not a good candidate for renal replacement therapy. Potassium 4.0 todaysupplement remains on hold. . (2) Pain Comment: Patient exhibits no signs or symptoms of pain on exam. Possible cause of pain includes ascites, recent fall, abrasions, contusions, invasive lines, soft restraint, immobility, bedbound status. Oxycodone 5mg PO is available q6 hours PRN, none required over the past 24 hours. Palliative Care will monitor PRN requirements and make recommendations as indicated. . (3) Ascites Comment: He underwent a ultrasound-guided paracenteses on 06/03/16 with 13,000 ml, yellow fluid removed. Peritoneal fluid culture negative. Ascitic fluid analysis is not consistent with SBP. Fluid has reaccumulated. Patient will likely need repeat paracentesis soon. (4) Hepatic encephalopathy Comment: Ammonia level on admission 06/02/1734. Ammonia level < 10 today. Lactulose being held. Continue Rifaximin Pertinent Non-Medical Issues Psychosocial: Per review of previous notes: Patient reports that he lives with his girlfriend but it is worth noting that he cannot remember his girlfriend's name or number. He has a 12th grade education. He says he has 2 children from her previous relationship. 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 He denies a history of legal problems. Denies any access to guns or firearms. Spiritual: Per review of previous notes: Patient reports that he lives with his girlfriend but it is worth noting that he cannot remember his girlfriend's name or number. He has a 12th grade education. He says he has 2 children from her previous relationship. 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 He denies a history of legal problems. Denies any access to guns or firearms. Legal: Pending identification of legal medical decision maker. Ethical issues impacting care: Case management consult placed requesting [facility] reports . Important Contacts Tyesha Palomares, friend: [phone]-PHONE NUMBER DISCONNECTED . Prognosis Patient is a cachectic 50 year old who has been hospitalized 5 times since November. 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 Currently admitted with status post fall, encephalopathic secondary to liver disease versus intracranial hemorrhage. Coagulopathy. Ascites. Status post ultrasound-guided paracentesis with removal of 13 L fluid. Nephrology now consulted for hypokalemia and decreased urine output. Prognosis poor-patient is appropriate for hospice. . Code Status: Full Code Plan * FULL CODE * Decision-making: Legal health care proxy is unknown at this time-[facility] report pending. * No family/friends known. Tyesha Palomares phone number has been disconnected. * Goals: Aggressive goals-pending identification of legal medical decision- making * Discussed with nurse, Hilda. * [facility] report received from Ally Whitmore. Possible ph-ukqo-Mrxw Berrios [phone]. Attempts to contact Ms. Lynch via telephone. Message left on voicemail with Palliative Care contact information, awaiting return phone call. * Symptom managementascites: Patient underwent a ultrasound-guided paracentesis on 06/03/16 with 13 L clear yellow fluid removed. Ascitic fluid analysis is not consistent with SBP. Fluid has reaccumulated, patient will likely need repeat paracentesis soon. * Symptom managementhepatic encephalopathy: Ammonia level on admission 1734. Ammonia level < 10 today. Lactulose being held. Continue Rifaximin * Symptom managementpain: Patient exhibits no signs or symptoms of pain on exam. Possible cause of pain includes ascites, recent fall, abrasions, contusions, invasive lines, soft restraint, immobility, bedbound status. Oxycodone 5mg PO is available q6 hours PRN, none required over the past 24 hours. Palliative Care will monitor PRN requirements and make recommendations as indicated. * Symptom managementoliguria: Urine output 350ml. Nephrology has signed off. Patient is not a good candidate for renal replacement therapy. Potassium 4.0 todaysupplement remains on hold. Monitor urine output and CMP. * Palliative care will continue to follow this patient throughout his hospitalization to establish trust, assist with symptom management and clarification of medical treatment goals. Jayne Lopez Jun 09, 2016 12:01
[2016-06-09] MEDS: NS + KCL 20 MEQ INJ 1,000 ML IV SCH (13:54)
--- NOTE | 2016-06-09 15:20 | MG ---
cc: MANUELA TRAN THENDREX MD Lab No: [id number] Date: 06/09/2016 Age: Sex: M TECHNIQUE 17-channel EEG. DESCRIPTION The background rhythm reveals symmetrical alpha rhythm, frequency 8-10 Hz, amplitude about 20-40 microvolts. Some muscle artifact is identified in the frontal leads. No lateralizing features are identified. No epileptiform features are seen. Photic stimulation results in a normal driving response. INTERPRETATION Normal EEG. MD ARTUR Garay/TATA /3:10 PM /3:18 PM
--- NOTE | 2016-06-09 23:53 | HHI.GIFU ---
Subjective Remarks Patient confused but alert and appears to be comfortable in bed denies any pain Objective Vitals I&O Vital Signs Date Time Temp Pulse Resp B/P Pulse Ox O2 Delivery O2 Flow Rate FiO2 06/09/16 20:00 97.3 101 19 119/83 99 06/09/16 14:38 97.0 78 18 101/66 94 06/09/16 14:14 83 06/09/16 13:13 86 06/09/16 12:14 88 06/09/16 11:43 98.0 88 18 126/74 96 06/09/16 11:43 80 06/09/16 10:05 72 06/09/16 09:50 98.0 88 18 118/74 96 06/09/16 09:38 88 06/09/16 08:03 88 06/09/16 06:26 80 06/09/16 05:00 80 06/09/16 04:00 88 06/09/16 03:00 75 06/09/16 03:00 75 102/69 97 06/09/16 02:00 84 06/09/16 01:00 84 06/09/16 00:00 75 I/O 06/08/16 06/08/16 06/08/16 06/09/16 06/09/16 06/09/16 07:00 15:00 23:00 07:00 15:00 23:00 Intake Total 240 ml 766 ml 120 ml 240 ml Output Total 650 ml 200 ml 150 ml 300 ml Balance -410 ml 566 ml -30 ml -60 ml Intake Oral 240 ml 480 ml 120 ml 240 ml IV Total 286 ml Output Urine Total 650 ml 200 ml 150 ml 300 ml # Bowel Movements 2 1 2 1 Laboratory Laboratory Tests Test 06/09/16 06:25 White Blood Count 4.3 Red Blood Count 4.05 Hemoglobin 10.5 Hematocrit 32.7 Mean Corpuscular Volume 80.6 Mean Corpuscular Hemoglobin 26.0 Mean Corpuscular Hemoglobin 32.2 Concent Red Cell Distribution Width 21.6 Platelet Count 93 Mean Platelet Volume 9.7 Neutrophils (%) (Auto) 58.8 Lymphocytes (%) (Auto) 22.6 Monocytes (%) (Auto) 16.8 Eosinophils (%) (Auto) 1.1 Basophils (%) (Auto) 0.7 Neutrophils # (Auto) 2.5 Lymphocytes # (Auto) 1.0 Monocytes # (Auto) 0.7 Eosinophils # (Auto) 0.0 Basophils # (Auto) 0.0 CBC Comment AUTO DIFF Differential Comment AUTO DIFF CONFIRMED Platelet Estimate LOW Platelet Morphology Comment NORMAL Prothrombin Time 15.5 Prothromb Time International 1.4 Ratio Sodium Level 142 Potassium Level 4.0 Chloride Level 110 Carbon Dioxide Level 23.0 Anion Gap 9 Blood Urea Nitrogen 16 Creatinine 0.94 Estimat Glomerular Filtration 85 Rate Random Glucose 84 Calcium Level 9.4 Ammonia LESS THAN 10 Physical Exam HEENT:Normocephalic; atraumatic; no jaundice. CHEST: CTA CARDIAC: Regular rate and rhythm with no murmur gallop or rubs. ABDOMEN: Soft, ascites present significant but not tense, nontender; hepatosplenomegaly; bowel sounds are present in all four quadrants. EXTREMITIES: No clubbing, cyanosis, or edema. SKIN: Normal; no rash; no jaundice. CREATIVE DEVELOPER: awake and follows commands and confused Assessment and Plan Plan ASSESSMENT: - AMS. Unclear how much of this is related to his TBI and how much is hepatic encephalopathy. Ammonia level is 21, but he was recently hospitalized for hepatic encephalopathy and it is unclear if he had been taking his lactulose. Of note, during his last hospitalization he was positive for opiates and benzodiazepines. There was not a toxicology screen during this hospitalization. Recommend Lactulose 30mL po BID, Xifaxan 550mg po BID. Pt is now taking npo and therefore we can hold off on NGT. 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 MELD 13. T. Bili 1.9, AST 18, ALT 15, Alk Phosph 46. - Ascites. S/P paracentesis on 05/07 with 10L of fluid removed and again on () and had 13,000 cc fluid removed. Culture has no growth x 24 hours. Cytology is pending. S/P Albumin x 1. - Hepatic encephalopathy. Ammonia 21, but was almost obtunded. Unclear how much is related to TBI and hepatic encephalopathy or if he was overmedicated prior to arrival to ER. Much better today. Xifaxan/Lactulose. - Coagulopathy/Thrombocytopenia. PT 16.7, INR 1.5 - Hypokalemia, S/P replacement per primary - Anemia. Pt has hx of iron deficiency anemia and had EGD/Colonoscopy (11/20/15) -----> severe gastritis, gastropathy, duodenal ulcers, esophagitis with irregular z line, normal appearing colonic mucosa. Pathology revealed gastral antral mucosal biopsy with foveolar hyperplasia, telangiectasia and vascular congestion negative for gastritis, gastropathy, metaplasia, and dysplasia, anna stain negative for helicobacter. HH 8.6/ 25.4. - TBI. S/P Fall on 06/02 by EVAC after a fall in his neighbor's yard. Head CT ()----> 1. Questionable small intraparenchymal hematoma involving the right middle cerebellar peduncle. 2. Large right parietal soft tissue hematoma. He was evaluated by neurosurgery for his cerebral contusion and he then had a repeat CT scan on () which revealed a small focal area of high attenuation seen in the right cerebellar peduncle , the cerebellar hemisphere appears this is probably a hemorrhage given it's evolving appearance. The supratentorial brain is unremarkable. No evidence for skull fracture. Brain MRI (06/04/16)----> Small focal hemorrhage identified in the region of the right cerebellum. Linear areas of increased T2 signal identified within the right and left cerebellar peduncle and within the left temporal lobe without corresponding hemorrhage or restricted diffusion. These may represent sequelae of trauma. PLAN: - ELLI, Low Salt - Xifaxan 550mg po BID - Lactulose 30 mL po BID -I will start patient on Lasix 40 mg IV daily and spironolactone 100 mg by mouth daily - Cont. PPI - Cont. Vitamin K - CBC, CMP in a.m. - Supportive care - Further recommendations to follow based on results of above -No need for paracentesis at this point Christophe Neil MD Jun 09, 2016 23:53
[2016-06-10] VITALS (10 sets, daily range): BP systolic 110–154; BP diastolic 70–102; PULSE 76–104; RESP 16–20; TEMP 95.5–97.9; O2SAT 94–99
[2016-06-10] MEDS: PANTOPRAZOLE SODIUM 40 MG VIAL IV PUSH SCH ×2 (05:00→16:00)
[2016-06-10 07:06] LABS: HEMATOCRIT 33.7 % (39.0-51.0); MEAN CELL VOLUME 80.8 FL (80.0-100.0); MEAN CORPUSCULAR HEMOGLOBIN 26.5 PG (27.0-34.0); MEAN CORPUSCULAR HGB CONC 32.7 % (32.0-36.0); PLATELET COUNT 95 TH/MM3 (150-450); RED BLOOD COUNT 4.17 MIL/MM3 (4.50-5.90); RED CELL DISTRIBUTION WIDTH 22.5 % (11.6-17.2); WHITE BLOOD COUNT 4.5 TH/MM3 (4.0-11.0)
[2016-06-10 07:12] LABS: REVIEW FLAG FINAL
[2016-06-10 07:33] LABS: ALKALINE PHOSPHATASE 58 U/L (45-117); TOTAL BILIRUBIN ADULT 1.8 MG/DL (0.2-1.0)
[2016-06-10 07:53] LABS: ALT (GPT) 18 U/L (12-78); ANION GAP 8 MEQ/L (5-15); AST (GOT) 40 U/L (15-37); BICARBONATE 22.2 MEQ/L (21.0-32.0); BLOOD UREA NITROGEN 16 MG/DL (7-18); CHLORIDE 111 MEQ/L (98-107); GLOMERULAR FILTRATION RATE 101 ML/MIN (>89); POTASSIUM 3.9 MEQ/L (3.5-5.1); SODIUM (NA) 141 MEQ/L (136-145)
[2016-06-10 07:55] LABS: HCV RNA PCR IU/ML LESS THAN 15 IU/mL (()); HCV RNA PCR LOGIU/ML LESS THAN 1.18 (())
[2016-06-10] MEDS: RIFAXIMIN 550 MG TAB PO SCH ×2 (09:00→21:15)
[2016-06-10] MEDS ORDERED: FUROSEMIDE 40 MG/4 ML VIAL IV PUSH SCH (09:00)
[2016-06-10] MEDS ORDERED: SPIRONOLACTONE 100 MG TAB PO SCH (09:00)
[2016-06-10] MEDS: NS + KCL 20 MEQ INJ 1,000 ML IV SCH (09:42)
[2016-06-10] MEDS: FOLIC ACID 1 MG TAB PO SCH (09:43)
[2016-06-10] MEDS: LACTULOSE SYRUP 20 GM/30 ML CUP PO SCH ×2 (09:43→21:15)
[2016-06-10] MEDS: PHYTONADIONE 5 MG TAB PO SCH (09:43)
[2016-06-10] MEDS: THIAMINE INJ 100 MG in SODIUM CHLORIDE 0.9% INJ 100 ML IV SCH (09:43)
[2016-06-10] MEDS: SODIUM CHLORIDE 0.9% FLUSH 5 ML FLUSH FLUSH SCH ×2 (09:44→21:00)
[2016-06-10] MEDS ORDERED: ALBUMIN HUMAN 25% 25 GM/100 ML BAGP IV ONE (11:15)
[2016-06-10 11:58] LABS: HEP B DNA R1 LESS THAN 20 IU/mL (()); HEP B DNA R2 LESS THAN 1.30 (())
--- NOTE | 2016-06-10 13:08 | RADRPT ---
EXAM DATE/TIME: 06/10/2016 10:49 [facility] COMPARISON: US GUIDED ABD PARACENTESIS, June 03, 2016, 15:12. INDICATIONS : Ascites. MEDICAL HISTORY : Hypertension. Hepatitis C. Cirrhosis. Confusion. Pleurisy. GERD. Abdominal pain. Mood disorders. [place] ucinations. Depression. Anxiety. SURGICAL HISTORY : Paracentesis. ENCOUNTER: Subsequent ACUITY: 1 week PAIN SCORE: Non-responsive LOCATION: Right lower quadrant FLUID: Total volume of 11,400 cc of clear, yellow fluid was removed. Fluid was sent to lab for ordered studies. Post procedure scanning reveals no hematoma or other complication. TECHNIQUE: 1. Ultrasound guidance for abdominal paracentesis. 2. Paracentesis. Study was deemed medically necessary by attending physician.. With the patient on the ultrasound table, ultrasound imaging was used to select the most appropriate approach for paracentesis. Overlying skin was prepped and draped in the usual sterile fashion and wi th a local anesthetic, a dermatotomy was made with an 11 blade scalpel. A 6 Urdu Qay-H-clfhxamo ca theter was introduced into the peritoneal cavity and fluid was collected. The patient tolerated the procedure well and left the ultrasound suite in stable condition. CONCLUSION: Uncomplicated ultrasound guided paracentesis. Patient received albumin per protocol. Tyson Farias MD FACR on June 10, 2016 at 13:06 Board Certified Radiologist. This report was verified electronically.
--- NOTE | 2016-06-10 13:25 | HHI.HCPN ---
Reason for visit a. To assist with evaluation and management of symptoms including: pain, ascites, hepatic encephalopathy, oliguria b. To assist medical decision maker(s) with: better understanding of current medical conditions; weighing benefits/burdens of medical treatment options; making medical treatment decisions. . Subjective/Interval History Mr. Valladares is a chronically ill appearing 50-year-old male patient. Follow-up visit for oliguria, pain, hepatic encephalopathy and ascites. Patient seen and assessed in room 1621. Awake, remains confused. Attempts to answer simple questions. Speech is soft, non-sensical. Moves all extremities slowly, purposeful. Patients remain in soft wrist restraints secondary to confusion, disruption of medical devices. Appetite remain poor, refusing to eat per nurse Pleitez. Patient underwent a ultrasound-guided paracenteses on 06/03/16 with 13,000 ml, yellow fluid removed - fluid analysis is not consistent with SBP. Abdomen remains distended status post ultrasound-guided paracentesis earlier today with 11.4L clear, yellow fluid removed. Fluid sent to lab-results pending. Albumin ordered. Patient reporting abdominal pain but unable to describe or quantify secondary to his confusion. Nurse aware administering Oxycodone. Current orders for Oxycodone 5mg PO [id number] PRN. 06/10/16: WBC 4.5, hemoglobin 11.0, hematocrit 33.7, platelets 95 Sodium 141, potassium 3.9, chloride 111, carbon dioxide 22.2, glucose 86, calcium 9.4 BUN 16, creatinine 0.81, GFR 101 Total bilirubin 1.8, AST 40, ALT 18, alkaline phosphatase 58 Total protein 7.4, albumin 3.2 Ammonia <10 on 06/09/16 Nephrology has signed off. Per nephrology, patient is not a good candidate for renal replacement therapy. Potassium 3.9 today. UOP 400. Monitor urine output and CMP. Diuretics resumed 06/10/16. [facility] report completed 06/08/16. Possible ex- identified with contact information. Attempted to contact via telephone x 2 on 06/09/15 and 06/10/16. Messages left with Palliative care contact information. Patient is unable to provide information about family/friends. . Family/friend interactions [facility] report completed 06/08/16. Possible ex- identified with contact information. Attempted to contact via telephone x 2 on 06/09/15 and 06/10/16. Messages left with Palliative care contact information. . Objective Vital Signs Date Time Temp Pulse Resp B/P Pulse Ox O2 Delivery O2 Flow Rate FiO2 06/10/16 12:00 95.5 102 19 154/92 99 06/10/16 11:02 97.0 100 20 142/102 94 06/10/16 08:00 96.9 90 20 129/91 99 06/10/16 04:18 95.8 76 17 115/79 96 06/10/16 00:26 96.7 76 17 110/70 96 06/09/16 20:00 97.3 101 19 119/83 99 06/09/16 14:38 97.0 78 18 101/66 94 06/09/16 14:14 83 . Physical Exam CONSTITUTIONAL/GENERAL: This is a malnourished, chronically ill middle aged male patient, in no apparent distress. TUBES/LINES/DRAINS: soft restraints cotto catheter, PIV x 1 SKIN: Skin temperature appropriate. Not diaphoretic. Left lower arm swollen, bruised. Abrasions left thigh. HEAD: Atraumatic. Normocephalic. EYES: Pupils equal and round and reactive. No injection or drainage. Fundi not examined. ENT: Hearing grossly normal. Nose without bleeding or purulent drainage. NECK: Trachea midline. Supple, nontender. No palpable thyroid enlargement or nodularity. CARDIOVASCULAR: Regular rate and rhythm without murmurs, gallops, or rubs. No JVD. Peripheral pulses symmetric. RESPIRATORY/CHEST: Symmetric, unlabored respirations. Clear to auscultation. Breath sounds equal bilaterally. No wheezes, rales, or rhonchi. GASTROINTESTINAL: Abdomen soft, distended. GENITOURINARY: Without palpable bladder distension. Cotto catheter in place MUSCULOSKELETAL: Extremities without clubbing, cyanosis. NEUROLOGICAL: Awake, remains confused. Attempts to answer simple questions. Speech is soft, non-sensical. Moves all extremities slowly, purposeful. Patients remain in soft wrist restraints secondary to confusion, disruption of medical devices. PSYCHIATRIC: Difficult to assess due to clinical condition. No anxiety/agitation /hallucinations noted on exam. . . Diagnostic Tests Laboratory Laboratory Tests Test 06/08/16 06/09/16 06/10/16 10:45 06:25 06:40 White Blood Count 4.2 TH/MM3 4.3 TH/MM3 4.5 TH/MM3 (4.0-11.0) (4.0-11.0) (4.0-11.0) Red Blood Count 4.08 MIL/MM3 4.05 MIL/MM3 4.17 MIL/MM3 (4.50-5.90) (4.50-5.90) (4.50-5.90) Hemoglobin 10.8 GM/DL 10.5 GM/DL 11.0 GM/DL (13.0-17.0) (13.0-17.0) (13.0-17.0) Hematocrit 33.2 % 32.7 % 33.7 % (39.0-51.0) (39.0-51.0) (39.0-51.0) Mean Corpuscular Volume 81.5 FL 80.6 FL 80.8 FL (80.0-100.0) (80.0-100.0) (80.0-100.0) Mean Corpuscular Hemoglobin 26.6 PG 26.0 PG 26.5 PG (27.0-34.0) (27.0-34.0) (27.0-34.0) Mean Corpuscular Hemoglobin 32.6 % 32.2 % 32.7 % Concent (32.0-36.0) (32.0-36.0) (32.0-36.0) Red Cell Distribution Width 21.1 % 21.6 % 22.5 % (11.6-17.2) (11.6-17.2) (11.6-17.2) Platelet Count 90 TH/MM3 93 TH/MM3 95 TH/MM3 (150-450) (150-450) (150-450) Mean Platelet Volume 10.5 FL 9.7 FL 10.1 FL (7.0-11.0) (7.0-11.0) (7.0-11.0) Neutrophils (%) (Auto) 59.8 % 58.8 % (16.0-70.0) (16.0-70.0) Lymphocytes (%) (Auto) 20.5 % 22.6 % (9.0-44.0) (9.0-44.0) Monocytes (%) (Auto) 15.7 % 16.8 % (0.0-8.0) (0.0-8.0) Eosinophils (%) (Auto) 2.2 % (0.0-4.0) 1.1 % (0.0-4.0) Basophils (%) (Auto) 1.8 % (0.0-2.0) 0.7 % (0.0-2.0) Neutrophils # (Auto) 2.5 TH/MM3 2.5 TH/MM3 (1.8-7.7) (1.8-7.7) Lymphocytes # (Auto) 0.9 TH/MM3 1.0 TH/MM3 (1.0-4.8) (1.0-4.8) Monocytes # (Auto) 0.7 TH/MM3 0.7 TH/MM3 (0-0.9) (0-0.9) Eosinophils # (Auto) 0.1 TH/MM3 0.0 TH/MM3 (0-0.4) (0-0.4) Basophils # (Auto) 0.1 TH/MM3 0.0 TH/MM3 (0-0.2) (0-0.2) CBC Comment AUTO DIFF AUTO DIFF Differential Comment AUTO DIFF AUTO DIFF CONFIRMED CONFIRMED Platelet Estimate LOW (NORMAL) LOW (NORMAL) Platelet Morphology Comment NORMAL NORMAL (NORMAL) (NORMAL) Keratocytes OCC (NORMAL) Sodium Level 140 MEQ/L 142 MEQ/L 141 MEQ/L (136-145) (136-145) (136-145) Potassium Level 3.4 MEQ/L 4.0 MEQ/L 3.9 MEQ/L (3.5-5.1) (3.5-5.1) (3.5-5.1) Chloride Level 110 MEQ/L 110 MEQ/L 111 MEQ/L (98-107) (98-107) (98-107) Carbon Dioxide Level 19.8 MEQ/L 23.0 MEQ/L 22.2 MEQ/L (21.0-32.0) (21.0-32.0) (21.0-32.0) Anion Gap 10 MEQ/L (5-15) 9 MEQ/L (5-15) 8 MEQ/L (5-15) Blood Urea Nitrogen 15 MG/DL (7-18) 16 MG/DL (7-18) 16 MG/DL (7-18) Creatinine 0.93 MG/DL 0.94 MG/DL 0.81 MG/DL (0.60-1.30) (0.60-1.30) (0.60-1.30) Estimat Glomerular Filtration 86 ML/MIN (>89) 85 ML/MIN (>89) 101 ML/MIN Rate (>89) Random Glucose 96 MG/DL 84 MG/DL 86 MG/DL (74-106) (74-106) (74-106) Calcium Level 9.2 MG/DL 9.4 MG/DL 9.4 MG/DL (8.5-10.1) (8.5-10.1) (8.5-10.1) Total Bilirubin 2.1 MG/DL 1.8 MG/DL (0.2-1.0) (0.2-1.0) Aspartate Amino Transf 40 U/L (15-37) 40 U/L (15-37) (AST/SGOT) Alanine Aminotransferase 20 U/L (12-78) 18 U/L (12-78) (ALT/SGPT) Alkaline Phosphatase 59 U/L (45-117) 58 U/L (45-117) Total Protein 7.3 GM/DL 7.4 GM/DL (6.4-8.2) (6.4-8.2) Albumin 3.0 GM/DL 3.2 GM/DL (3.4-5.0) (3.4-5.0) Prothrombin Time 15.5 SEC (9.8-11.6) Prothromb Time International 1.4 RATIO Ratio Ammonia LESS THAN 10 MCMOL/L (11-32) . Result Diagram: 06/10/16 0640 06/10/16 0640 Microbiology Microbiology Date/Time Procedure Status Source Growth 06/10/16 11:10 Gram Stain Received Fluid Peritoneal Fluid Pending 06/10/16 11:10 Body Fluid Culture Received Fluid Peritoneal Fluid Pending . Procedures 06/03/16: Paracentesis 06/10/16: Paracentesis . . Assessment and Plan Disease Oriented Problem List: (1) Hallucination (2) Acute kidney injury (3) Thrombocytopenia (4) Tobacco abuse (5) Alcohol withdrawal (6) Abdominal pain (7) Uncontrolled hypertension (8) Normochromic normocytic anemia (9) GERD (gastroesophageal reflux disease) (10) Ascites of liver (11) Cerebral contusion (12) Encephalopathy chronic (13) Anemia (14) Coagulopathy (15) Intracranial hemorrhage (16) Hepatic encephalopathy (17) Hypokalemia (18) Cirrhosis (19) Hyperammonemia (20) Oliguria Symptom Scale: (1) Oliguria 0-10 Scale: Unable to quantify Comment: Nephrology has signed off. Per nephrology, patient is not a good candidate for renal replacement therapy. Potassium 3.9 today. UOP 400. Monitor urine output and CMP. Diuretics resumed 06/10/16. . (2) Pain 0-10 Scale: Unable to quantify Comment: Patient exhibits no signs or symptoms of pain on exam. Possible cause of pain includes ascites, recent fall, abrasions, contusions, invasive lines, soft restraint, immobility, bedbound status. Oxycodone 5mg PO is available q6 hours PRN, none required over the past 24 hours. Palliative Care will monitor PRN requirements and make recommendations as indicated. . (3) Ascites 0-10 Scale: Unable to quantify Comment: He underwent a ultrasound-guided paracenteses on 06/03/16 with 13,000 ml, yellow fluid removed. Peritoneal fluid culture negative. Ascitic fluid analysis is not consistent with SBP. Fluid has reaccumulated and patient underwent another ultrasound-guided paracentesis on 06/10/16 with 11,400mL's of clear, yellow fluid removed. Fluid was sent to lab for ordered studies. . (4) Hepatic encephalopathy 0-10 Scale: Unable to quantify Comment: Ammonia level on admission 06/02/1734. Ammonia level < 10 today. Lactulose being held. Continue Rifaximin Pertinent Non-Medical Issues Psychosocial: Per review of previous notes: Patient reports that he lives with his girlfriend but it is worth noting that he cannot remember his girlfriend's name or number. He has a 12th grade education. He says he has 2 children from her previous relationship. 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 He denies a history of legal problems. Denies any access to guns or firearms. Spiritual: Per review of previous notes: Patient reports that he lives with his girlfriend but it is worth noting that he cannot remember his girlfriend's name or number. He has a 12th grade education. He says he has 2 children from her previous relationship. 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 He denies a history of legal problems. Denies any access to guns or firearms. Legal: Pending identification of legal medical decision maker. Ethical issues impacting care: Case management consult placed requesting [facility] reports . Important Contacts Tyesha Palomares, friend: [phone]-PHONE NUMBER DISCONNECTED . Prognosis Patient is a cachectic 50 year old who has been hospitalized 5 times since November. 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 Currently admitted with status post fall, encephalopathic secondary to liver disease versus intracranial hemorrhage. Coagulopathy. Ascites. Status post ultrasound-guided paracentesis with removal of 13 L fluid. Nephrology now consulted for hypokalemia and decreased urine output. Prognosis poor-patient is appropriate for hospice. . Code Status: Full Code Plan * FULL CODE * Decision-making: Legal health care proxy is unknown at this time-accurints report pending. * No family/friends known. Tyesha Palomares phone number has been disconnected. * Goals: Aggressive goals-pending identification of legal medical decision- making * Discussed with nurse, Pricilla, and continuous pillowcase cutter Anu * [facility]'s report received from Ally Whitmore on 06/09/16. Possible [id number] Berrios [phone]. * Palliative care attempted to contact Ms. Lynch via telephone x 2 on 06/09/16 and 06/10/16. Message left on voicemail both time with Palliative Care contact information, awaiting return phone call. * Symptom managementascites:He underwent a ultrasound-guided paracenteses on with 13,000 ml, yellow fluid removed. Peritoneal fluid culture negative. Ascitic fluid analysis is not consistent with SBP. Fluid has reaccumulated and patient underwent another ultrasound-guided paracentesis on 06/10/16 with 11,400mL 's of clear, yellow fluid removed. Fluid was sent to lab for ordered studies. * Symptom managementhepatic encephalopathy: Ammonia level on admission 1734. Ammonia level < 10 yesterday 06/09/16. * Normal EEG 06/09/16 * Symptom managementpain: Patient exhibits no signs or symptoms of pain on exam. Possible cause of pain includes ascites, recent fall, abrasions, contusions, invasive lines, soft restraint, immobility, bedbound status. Oxycodone 5mg PO is available q6 hours PRN, none required over the past 24 hours. Palliative Care will monitor PRN requirements and make recommendations as indicated. * Symptom managementoliguria: Nephrology has signed off. Per nephrology, patient is not a good candidate for renal replacement therapy. Potassium 3.9 today. UOP 400. Monitor urine output and CMP. Diuretics resumed 06/10/16. * Palliative care will continue to follow this patient throughout his hospitalization to establish trust, assist with symptom management and clarification of medical treatment goals. . Attestation To help prompt me to consider important information that might be impacting today's encounter and assessment, information from prior notes written by myself or my colleagues may have been "brought forward" into today's note. My signature on this note, however, is an attestation that I personally performed the exam, history, and/or decision-making noted today, and, unless otherwise indicated, the interactions with patient, family, and staff as well as the review of records all occurred today. I also attest that the listed assessment and stated plan reflect my best clinical judgment today based on the combination of historical information, prior notes, and today's exam/ interactions. When time spent is documented, it refers only to time spent today by the signer, or if indicated, combined time spent today by collaborating physician/nurse practitioner. . Jayne Lopez Jun 10, 2016 13:25
[2016-06-10 13:34] LABS: PERITONEAL WBC 58 /MM3 (0-10)
[2016-06-10 13:35] LABS: PERITONEAL BASO 1 %; PERITONEAL HISTIOCYTES 9 %; PERITONEAL LYMPHS 51 %; PERITONEAL MONOS 21 %; PERITONEAL POLYS(SEGS) 18 %
--- NOTE | 2016-06-10 17:12 | HHI.PR ---
Subjective Remarks Follow-up for encephalopathy, ascites Patient status post arsenic doses today, 11 L taken out. Patient now more awake , more interactive. Oriented to self but not to time. Denies any abdominal pain, chest pain or shortness of breath. Urine output is minimal. Objective Vitals Vital Signs Date Time Temp Pulse Resp B/P Pulse Ox O2 Delivery O2 Flow Rate FiO2 06/10/16 16:00 97.9 88 16 124/80 98 06/10/16 12:00 95.5 102 19 154/92 99 06/10/16 11:02 97.0 100 20 142/102 94 06/10/16 08:00 96.9 90 20 129/91 99 06/10/16 04:18 95.8 76 17 115/79 96 06/10/16 00:26 96.7 76 17 110/70 96 06/09/16 20:00 97.3 101 19 119/83 99 I/O 06/09/16 06/09/16 06/09/16 06/10/16 06/10/16 06/10/16 07:00 15:00 23:00 07:00 15:00 23:00 Intake Total 120 ml 240 ml 120 ml 50 ml Output Total 150 ml 300 ml 100 ml 150 ml Balance -30 ml -60 ml 20 ml -100 ml Intake Oral 120 ml 240 ml 120 ml 50 ml Output Urine Total 150 ml 300 ml 100 ml 150 ml # Bowel Movements 2 1 0 1 Result Diagram: 06/10/16 0640 06/10/16 0640 Objective Remarks General: Chronically ill-appearing male in no acute distress. Very sleepy, restraints in place. Heart: Regular rate and rhythm. No murmur. Lungs: Clear to auscultation bilaterally. Poor effort. Abdomen: Soft, less distended, nontender, positive for superficial veins. Extremities: 1+ edema. Neuro exam: Sleepy, arousable with noxious stimulus, moves extremities, no asterixis noted. Procedures 06/03/16 paracentesis A/P Problem List: (1) Intracranial hemorrhage ICD Code: I62.9 Status: Acute (2) Anemia ICD Code: D64.9 Status: Acute (3) Coagulopathy ICD Code: D68.9 Status: Acute (4) Cirrhosis ICD Code: K74.60 Status: Chronic (5) Hyperammonemia ICD Code: E72.20 Status: Acute (6) Hepatic encephalopathy ICD Code: K72.90 Status: Acute (7) Hypokalemia ICD Code: E87.6 Status: Acute Assessment and Plan 1. Hepatic Encephalopathy: Secondary to liver disease versus intracranial hemorrhage. Ammonia level improved. Patient's mental status has improved somewhat, follow-up EEG, might need to consult neurology. Continue lactulose and rifaximin. 2. Intracranial hemorrhage: MRI report noted, cleared by neurosurgery, likely cerebral peduncle contusion. 3. Coagulopathy: Patient received 2 units of FFP and 2 units PRBCs. Continue phytonadione. Monitor INR. 4. Ascites: Status post ultrasound-guided paracentesis with removal of 13 L fluid. Ascitic fluid analysis is not consistent with SBP. Stop antibiotics. Status post paracentesis again 06/10/16. Follow-up culture results. 5. Liver failure-continue lactulose, rifaximin, workup per GI. Hold diuretics today with decreased urine output. 6. Decreased urine output-nephrology has signed off, not a good candidate for renal replacement therapy. Continue fluids as needed and albumin. Hold diuretics today. Recheck BMP tomorrow 5. DVT prophylaxis: SCDs, [place] pandya. Avoid chemical prophylaxis secondary to intracranial hemorrhage. Patient remains full code, aggressive therapy, palliative care following, has located . Problem Qualifiers (1) Anemia: Qualified Code: D64.9 - Anemia, unspecified type (2) Cirrhosis: Qualified Code: K74.60 - Cirrhosis of liver with ascites, unspecified hepatic cirrhosis type Geovanny Hahn MD Jun 10, 2016 17:12
[2016-06-11] VITALS (10 sets, daily range): BP systolic 126–148; BP diastolic 82–94; PULSE 101–109; RESP 17–40; TEMP 95.4–97.5; O2SAT 92–100
[2016-06-11] MEDS: PANTOPRAZOLE SODIUM 40 MG VIAL IV PUSH SCH (04:40)
[2016-06-11 06:11] LABS: BICARBONATE 20.1 MEQ/L (21.0-32.0); POTASSIUM 3.3 MEQ/L (3.5-5.1)
--- NOTE | 2016-06-11 09:38 | HHI.GIFU ---
Subjective Remarks Resting in bed. Confused. Sounds very congested, although no distress. Nurse reports he is taking po medications. (Thelma Conte) Objective Vitals I&O Vital Signs Date Time Temp Pulse Resp B/P Pulse Ox O2 Delivery O2 Flow Rate FiO2 06/11/16 08:00 95.4 106 19 127/87 93 06/11/16 04:14 96.1 105 17 127/92 96 06/11/16 00:31 96.2 109 19 148/94 96 06/10/16 20:00 102 06/10/16 19:17 96.7 104 18 149/91 97 06/10/16 16:00 97.9 88 16 124/80 98 06/10/16 12:30 96.0 99 18 152/92 95 06/10/16 12:15 95.6 100 19 153/92 95 06/10/16 12:00 95.5 102 19 154/92 99 06/10/16 11:02 97.0 100 20 142/102 94 I/O 06/10/16 06/10/16 06/10/16 06/11/16 06/11/16 06/11/16 07:00 15:00 23:00 07:00 15:00 23:00 Intake Total 120 ml 50 ml 698 ml 680 ml Output Total 100 ml 150 ml 150 ml 175 ml Balance 20 ml -100 ml 548 ml 505 ml Intake Oral 120 ml 50 ml 360 ml 120 ml IV Total 338 ml 560 ml Output Urine Total 100 ml 150 ml 150 ml 175 ml # Bowel Movements 0 1 1 Laboratory Laboratory Tests Test 06/10/16 06/11/16 11:10 05:15 Peritoneal Fluid WBC 58 Peritoneal Fluid RBC 19 Peritoneal Fluid Neutrophils 18 Peritoneal Fluid Lymphocytes 51 Peritoneal Fluid Monocytes 21 Peritoneal Fluid Basophils 1 Peritoneal Fluid Histiocytes 9 Sodium Level 143 Potassium Level 3.3 Chloride Level 110 Carbon Dioxide Level 20.1 Anion Gap 13 Blood Urea Nitrogen 14 Creatinine 0.79 Estimat Glomerular Filtration 104 Rate Random Glucose 116 Calcium Level 9.7 Date/Time Procedure Status Source Growth 06/10/16 11:10 Gram Stain - Final Resulted Fluid Peritoneal Fluid 06/10/16 11:10 Body Fluid Culture Resulted Fluid Peritoneal Fluid Pending Imaging Last Impressions Cyst Biopsy Asp-Paracentesis US 06/10/16 0000 Signed Impressions: Service Date/Time: Friday, June 10, 2016 10:49 - CONCLUSION: Uncomplicated ultrasound guided paracentesis. Patient received albumin per protocol. Tyson Farias MD FACR Abdomen Ultrasound 06/06/16 0000 Signed Impressions: Service Date/Time: Monday, June 06, 2016 09:06 - CONCLUSION: 1. There is a sludge in the gallbladder. There is some thickening of the gallbladder wall at 6 mm. This is suggestive of chronic gallbladder disease. No biliary tract obstruction is demonstrated. 2. Heterogeneous lobular liver characteristic for cirrhosis. 3. Moderate ascites. 4. Splenomegaly. Kervin Garza MD Brain MRI 06/04/16 0000 Signed Impressions: Service Date/Time: May 13:22 - CONCLUSION: Small focal hemorrhage identified in the region of the right cerebellum. Linear areas of increased T2 signal identified within the right and left cerebellar peduncle and within the left temporal lobe without corresponding hemorrhage or restricted diffusion. These may represent sequelae of trauma. Brunilda Polanco MD Head CT 06/03/16 0600 Signed Impressions: Service Date/Time: Friday, June 03, 2016 08:05 - CONCLUSION: Abnormal CT scan. MRI may be of benefit to confirm hemorrhage. Tyson Farias MD FACR Chest X-Ray 06/03/16 0000 Signed Impressions: Service Date/Time: Friday, June 03, 2016 02:12 - CONCLUSION: No acute disease. No significant change has occurred. Kervin Garza MD Cervical Spine CT 06/02/16 0000 Signed Impressions: Service Date/Time: Thursday, June 02, 2016 19:04 - CONCLUSION: 1. No fracture or dislocation. 2. Degenerative changes. 3. Calcified atherosclerotic plaque involving the carotid arteries bilaterally. Haider Reinoso Jr., MD Physical Exam HEENT:Normocephalic; atraumatic; no jaundice. CHEST: Congested, scattered rhonchi throughout. CARDIAC: ST ABDOMEN: Soft, ascites present significant but not tense, nontender; hepatosplenomegaly; bowel sounds are present in all four quadrants. EXTREMITIES: Mild BLE edema. CUTTER GAS: Lethargic, confused (Thelma Conte) Assessment and Plan Plan ASSESSMENT: - AMS. Unclear how much of this is related to his TBI and how much is hepatic encephalopathy. Ammonia level is <10. Lactulose 30mL po BID, Xifaxan 550mg po BID. Taking meds by mouth. 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 MELD 13. LFTs stable. - Ascites. Rpt paracentesis 06/10, 11,400cc removed. No growth 24 hours. Started on Lasix, Spironolactone, but now on hold? - Hepatic encephalopathy. Ammonia <10, Unclear how much of his AMS is related to TBI and hepatic encephalopathy or if he was overmedicated prior to arrivalto ER. Much better today. Xifaxan/Lactulose. - Coagulopathy/Thrombocytopenia - Hypokalemia, S/P replacement per primary - Anemia. Pt has hx of iron deficiency anemia and had EGD/Colonoscopy (11/20/15) -----> severe gastritis, gastropathy, duodenal ulcers, esophagitis with irregular z line, normal appearing colonic mucosa. Pathology revealed gastral antral mucosal biopsy with foveolar hyperplasia, telangiectasia and vascular congestion negative for gastritis, gastropathy, metaplasia, and dysplasia, anna stain negative for helicobacter. HH 8.6/ 25.4. - TBI. S/P Fall on 06/02 by EVAC after a fall in his neighbor's yard. Head CT ()----> 1. Questionable small intraparenchymal hematoma involving the right middle cerebellar peduncle. 2. Large right parietal soft tissue hematoma. He was evaluated by neurosurgery for his cerebral contusion and he then had a repeat CT scan on () which revealed a small focal area of high attenuation seen in the right cerebellar peduncle , the cerebellar hemisphere appears this is probably a hemorrhage given it's evolving appearance. The supratentorial brain is unremarkable. No evidence for skull fracture. Brain MRI (06/04/16)----> Small focal hemorrhage identified in the region of the right cerebellum. Linear areas of increased T2 signal identified within the right and left cerebellar peduncle and within the left temporal lobe without corresponding hemorrhage or restricted diffusion. These may represent sequelae of trauma. PLAN: - ELLI, Low Salt - Xifaxan 550mg po BID - Lactulose 30 mL po BID - Cont. PPI - Monitor labs - Supportive care - Unfortunately, lasix/spironolactone was placed on hold. Recommend that these be resumed. - Recommend against routine paracentesis - Further recommendations to follow based on results of above - Pt seen and examined by Dr. Neil and myself and this note is written on his behalf (Thelma Conte) Physician Comments Patient seen and examined Agree with above Continue with current supportive care Monitor labs Unfortunately diuretics were held for some reason and the patient has had positive fluid balance Recommend resuming Lasix 40 mg daily and spironolactone 100 mg daily Monitor I's and O's Increase diuretics cautiously while monitoring labs Continue with low-salt diet Minimize IV fluids We will sign off (Christophe Neil MD) Thelma Conte Jun 11, 2016 09:38 Christophe Neil MD Jun 11, 2016 19:40
[2016-06-11] MEDS: SODIUM CHLORIDE 0.9% FLUSH 5 ML FLUSH FLUSH SCH ×2 (09:56→20:54)
[2016-06-11] MEDS: PHYTONADIONE 5 MG TAB PO SCH (09:56)
[2016-06-11] MEDS: FOLIC ACID 1 MG TAB PO SCH (09:56)
[2016-06-11] MEDS: RIFAXIMIN 550 MG TAB PO SCH ×2 (09:56→20:35)
[2016-06-11] MEDS: LACTULOSE SYRUP 20 GM/30 ML CUP PO SCH ×2 (09:56→20:34)
[2016-06-11] MEDS: THIAMINE INJ 100 MG in SODIUM CHLORIDE 0.9% INJ 100 ML IV SCH (09:57)
[2016-06-11] MEDS: NS + KCL 20 MEQ INJ 1,000 ML IV SCH (13:32)
--- NOTE | 2016-06-11 14:26 | HHI.PR ---
Subjective Remarks Follow-up for encephalopathy, shortness of breath Patient again more confused today, can't answer any questions, appears short of breath, you can hear audible rattling. Objective Vitals Vital Signs Date Time Temp Pulse Resp B/P Pulse Ox O2 Delivery O2 Flow Rate FiO2 06/11/16 11:15 103 06/11/16 08:00 95.4 106 19 127/87 93 06/11/16 08:00 88 Nasal Cannula 2.00 06/11/16 04:14 96.1 105 17 127/92 96 06/11/16 00:31 96.2 109 19 148/94 96 06/10/16 20:00 102 06/10/16 19:17 96.7 104 18 149/91 97 06/10/16 16:00 97.9 88 16 124/80 98 I/O 06/10/16 06/10/16 06/10/16 06/11/16 06/11/16 06/11/16 07:00 15:00 23:00 07:00 15:00 23:00 Intake Total 120 ml 50 ml 698 ml 680 ml Output Total 100 ml 150 ml 150 ml 175 ml Balance 20 ml -100 ml 548 ml 505 ml Intake Oral 120 ml 50 ml 360 ml 120 ml IV Total 338 ml 560 ml Output Urine Total 100 ml 150 ml 150 ml 175 ml # Bowel Movements 0 1 1 Result Diagram: 06/10/16 0640 06/11/16 0515 Objective Remarks General: Chronically ill-appearing male in no acute distress. Very sleepy, restraints in place. Heart: Regular rate and rhythm. No murmur. Lungs: Coarse crackles bilaterally. Abdomen: Soft, more distended again, nontender, positive for superficial veins. Extremities: 1+ edema. Neuro exam: Sleepy, arousable with noxious stimulus, moves extremities, no asterixis noted. Procedures 06/03/16 paracentesis A/P Problem List: (1) Intracranial hemorrhage ICD Code: I62.9 Status: Acute (2) Anemia ICD Code: D64.9 Status: Acute (3) Coagulopathy ICD Code: D68.9 Status: Acute (4) Cirrhosis ICD Code: K74.60 Status: Chronic (5) Hyperammonemia ICD Code: E72.20 Status: Acute (6) Hepatic encephalopathy ICD Code: K72.90 Status: Acute (7) Hypokalemia ICD Code: E87.6 Status: Acute Assessment and Plan 1. Hepatic Encephalopathy: Secondary to liver disease versus intracranial hemorrhage. Ammonia level improved. Patient's mental status has improved somewhat, follow-up EEG, might need to consult neurology. Continue lactulose and rifaximin. 2. Intracranial hemorrhage: MRI report noted, cleared by neurosurgery, likely cerebral peduncle contusion. 3. Coagulopathy: Patient received 2 units of FFP and 2 units PRBCs. Continue phytonadione. Monitor INR. 4. Ascites: Status post ultrasound-guided paracentesis with removal of 13 L fluid. Ascitic fluid analysis is not consistent with SBP. Stop antibiotics. Status post paracentesis again 06/10/16. Looks like accumulating again. Restart Lasix, twice a day, start spironolactone as well. 5. Liver failure-continue lactulose, rifaximin, workup per GI. Diuretics as above. 6. Decreased urine output-nephrology has signed off, not a good candidate for renal replacement therapy. Continue fluids as needed and albumin. Recheck BMP tomorrow 5. DVT prophylaxis: SCDs, [place] pandya. Avoid chemical prophylaxis secondary to intracranial hemorrhage. Patient remains full code, aggressive therapy, palliative care following, has located . Patient has very poor prognosis, he needs to be on hospice. He is still full code but he cannot make any decisions. Problem Qualifiers (1) Anemia: Qualified Code: D64.9 - Anemia, unspecified type (2) Cirrhosis: Qualified Code: K74.60 - Cirrhosis of liver with ascites, unspecified hepatic cirrhosis type Geovanny Hahn MD Jun 11, 2016 14:26
[2016-06-11] MEDS ORDERED: FUROSEMIDE 40 MG/4 ML VIAL IV PUSH ONE ×2 (14:30→21:30)
--- NOTE | 2016-06-11 15:09 | HHI.HCPN ---
Reason for visit a. To assist with evaluation and management of symptoms including: pain, ascites, hepatic encephalopathy, dyspnea b. To assist medical decision maker(s) with: better understanding of current medical conditions; weighing benefits/burdens of medical treatment options; making medical treatment decisions. . Subjective/Interval History Mr. Valladares is a chronically ill appearing 50-year-old male patient. Follow-up visit for, pain, hepatic encephalopathy and ascites - now with shortness of breath. Patient moved from room 16 30/06/1635. He is more confused today, unable to answer simple questions. Speech is soft, non-sensical. Attempting to use TV remote control as telephone and vice versa. He remains in soft wrist restraints secondary to confusion, disruption of medical devices. Appetite remain poor. Patient underwent a ultrasound-guided paracenteses on 06/03/16 with 13,000 ml, yellow fluid removed - fluid analysis is not consistent with SBP. Abdomen remains distended status post ultrasound-guided paracentesis earlier today with 11.4L clear, yellow fluid removed-fluid appears to be reaccumulating today. Fluid sent to lab-results pending. Patient reporting abdominal pain but unable to describe or quantify secondary to his confusion. Oxycodone 5 mg PO is available q6 hour PRN for pain, last dose administered 06/10/16 at 1400. 06/10/16: WBC 4.5, hemoglobin 11.0, hematocrit 33.7, platelets 95 04/10/17: Sodium 143, potassium 3.3, chloride 110, carbon dioxide 20.1, glucose 116, calcium 9.7 BUN: 14, creatinine 0.79, GFR 104 Patient having shortness of breath with audible rattle. Placed on oxygen 2L via nasal cannula with saturations in the low 90s. Furosemide was restarted TWICE a day, on spironolactone as well. [employer]'s report received 06/09/16 identifying Marysol Lynch [phone] as a potential contact, ex-. Palliative care has attempted to contact Ms. Lynch 3 times without return phone calls. Discussed with Ally Whitmore today 06/11/16. She plans to review Trip's report tomorrow to determine if any other family/friends can be identified. If not- will need to consider pursuing " social work advantage" to assist with medical decision-making. Patient prognosis is very. Discussed with Dr. Hahn who agrees the patient needs to be on hospice. . Objective Vital Signs Date Time Temp Pulse Resp B/P Pulse Ox O2 Delivery O2 Flow Rate FiO2 06/11/16 11:15 103 06/11/16 08:00 95.4 106 19 127/87 93 06/11/16 08:00 88 Nasal Cannula 2.00 06/11/16 04:14 96.1 105 17 127/92 96 06/11/16 00:31 96.2 109 19 148/94 96 06/10/16 20:00 102 06/10/16 19:17 96.7 104 18 149/91 97 06/10/16 16:00 97.9 88 16 124/80 98 Intake & Output 06/11/16 06/11/16 07:00 19:00 Intake Total 1258 ml Output Total 325 ml Balance 933 ml Intake Oral 360 ml IV Total 898 ml Output Urine Total 325 ml # Bowel Movements 1 . Physical Exam CONSTITUTIONAL/GENERAL: This is a malnourished, chronically ill middle aged male patient, in no apparent distress. TUBES/LINES/DRAINS: soft restraints cotto catheter, PIV x 1 SKIN: Skin temperature appropriate. Not diaphoretic. Left lower arm swollen, bruised. Abrasions left thigh. Drsg RLQ dry and intact. HEAD: Atraumatic. Normocephalic. EYES: Pupils equal and round, sluggish. ENT: Hearing grossly normal. Nose without bleeding or purulent drainage. NECK: Trachea midline. CARDIOVASCULAR: Regular rate and rhythm without murmurs, gallops, or rubs. No JVD. Peripheral pulses symmetric. RESPIRATORY/CHEST: Short of breath, audible rattle. GASTROINTESTINAL: Abdomen soft, distended. GENITOURINARY: Without palpable bladder distension. Cotto catheter in place MUSCULOSKELETAL: Extremities without clubbing, cyanosis. NEUROLOGICAL: Awake, remains confused. Speech is soft, non-sensical. Patients remain in soft wrist restraints secondary to confusion, disruption of medical devices. PSYCHIATRIC: Difficult to assess due to clinical condition. No anxiety/agitation /hallucinations noted on exam. . . Diagnostic Tests Laboratory Laboratory Tests Test 06/09/16 06/10/16 06/10/16 06/11/16 06:25 06:40 11:10 05:15 White Blood Count 4.3 TH/MM3 4.5 TH/MM3 (4.0-11.0) (4.0-11.0) Red Blood Count 4.05 MIL/MM3 4.17 MIL/MM3 (4.50-5.90) (4.50-5.90) Hemoglobin 10.5 GM/DL 11.0 GM/DL (13.0-17.0) (13.0-17.0) Hematocrit 32.7 % 33.7 % (39.0-51.0) (39.0-51.0) Mean Corpuscular Volume 80.6 FL 80.8 FL (80.0-100.0) (80.0-100.0) Mean Corpuscular Hemoglobin 26.0 PG 26.5 PG (27.0-34.0) (27.0-34.0) Mean Corpuscular Hemoglobin 32.2 % 32.7 % Concent (32.0-36.0) (32.0-36.0) Red Cell Distribution Width 21.6 % 22.5 % (11.6-17.2) (11.6-17.2) Platelet Count 93 TH/MM3 95 TH/MM3 (150-450) (150-450) Mean Platelet Volume 9.7 FL 10.1 FL (7.0-11.0) (7.0-11.0) Neutrophils (%) (Auto) 58.8 % (16.0-70.0) Lymphocytes (%) (Auto) 22.6 % (9.0-44.0) Monocytes (%) (Auto) 16.8 % (0.0-8.0) Eosinophils (%) (Auto) 1.1 % (0.0-4.0) Basophils (%) (Auto) 0.7 % (0.0-2.0) Neutrophils # (Auto) 2.5 TH/MM3 (1.8-7.7) Lymphocytes # (Auto) 1.0 TH/MM3 (1.0-4.8) Monocytes # (Auto) 0.7 TH/MM3 (0-0.9) Eosinophils # (Auto) 0.0 TH/MM3 (0-0.4) Basophils # (Auto) 0.0 TH/MM3 (0-0.2) CBC Comment AUTO DIFF Differential Comment AUTO DIFF CONFIRMED Platelet Estimate LOW (NORMAL) Platelet Morphology Comment NORMAL (NORMAL) Prothrombin Time 15.5 SEC (9.8-11.6) Prothromb Time International 1.4 RATIO Ratio Sodium Level 142 MEQ/L 141 MEQ/L 143 MEQ/L (136-145) (136-145) (136-145) Potassium Level 4.0 MEQ/L 3.9 MEQ/L 3.3 MEQ/L (3.5-5.1) (3.5-5.1) (3.5-5.1) Chloride Level 110 MEQ/L 111 MEQ/L 110 MEQ/L (98-107) (98-107) (98-107) Carbon Dioxide Level 23.0 MEQ/L 22.2 MEQ/L 20.1 MEQ/L (21.0-32.0) (21.0-32.0) (21.0-32.0) Anion Gap 9 MEQ/L (5-15) 8 MEQ/L (5-15) 13 MEQ/L (5-15) Blood Urea Nitrogen 16 MG/DL (7-18) 16 MG/DL (7-18) 14 MG/DL (7-18) Creatinine 0.94 MG/DL 0.81 MG/DL 0.79 MG/DL (0.60-1.30) (0.60-1.30) (0.60-1.30) Estimat Glomerular Filtration 85 ML/MIN (>89) 101 ML/MIN 104 ML/MIN Rate (>89) (>89) Random Glucose 84 MG/DL 86 MG/DL 116 MG/DL (74-106) (74-106) (74-106) Calcium Level 9.4 MG/DL 9.4 MG/DL 9.7 MG/DL (8.5-10.1) (8.5-10.1) (8.5-10.1) Ammonia LESS THAN 10 MCMOL/L (11-32) Total Bilirubin 1.8 MG/DL (0.2-1.0) Aspartate Amino Transf 40 U/L (15-37) (AST/SGOT) Alanine Aminotransferase 18 U/L (12-78) (ALT/SGPT) Alkaline Phosphatase 58 U/L (45-117) Total Protein 7.4 GM/DL (6.4-8.2) Albumin 3.2 GM/DL (3.4-5.0) Peritoneal Fluid WBC 58 /MM3 (0-10) Peritoneal Fluid RBC 19 /MM3 (0-0) Peritoneal Fluid Neutrophils 18 % Peritoneal Fluid Lymphocytes 51 % Peritoneal Fluid Monocytes 21 % Peritoneal Fluid Basophils 1 % Peritoneal Fluid Histiocytes 9 % . Result Diagram: 06/10/16 0640 06/11/16 0515 Microbiology Microbiology Date/Time Procedure Status Source Growth 06/10/16 11:10 Gram Stain - Final Resulted Fluid Peritoneal Fluid 06/10/16 11:10 Body Fluid Culture - Preliminary Resulted Fluid Peritoneal Fluid NO GROWTH IN 24 HOURS. . Imaging Last 72 hours Impressions Cyst Biopsy Asp-Paracentesis US 06/10/16 0000 Signed Impressions: Service Date/Time: Wednesday, June 10, 2016 10:49 - CONCLUSION: Uncomplicated ultrasound guided paracentesis. Patient received albumin per protocol. Tyson Farias MD FACR . Procedures 06/03/16: Paracentesis 06/10/16: Paracentesis . . Assessment and Plan Disease Oriented Problem List: (1) Hallucination (2) Acute kidney injury (3) Thrombocytopenia (4) Tobacco abuse (5) Alcohol withdrawal (6) Abdominal pain (7) Uncontrolled hypertension (8) Normochromic normocytic anemia (9) GERD (gastroesophageal reflux disease) (10) Ascites of liver (11) Cerebral contusion (12) Encephalopathy chronic (13) Anemia (14) Coagulopathy (15) Intracranial hemorrhage (16) Hepatic encephalopathy (17) Hypokalemia (18) Cirrhosis (19) Hyperammonemia (20) Oliguria Symptom Scale: (1) Pain 0-10 Scale: Unable to quantify Comment: Patient exhibits no signs or symptoms of pain on exam. Possible cause of pain includes ascites, recent fall, abrasions, contusions, invasive lines, soft restraint, immobility, bedbound status. Oxycodone 5mg PO is available q6 hours PRN, none required over the past 24 hours. Palliative Care will monitor PRN requirements and make recommendations as indicated. . (2) Ascites 0-10 Scale: Unable to quantify Comment: He underwent a ultrasound-guided paracenteses on 06/03/16 with 13,000 ml, yellow fluid removed. Peritoneal fluid culture negative. Ascitic fluid analysis is not consistent with SBP. Fluid has reaccumulated and patient underwent another ultrasound-guided paracentesis on 06/10/16 with 11,400mL's of clear, yellow fluid removed. Fluid was sent to lab for ordered studies. . (3) Hepatic encephalopathy 0-10 Scale: Unable to quantify Comment: Ammonia level on admission 06/02/1734. Ammonia level < 10 today. Lactulose being held. Continue Rifaximin (4) Dyspnea 0-10 Scale: Unable to quantify Comment: Patient having shortness of breath with audible rattle. Placed on oxygen 2L via nasal cannula with saturations in the low 90s. Furosemide was restarted TWICE a day, on spironolactone as well. Pertinent Non-Medical Issues Psychosocial: Per review of previous notes: Patient reports that he lives with his girlfriend but it is worth noting that he cannot remember his girlfriend's name or number. He has a 12th grade education. He says he has 2 children from her previous relationship. 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 He denies a history of legal problems. Denies any access to guns or firearms. Spiritual: Per review of previous notes: Patient reports that he lives with his girlfriend but it is worth noting that he cannot remember his girlfriend's name or number. He has a 12th grade education. He says he has 2 children from her previous relationship. 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 He denies a history of legal problems. Denies any access to guns or firearms. Legal: Pending identification of legal medical decision maker. Ethical issues impacting care: Case management consult placed requesting [employer] reports . Important Contacts Tyesha Palomares, friend: [phone]-PHONE NUMBER DISCONNECTED . Prognosis Patient is a cachectic 50 year old who has been hospitalized 5 times since November. 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 Currently admitted with status post fall, encephalopathic secondary to liver disease versus intracranial hemorrhage. Coagulopathy. Ascites. Status post ultrasound-guided paracentesis with removal of 13 L fluid. Nephrology now consulted for hypokalemia and decreased urine output. Prognosis poor-patient is appropriate for hospice. . Code Status: Full Code Plan * FULL CODE * Decision-making: Legal health care proxy is unknown at this time-[employer] report pending. * No family/friends known. Tyesha Palomares phone number has been disconnected. * Goals: Aggressive goals-pending identification of legal medical decision- making * Discussed with charge nurse as well as bedside nurse, Odilia. * [employer]'s report received 06/09/16 identifying Marysol Lynch [phone] as a potential contact, ex-. Palliative care has attempted to contact Ms. Lynch 3 times without return phone calls. Discussed with Ally Whitmore today 06/11/16. She plans to review [employer]'s report tomorrow to determine if any other family/friends can be identified. If not- will need to consider pursuing " social work advantage" to assist with medical decision-making. * Discussed with Dr. Hahn who agrees the patient is hospice appropriate * Symptom managementascites:He underwent a ultrasound-guided paracenteses on with 13,000 ml, yellow fluid removed. Peritoneal fluid culture negative. Ascitic fluid analysis is not consistent with SBP. Fluid has reaccumulated and patient underwent another ultrasound-guided paracentesis on 06/10/16 with 11,400mL 's of clear, yellow fluid removed-fluid appears to be reaccumulating today. Fluid was sent to lab for ordered studies. * Symptom managementhepatic encephalopathy: Ammonia level on admission 1734. Ammonia level < 10 yesterday 06/09/16. Normal EEG 06/09/16. Remains on lactulose and rifaximin. * Symptom managementpain: Patient exhibits no signs or symptoms of pain on exam. Possible cause of pain includes ascites, recent fall, abrasions, contusions, invasive lines, soft restraint, immobility, bedbound status. Oxycodone 5mg PO is available q6 hours PRN, none required over the past 24 hours. Palliative Care will monitor PRN requirements and make recommendations as indicated. * Symptom managementdyspnea: Patient having shortness of breath with audible rattle. Placed on oxygen 2L via nasal cannula with saturations in the low 90s. Furosemide was restarted TWICE a day, on spironolactone as well. * Palliative care will continue to follow this patient throughout his hospitalization to establish trust, assist with symptom management and clarification of medical treatment goals. . Attestation To help prompt me to consider important information that might be impacting today's encounter and assessment, information from prior notes written by myself or my colleagues may have been "brought forward" into today's note. My signature on this note, however, is an attestation that I personally performed the exam, history, and/or decision-making noted today, and, unless otherwise indicated, the interactions with patient, family, and staff as well as the review of records all occurred today. I also attest that the listed assessment and stated plan reflect my best clinical judgment today based on the combination of historical information, prior notes, and today's exam/ interactions. When time spent is documented, it refers only to time spent today by the signer, or if indicated, combined time spent today by collaborating physician/nurse practitioner. . Jayne Lopez Jun 11, 2016 15:09
[2016-06-11] MEDS ORDERED: RESP: ALBUTEROL 2.5 MG/IPRATROPIUM 0.5 MG NEB (PRN) NEB (15:45)
[2016-06-11] MEDS: SPIRONOLACTONE 50 MG TAB PO SCH (18:00)
[2016-06-11] MEDS: FUROSEMIDE 40 MG/4 ML VIAL IV PUSH SCH ×2 (18:00→18:40)
[2016-06-11] MEDS ORDERED: SODIUM BICARBONATE 8.4% INJ 50 MEQ/50 ML SYR ONE (18:50)
--- NOTE | 2016-06-11 19:01 | HHI.FPPN ---
Addendum to progress note ADDENDUM Reason for addendum: Additonal documentation Additional information FP HALIC[facility] NOTE Subjective: Team overheard page overhead at ~6:15pm for [facility] on 3rd floor [facility]. Family practice team was not called for Hal[facility]. Limited information about the patient was available. Pt had end-stage renal disease, hx of alcoholism, admitted for AMS after a fall. He had paracentesis yesterday with 11L fluid removed, per nurse. Halicat was called after desaturation to 73%, improved to 80s with non-rebreather. Pulse was 110s. Pt was altered and unable to answer questions. He was already in four point soft restraints for disorientation. As team reported to bedside, actions were already underway by charge nurse and staff to provide oxygen resuscitation, monitor vitals, and transfer pt from 6th floor to 3rd floor Objective Pt was altered, will follow commands such as squeeze hands and wiggle toes, but seemed disoriented and kept attempting to remove mask. Lungs had significant inspiratory and expiratory harsh gurgling sounds- likely harsh transmitted upper airway noises. Heart was tachycardic, regular rhythm, no murmurs. Abd exam was mildly distended, but soft without masses or guarding. Skin was warm and dry without noticable rashes or bleeding. Danielle was in place with minimal yellow, clear urine in bag Pt would follow commands, but did not respond verbally to questioning. When asked if he would want to be intubated he did not appear to understand the question. Assessment/Plan - ABG was ordered, pH 7.4, CO2 elevated, 1 amp of bicarb was ordered. - Ordered stat CXR AP, Blood Culture x2, U/A, CRP, Coag Profile, PO4, Mg, CMP, CBC - Dr. Hahn, attending, was notified of plan, and consulted Dr. Kim, physician executive - Pt was stable when FP team left floor - Follow up labs and care will be deferred to primary team SDW: Dr Arenas, Jaycee Curry MD R1 Jun 11, 2016 19:01 Jaycee Epstein MD R1 Jun 11, 2016 19:01
--- NOTE | 2016-06-11 19:26 | RADRPT ---
EXAM DATE/TIME: 06/11/2016 19:14 [facility] COMPARISON: CHEST SINGLE AP, June 03, 2016, 2:12. INDICATIONS : Patient has cough and trouble breathing. MEDICAL HISTORY : Hypertension. SURGICAL HISTORY : None. ENCOUNTER: Subsequent ACUITY: 1 month PAIN SCORE: 0/10 LOCATION: Bilateral chest FINDINGS: A single view of the chest demonstrates the lungs to be symmetrically aerated without evidence of mas s, infiltrate or effusion. The cardiomediastinal contours are unremarkable. Osseous structures are intact. CONCLUSION: No evidence of acute cardiopulmonary disease. Jann Jane MD on June 11, 2016 at 19:24 Board Certified Radiologist. This report was verified electronically.
[2016-06-11 20:11] LABS: AUTOMATED NEUTROPHIL # 20.9 TH/MM3 (1.8-7.7); BASOPHIL # 0.1 TH/MM3 (0-0.2); BASOPHIL % 0.3 % (0.0-2.0); HEMATOCRIT 40.6 % (39.0-51.0); HEMO FLAGS DIFF FINAL; LYMPH % 2.4 % (9.0-44.0); LYMPHOCYTE # 0.6 TH/MM3 (1.0-4.8); MEAN CELL VOLUME 80.4 FL (80.0-100.0); MEAN CORPUSCULAR HEMOGLOBIN 26.5 PG (27.0-34.0); MEAN CORPUSCULAR HGB CONC 32.9 % (32.0-36.0); MONO % 6.1 % (0.0-8.0); NEUT % 91.2 % (16.0-70.0); PLATELET COUNT 120 TH/MM3 (150-450); RED BLOOD COUNT 5.05 MIL/MM3 (4.50-5.90); RED CELL DISTRIBUTION WIDTH 23.6 % (11.6-17.2)
[2016-06-11 20:32] LABS: ANION GAP 11 MEQ/L (5-15); APTT (PATIENT) 32.7 SEC (24.3-30.1); AST (GOT) 27 U/L (15-37); BLOOD UREA NITROGEN 16 MG/DL (7-18); CHLORIDE 110 MEQ/L (98-107); GLOMERULAR FILTRATION RATE 82 ML/MIN (>89); INTERNATIONAL NORMALIZED RATIO 1.5 RATIO; MAGNESIUM 1.5 MG/DL (1.5-2.5); POTASSIUM 3.5 MEQ/L (3.5-5.1); PROTHROMBIN TIME - PATIENT 17.2 SEC (9.8-11.6); SODIUM (NA) 144 MEQ/L (136-145)
[2016-06-11 20:35] LABS: ALKALINE PHOSPHATASE 71 U/L (45-117); ALT (GPT) 18 U/L (12-78); TOTAL BILIRUBIN ADULT 3.3 MG/DL (0.2-1.0)
[2016-06-11] MEDS: RESP: ALBUTEROL 2.5 MG/IPRATROPIUM 0.5 MG NEB (SCH) NEB (21:30)
[2016-06-11] MEDS ORDERED: ETOMIDATE 20 MG/10 ML VIAL ONE (21:38)
[2016-06-11] MEDS ORDERED: SUCCINYLCHOLINE CHLORIDE 200 MG/10 ML VIAL ONE (21:38)
[2016-06-11] MEDS ORDERED: MIDAZOLAM 100 MG/NS 100 ML DRIP Premix IV SCH (22:30)
--- NOTE | 2016-06-11 22:41 | PD.CONS ---
HPI Service Critical Care Medicine Consult Requested By Primary Care Physician No Primary Care Physician History of Present Illness Mr. Valladares is a male with a past medical history of anxiety, depression, GERD, pleurisy, alcohol abuse, and hepatitis C who presented to the emergency room on 06/02/16 for evaluation of altered mental status and fall. Head CT showed questionable small intraparenchymal hematoma involving the right middle cerebellar peduncle. Large right parietal soft tissue hematoma. No intervention was recommended at that time. June 11, 2016 around 6:00 pm patient was transferred to ICU due to respiratory distress and altered mental status. His respirations became worse requiring intubation. Critical care medicine was consulted for management of ventilator. Review of Systems ROS Unable to obtain patient is sedated and intubated Past Family Social History Allergies: Coded Allergies: Morphine (Verified Allergy, Unknown, 06/02/16) Past Medical History Anxiety Depression Pleurisy Gastroesophageal reflux disease Alcohol abuse Hepatitis C Past Surgical History none Reported Medications Reported Meds & Active Scripts Active Reported Prilosec (Omeprazole Magnesium) 10 Mg Pow 10 Mg PO HS Active Ordered Medications Current Medications Medications (Trade) Dose Ordered Sig/[place] Route PRN Reason Start Time Stop Time Status Last Admin Dose Admin IV Flush (NS Flush) 2 ml UNSCH PRN FLUSH FLUSH AFTER USING IV ACCESS 06/02/16 20:15 IV Flush (NS Flush) 2 ml BID FLUSH 06/02/16 21:00 06/11/16 20:54 Naloxone HCl (Narcan Inj) 0.4 mg UNSCH PRN IV SEE LABEL COMMENTS 06/02/16 20:15 Phytonadione (Mephyton) 5 mg DAILY PO 06/03/16 09:00 06/11/16 09:56 Oxycodone HCl (Roxicodone) 5 mg Q6H PRN PO PAIN SCALE 5 TO 10 06/03/16 11:15 06/10/16 14:01 Lactulose (Lactulose Liq) 30 ml BID PO 06/04/16 21:00 06/11/16 09:56 Rifaximin (Xifaxan) 550 mg BID PO 06/04/16 21:00 06/11/16 09:56 Folic Acid (Folate) 1 mg DAILY PO 06/07/16 09:00 06/11/16 09:56 Spironolactone (Aldactone) 100 mg DAILY PO 06/10/16 09:00 Hold 06/10/16 09:43 Pantoprazole Sodium (Protonix) 40 mg DAILY PO 06/12/16 09:00 Thiamine HCl (Vitamin B1) 100 mg DAILY PO 06/12/16 09:00 Furosemide (Lasix Inj) 40 mg BID@,18 IV PUSH 06/11/16 18:00 06/11/16 18:40 Spironolactone 50 mg 50 mg BID@,18 PO 06/11/16 18:00 06/11/16 18:00 Midazolam HCl (Versed Inj) 100 ml @ 0 mls/hr TITRATE IV 06/11/16 22:30 Family History Noncontributory Social History Unable to obtain patient is intubated Physical Exam Vital Signs Vital Signs Date Time Temp Pulse Resp B/P Pulse Ox O2 Delivery O2 Flow Rate FiO2 06/11/16 22:05 97 100 06/11/16 19:00 99 100 06/11/16 16:00 107 24 134/93 93 06/11/16 16:00 107 24 134/93 93 06/11/16 12:00 96.0 101 19 126/82 94 06/11/16 11:15 103 06/11/16 08:00 95.4 106 19 127/87 93 06/11/16 08:00 88 Nasal Cannula 2.00 06/11/16 04:14 96.1 105 17 127/92 96 06/11/16 00:31 96.2 109 19 148/94 96 Physical Exam GENERAL: Well-nourished, well-developed patient. SKIN: Warm and dry. HEAD: Normocephalic. EYES: No scleral icterus. No injection or drainage. NECK: Supple, trachea midline. No JVD or lymphadenopathy. CARDIOVASCULAR: Regular rate and rhythm without murmurs, gallops, or rubs. RESPIRATORY: Breath sounds equal bilaterally. No accessory muscle use. GASTROINTESTINAL: Abdomen soft, ascites MUSCULOSKELETAL: No cyanosis, or edema. BACK: Nontender without obvious deformity. No CVA tenderness. Laboratory Laboratory Tests Test 06/11/16 06/11/16 06/11/16 05:15 19:45 19:48 Sodium Level 143 144 Potassium Level 3.3 3.5 Chloride Level 110 110 Carbon Dioxide Level 20.1 23.0 Anion Gap 13 11 Blood Urea Nitrogen 14 16 Creatinine 0.79 0.97 Estimat Glomerular Filtration 104 82 Rate Random Glucose 116 117 Calcium Level 9.7 10.2 Prothrombin Time 17.2 Prothromb Time International 1.5 Ratio Activated Partial 32.7 Thromboplast Time Phosphorus Level 4.1 Magnesium Level 1.5 Total Bilirubin 3.3 Aspartate Amino Transf 27 (AST/SGOT) Alanine Aminotransferase 18 (ALT/SGPT) Alkaline Phosphatase 71 C-Reactive Protein 4.90 Total Protein 8.3 Albumin 3.6 White Blood Count 23.0 Red Blood Count 5.05 Hemoglobin 13.3 Hematocrit 40.6 Mean Corpuscular Volume 80.4 Mean Corpuscular Hemoglobin 26.5 Mean Corpuscular Hemoglobin 32.9 Concent Red Cell Distribution Width 23.6 Platelet Count 120 Mean Platelet Volume 10.3 Neutrophils (%) (Auto) 91.2 Lymphocytes (%) (Auto) 2.4 Monocytes (%) (Auto) 6.1 Eosinophils (%) (Auto) 0.0 Basophils (%) (Auto) 0.3 Neutrophils # (Auto) 20.9 Lymphocytes # (Auto) 0.6 Monocytes # (Auto) 1.4 Eosinophils # (Auto) 0.0 Basophils # (Auto) 0.1 CBC Comment DIFF FINAL Differential Comment Date/Time Procedure Status Source Growth 06/11/16 19:45 Aerobic Blood Culture Received Blood Peripheral Pending 06/11/16 19:45 Anaerobic Blood Culture Received Blood Peripheral Pending 06/10/16 11:10 Gram Stain - Final Resulted Fluid Peritoneal Fluid 06/10/16 11:10 Body Fluid Culture - Preliminary Resulted Fluid Peritoneal Fluid NO GROWTH IN 24 HOURS. Result Diagram: 06/11/16194706/11/16 194 Imaging Last 24 hours Impressions Chest X-Ray 06/11/16 0000 Signed Impressions: Service Date/Time: June 19:14 - CONCLUSION: No evidence of acute cardiopulmonary disease. Jann Jane MD Assessment and Plan Problem List: (1) Ascites ICD Code: R18.8 Status: Acute (2) Cerebral contusion ICD Code: S06.339A Status: Acute (3) Encephalopathy chronic ICD Code: G93.49 Status: Acute (4) Cirrhosis ICD Code: K74.60 Status: Chronic Assessment and Plan Respiratory failure - Intubated for airway protection - Continue mechanical ventilation until neurologically improved - Continue doing - Broad-spectrum antibiotics - Follow-up sputum culture and x-ray Anemia - Monitor H&H - Transfuse for hemoglobin less than 7 Liver cirrhosis - Alcohol use disorder - Supportive care - tube feeds Ascites - Due to above - Paracenteses per GI Hepatic encephalopathy Continue xafaxan and lactulose DVT GI prophylaxis Teds SCDs Protonix Critical Care: The total critical care time was 35 minutes. Time to perform other separately billable procedures was not included in the critical care time. Problem Qualifiers (1) Ascites: Qualified Code: R18.8 - Other ascites (2) Cerebral contusion: Qualified Code: S06.319A - Cerebral contusion, right, with loss of consciousness of unspecified duration, initial encounter (3) Cirrhosis: Qualified Code: K74.60 - Cirrhosis of liver with ascites, unspecified hepatic cirrhosis type Jeffery Kim MD Jun 11, 2016 22:41
[2016-06-11 22:48] LABS: BLOOD GAS BASE EXCESS -6.6 mmol/L (-2-2); BLOOD GAS CARBOXYHEMOGLOBIN 1.9 % (0-4); BLOOD GAS HCO3 17 mmol/L (22-26); BLOOD GAS METHEMOGLOBIN 0.8 % (0-2); BLOOD GAS O2 HGB SATURATION 84 % (90-100); BLOOD GAS OXYGEN CONTENT 14.5 Vol % (12.0-20.0); BLOOD GAS PCO2 24 mmHg (38-42); BLOOD GAS PO2 55 mmHg (61-120); BLOOD GAS TOTAL HGB 12.3 G/DL (12.0-16.0); TEMP CORR TO 98.6
[2016-06-11 22:49] LABS: DRAW SITE RT RADIAL; LITER FLOW 15 L/M; NUMBER OF ARTERIAL PUNCTURES 1; STAT YES
[2016-06-11] MEDS ORDERED: CEFEPIME INJ 1,000 MG in SODIUM CHLORIDE 0.9% INJ 100 ML IV SCH (23:00)
[2016-06-11] MEDS ORDERED: VANCOMYCIN INJ 1,000 MG in SODIUM CHLOR 0.9% 250 ML INJ 250 ML IV ONE (23:00)
[2016-06-11] MEDS ORDERED: Vancomycin Consult Pharmacy 1 EA OTHER SCH (23:00)
--- NOTE | 2016-06-11 23:12 | HHI.PR ---
Addendum to Inpatient Note Addendum Reason: Additional Documentation Additional Information Called by RN to evaluate patient who was just transferred to the ICU for respiratory distress. Patient received 40mg of Lasix and 1 amp of bicarb prior to transport. When I examined the patient he was very tachypneic on bipap, RR 38, HR 106. Lung sounds rhonchi throughout. Im not sure of his mental status prior to the Halicat but he seems he may have aspirated. Duoneb was given while I was in the room. Patient did not diurese from the lasix given, bun/creatine normal. Patient was not improving so I placed a call to the executive director of nursing, Dr. Kim. Dr Kim will intubate patient and resume care at this point. Discussed case with Mary Padgett Jun 11, 2016 23:12
[2016-06-11 23:34] LABS: BLOOD GAS BASE EXCESS -5.9 mmol/L (-2-2); BLOOD GAS CARBOXYHEMOGLOBIN 1.3 % (0-4); BLOOD GAS HCO3 18 mmol/L (22-26); BLOOD GAS METHEMOGLOBIN 0.6 % (0-2); BLOOD GAS O2 HGB SATURATION 98 % (90-100); BLOOD GAS OXYGEN CONTENT 17.2 Vol % (12.0-20.0); BLOOD GAS PCO2 33 mmHg (38-42); BLOOD GAS PO2 207 mmHg (61-120); BLOOD GAS TOTAL HGB 12.2 G/DL (12.0-16.0); CRITICAL VALUE NO; OXYGEN DEVICE VENTILATOR; TEMP CORR TO 98.6
[2016-06-11 23:35] LABS: DRAW SITE RT RADIAL; FIO2 100 %; NUMBER OF ARTERIAL PUNCTURES 1; STAT NO; ULNAR PULSE PRESENT; VENT SETTINGS A/C14/500/PEEP5
[2016-06-12] VITALS (12 sets, daily range): BP systolic 96–117; BP diastolic 57–79; PULSE 86–102; RESP 22–31; TEMP 96–98; O2SAT 96–100
[2016-06-12] MEDS: VANCOMYCIN INJ 1,100 MG in SODIUM CHLOR 0.9% 250 ML INJ 250 ML IV SCH ×2 (00:06→12:46)
[2016-06-12] MEDS: RESP: ALBUTEROL 2.5 MG/IPRATROPIUM 0.5 MG NEB (SCH) NEB ×4 (01:18→21:58)
[2016-06-12] MEDS: ALBUMIN HUMAN 5% 25 GM/500 ML BOTTLE IV SCH ×2 (03:11→14:35)
[2016-06-12 03:42] LABS: BACTERIA, URINE RARE /hpf; BLOOD, URINE MOD (NEG); COMMENT (UR) CATH-CULTURE IND; CULTURE IF INDICATED CATH CULTURE IND; GLUCOSE,URINE NEG (NEG); KETONE, URINE NEG (NEG); MUCUS URINE FEW /lpf (OCC); NITRITE,URINE NEG (NEG); PH, URINE 5.5 (5.0-8.5); URIC ACID CRYSTALS, URINE MANY /hpf; URINE COLOR YELLOW (YELLW/STRAW)
[2016-06-12 04:58] LABS: BICARBONATE 21.9 MEQ/L (21.0-32.0); POTASSIUM 3.6 MEQ/L (3.5-5.1)
[2016-06-12] MEDS ORDERED: PANTOPRAZOLE SOD 40 MG DELAYED RELEASE TAB PO SCH (09:00)
[2016-06-12] MEDS: SPIRONOLACTONE 50 MG TAB PO SCH ×2 (09:00→18:24)
--- NOTE | 2016-06-12 09:13 | HHI.CCPN ---
Subjective Remarks/Hospital Course Mr. Valladares is a male with a past medical history of anxiety, depression, GERD, pleurisy, alcohol abuse, and hepatitis C who presented to the emergency room on 06/02/16 for evaluation of altered mental status and fall. Head CT showed questionable small intraparenchymal hematoma involving the right middle cerebellar peduncle. Large right parietal soft tissue hematoma. No intervention was recommended at that time. June 11, 2016 around 6:00 pm patient was transferred to ICU due to respiratory distress and altered mental status. His respirations became worse requiring intubation. Critical care medicine was consulted for management of ventilator. Subjective /3-Sedation it was noted the patient had copious amount of gastric (bilious, greenish )secretions in his lungs obvious aspiration. Empiric antibiotics were initiated last evening. Sputum culture resulted preliminary yeast with pseudohyphae. Antifungal will be initiated. PF ratio greater than 400, will decrease FiO2. Objective Vital Signs Date Time Temp Pulse Resp B/P Pulse Ox O2 Delivery O2 Flow Rate FiO2 06/12/16 08:36 100 40 06/12/16 07:00 Mechanical Ventilator 06/12/16 04:00 96.0 98 31 115/73 06/11/16 08:00 2.00 Intake and Output 06/11/16 06/11/16 06/12/16 08:00 16:00 00:00 Intake Total 680 ml Output Total 175 ml Balance 505 ml Result Diagram: 06/11/16 1948 06/12/16 0331 Other Results Laboratory Tests Test 06/11/16 06/11/16 18:30 23:21 Blood Gas Puncture Site RT RADIAL RT RADIAL Blood Gas Patient Temperature 98.6 98.6 Blood Gas HCO3 17 mmol/L 18 mmol/L (22-26) (22-26) Blood Gas Base Excess -6.6 mmol/L -5.9 mmol/L (-2-2) (-2-2) Blood Gas Oxygen Saturation 84 % (90-100) 98 % (90-100) Arterial Blood pH 7.46 7.37 (7.380-7.420) (7.380-7.420) Arterial Blood Partial 24 mmHg (38-42) 33 mmHg (38-42) Pressure CO2 Arterial Blood Partial 55 mmHg 207 mmHg Pressure O2 (61-120) (61-120) Arterial Blood Oxygen Content 14.5 Vol % 17.2 Vol % (12.0-20.0) (12.0-20.0) Arterial Blood 1.9 % (0-4) 1.3 % (0-4) Carboxyhemoglobin Arterial Blood Methemoglobin 0.8 % (0-2) 0.6 % (0-2) Blood Gas Hemoglobin 12.3 G/DL 12.2 G/DL (12.0-16.0) (12.0-16.0) Oxygen Delivery Device Non-Rebreathing VENTILATOR Mask Blood Gas Liter Flow 15 L/M Blood Gas Ventilator Setting A/C14/500/PEEP5 Blood Gas Inspired Oxygen 100 % Imaging Last Impressions Chest X-Ray 06/11/16 0000 Signed Impressions: Service Date/Time: June 19:14 - CONCLUSION: No evidence of acute cardiopulmonary disease. Jann Jane MD Cyst Biopsy Asp-Paracentesis US 06/10/16 0000 Signed Impressions: Service Date/Time: Friday, June 10, 2016 10:49 - CONCLUSION: Uncomplicated ultrasound guided paracentesis. Patient received albumin per protocol. Tyson Farias MD FACR Abdomen Ultrasound 06/06/16 0000 Signed Impressions: Service Date/Time: Monday, June 06, 2016 09:06 - CONCLUSION: 1. There is a sludge in the gallbladder. There is some thickening of the gallbladder wall at 6 mm. This is suggestive of chronic gallbladder disease. No biliary tract obstruction is demonstrated. 2. Heterogeneous lobular liver characteristic for cirrhosis. 3. Moderate ascites. 4. Splenomegaly. Kervin Garza MD Brain MRI 06/04/16 0000 Signed Impressions: Service Date/Time: May 13:22 - CONCLUSION: Small focal hemorrhage identified in the region of the right cerebellum. Linear areas of increased T2 signal identified within the right and left cerebellar peduncle and within the left temporal lobe without corresponding hemorrhage or restricted diffusion. These may represent sequelae of trauma. Brunilda Polanco MD Head CT 06/03/16 0600 Signed Impressions: Service Date/Time: Friday, June 03, 2016 08:05 - CONCLUSION: Abnormal CT scan. MRI may be of benefit to confirm hemorrhage. Tyson Farias MD FACR Cervical Spine CT 06/02/16 0000 Signed Impressions: Service Date/Time: Thursday, June 02, 2016 19:04 - CONCLUSION: 1. No fracture or dislocation. 2. Degenerative changes. 3. Calcified atherosclerotic plaque involving the carotid arteries bilaterally. Haider Reinoso Jr., MD Last 24 hours Impressions Chest X-Ray 06/11/16 0000 Signed Impressions: Service Date/Time: June 19:14 - CONCLUSION: No evidence of acute cardiopulmonary disease. Jann Jane MD Objective Remarks GENERAL: Critically ill-appearing male sedated and intubated patient. SKIN: Warm and dry. HEAD: Normocephalic. EYES: No scleral icterus. No injection or drainage. NECK: Supple, trachea midline. No JVD or lymphadenopathy. Orotracheally intubated CARDIOVASCULAR: Regular rate and rhythm without murmurs,S1,S2 no gallops, or rubs. RESPIRATORY: Breath sounds equal bilaterally. Coarse breath sounds throughout lung hubbard. Mechanical ventilation GASTROINTESTINAL: Abdomen soft, protuberant with noted ascites MUSCULOSKELETAL: No cyanosis, or edema. NEURO: GCS 11 T on sedation vacation, following commands movement of extremities 4. Currently on Midazolam infusion. Procedures 06/03/16 paracentesis Urinary Catheter: Yes Vascular Central Line Catheter: No A/P Problem List: (1) Ascites ICD Code: R18.8 Status: Acute (2) Cerebral contusion ICD Code: S06.339A Status: Acute (3) Encephalopathy chronic ICD Code: G93.49 Status: Acute (4) Cirrhosis ICD Code: K74.60 Status: Chronic Assessment and Plan Plan by systems: Neurologic: Hepatic encephalopathy Hyperammonemia EtOH use disorder ICH -ICH cleared by neurosurgery, MRI most likely cerebral peduncle contusion -Continue rifaximin and lactulose -Continue thiamine and folate -Neurochecks per ICU protocol -GCS 11 T on sedation vacation -DC midazolam infusion changed to propofol infusion -DC PO narcotics -Continue thiamine and folate Respiratory: Acute hypoxic/hypercapnic respiratory failure Aspiration pneumonia -Maintain O2 sat greater than 92%, wean FiO2 less than 50% -Maintain tidal volume 6-8 cc/kilogram -Continue mechanical ventilation until neurologically improved -Repeat chest x-ray follow-up results -PF ratio greater than 400, continue to monitor -Mechanical vent settings 14/500/5/0.50 -ABG 7.37/33/207/18/-5.9, will decrease rate -Consider bronchoscopy -Empiric antibiotics initiated Cardiovascular: -Normotensive -Maintain MAP greater than 65mmHg Renal: -No acute issues -Lasix, spironolactone secondary to ESLD -Maintain Danielle catheter, monitor hourly urine output -- Strict I/Os FEN/GI: End-stage liver disease Liver Cirrhosis Ascites Severe protein calorie malnutrition -Meld score 13 -GI signed off, paracentesis 06/03- 13 liters, 06/10-11 L, no scheduled paracentesis recommended per GI -Will resume Rocephin for SBT prophylaxis -Nutrition consult -Insert OGT, follow-up KUB, begin tube feeds -Continue albumin twice a day, Lasix ,spironolactone -Obtain ammonia level -Supportive care-Palliative medicine on board Heme/ID: Anemia Thrombocytopenia Leukocytosis Hepatitis Coagulopathy -WBC 23, continue to monitor -Monitor CBC, coags, INR 1.5, platelet 120 -Continue vitamin K -Transfuse for hemoglobin less than 7, platelet count less than 50,000 -Vancomycin and Zosyn initiated empiric antibiotics -Sputum culture / -yeast with pseudohyphae. Initiate Diflucan -Blood cultures, urine cultures- F/U results -strep pneumo, legionella antigen-pending -Rocephin-SBT prophylaxis Endocrine: -Monitor blood glucose per ICU protocol -Sliding-scale insulin low -- SSI Prophylaxis: GI Prophylaxis Protonix DVT Prophylaxis -- SCDs No pharmacological DVT prophylaxis at this time Lines: Peripheral IVs 2. Central line only if indicated Dispo: Discussed with DIVER ASSISTANT at bedside. Spoke with family at bedside with patient's mother, brother and daughter. Updated them on the patient's status since admission to the hospital, prognosis is poor. The family scheduled to meet with palliative care medicine today to discuss goals of treatment/care. This patient remains critically ill with one or more organ systems which are or may become a threat to life. I have spent in excess of 60 minutes discontinuously in the care and management of this patient. This time is exclusive of procedures, and includes, but is not limited to, evaluation of the patient, review of the medical record, discussions with family, consultants, nursing staff, or respiratory therapy, and documentation in the medical record. Physician Suma Hernandez Problem Qualifiers (1) Ascites: Qualified Code: R18.8 - Other ascites (2) Cerebral contusion: Qualified Code: S06.319A - Cerebral contusion, right, with loss of consciousness of unspecified duration, initial encounter (3) Cirrhosis: Qualified Code: K74.60 - Cirrhosis of liver with ascites, unspecified hepatic cirrhosis type Suma Hernandez MD Jun 12, 2016 09:13
--- NOTE | 2016-06-12 10:13 | RADRPT ---
EXAM DATE/TIME: 06/12/2016 09:34 [facility] COMPARISON: CHEST SINGLE AP, June 11, 2016, 19:14. INDICATIONS : Respitarory failure. MEDICAL HISTORY : None. SURGICAL HISTORY : None. ENCOUNTER: Initial ACUITY: 1 week PAIN SCORE: Non-responsive. LOCATION: chest FINDINGS: Single AP view of the chest. Endotracheal tube is in place with the tip 1 cm above the héctor. Nasoga stric tube is in place with the tip in the stomach. Patchy right perihilar lower lung zone opacity. C ardiomediastinal silhouette within normal limits. No evidence of pleural effusion or pneumothorax. CONCLUSION: 1. Endotracheal tube in place with the tip 1 cm above the héctor. Nasogastric tube in place. 2. New patchy right perihilar pulmonary opacity. Ralph Sneed MD on June 12, 2016 at 10:09 Board Certified Radiologist. This report was verified electronically.
--- NOTE | 2016-06-12 10:33 | RADRPT ---
EXAM DATE/TIME: 06/12/2016 00:00 [facility] COMPARISON: No previous studies available for comparison. INDICATIONS : Confirm oral gastric tube placement. MEDICAL HISTORY : None. SURGICAL HISTORY : None. ENCOUNTER: Initial ACUITY: 1 week PAIN SCORE: Non-responsive. LOCATION: Abdomen. FINDINGS: 2 AP views of the abdomen. Nasogastric tube is in place with the tip in the proximal gastric body. St omach is air-filled and moderately distended. CONCLUSION: Nasogastric tube tip in the stomach. Ralph Sneed MD on June 12, 2016 at 10:30 Board Certified Radiologist. This report was verified electronically.
[2016-06-12] MEDS: FUROSEMIDE 40 MG/4 ML VIAL IV PUSH SCH ×2 (11:52→18:24)
[2016-06-12] MEDS: SODIUM CHLORIDE 0.9% FLUSH 5 ML FLUSH FLUSH SCH ×2 (11:52→21:03)
[2016-06-12] MEDS: PHYTONADIONE 5 MG TAB PO SCH (11:53)
[2016-06-12] MEDS: THIAMINE HCL 100 MG TAB PO SCH (11:53)
[2016-06-12] MEDS: RIFAXIMIN 550 MG TAB PO SCH ×2 (11:53→21:03)
[2016-06-12] MEDS: PROPOFOL 1000 MG/100 ML INJ 100 ML IV SCH (11:53)
[2016-06-12] MEDS: NS + KCL 20 MEQ INJ 1,000 ML IV SCH (12:11)
[2016-06-12] MEDS: FOLIC ACID 1 MG TAB PO SCH (12:12)
[2016-06-12] MEDS: LACTULOSE SYRUP 20 GM/30 ML CUP PO SCH ×2 (12:12→21:03)
[2016-06-12] MEDS: PANTOPRAZOLE SODIUM 40 MG VIAL IV PUSH SCH (12:12)
[2016-06-12] MEDS: PIPERACIL-TAZO 3.375 GM PREMIX 50 ML IV SCH ×2 (12:13→18:24)
[2016-06-12] MEDS: FLUCONAZOLE 200 MG PREMIX BAG 100 ML IV SCH (12:45)
[2016-06-12] MEDS: cefTRIAXone INJ 1,000 MG in SODIUM CHLORIDE 0.9% INJ 100 ML IV SCH (12:46)
--- NOTE | 2016-06-12 12:48 | HHI.HCPN ---
Reason for visit a. To assist with evaluation and management of symptoms including: pain, ascites, hepatic encephalopathy, dyspnea b. To assist medical decision maker(s) with: better understanding of current medical conditions; weighing benefits/burdens of medical treatment options; making medical treatment decisions. . Subjective/Interval History Follow-up visit for, pain, hepatic encephalopathy and ascites,shortness of breath. Patient was Halicated yesterday evening for respiratory distress after desaturating into the low 70s, saturations increased into the 80s with a nonrebreather. He was transferred to [facility]. Respirations status continued to deteriorate requiring intubation. Critical care medicine was consulted for management of ventilator. Patient had copious amounts of gastric secretions in his lungs secondary to aspiration. Empiric antibiotics were initiated. 06/12/16: Chest x-ray showing new patchy right perihilar pulmonary opacity. = WBC: 23.0, hemoglobin 13.3, hematocrit 40.6, platelets 120, neutrophils 91.2% = PT 17.2, INR 1.5, APTT 32.7 = Urine culture pending = Sputum culture: preliminary yeast and pseudohyphae - antifungal initiated. = blood cultures showing no growth in 1 day = Peritoneal fluid cultures showing no growth in 48 hours Patient remains orotracheally intubated and sedated with the plan on mechanical ventilator. Does not respond to verbal stimuli on exam. Per notes, patient follows commands when on sedation vacation. Patient's family have been contacted. Patient's mother, brother and daughter are at patient's bedside. Dr. Hernandez discussed patient's clinical condition and poor prognosis. Palliative care also met with family to discuss comfort focused care. The family states "this has been long coming". They would like to consider transitioning to comfort focused care/hospice in the upcoming days ( possibly Wednesday), but would want to withdrawal patient from artificial life support earlier if he were to have an acute decline before Wednesday. Dr. Hernandez and nurse are aware. Code status changed to NO CODEDNR. . Family/friend interactions Patient's family have been contacted. Patient's mother, brother and daughter are at patient's bedside. Dr. Hernandez discussed patient's clinical condition and poor prognosis. Palliative care also met with family to discuss comfort focused care. The family states "this has been long coming". They would like to consider transitioning to comfort focused care/hospice in the upcoming days ( possibly Wednesday), but would want to withdrawal patient from artificial life support earlier if he were to have an acute decline before Wednesday. Dr. Hernandez and nurse are aware. Code status changed to NO CODEDNR. . Advance Directives Advance Directive Specifics Significant change in goals: Considering withdrawal of artificial life support in the upcoming days, likely Wednesday. . Objective Vital Signs Date Time Temp Pulse Resp B/P Pulse Ox O2 Delivery O2 Flow Rate FiO2 06/12/16 11:44 100 40 06/12/16 08:36 100 40 06/12/16 07:00 100 Mechanical Ventilator 50 06/12/16 06:16 99 50 06/12/16 04:00 50 06/12/16 04:00 96.0 98 31 115/73 100 06/12/16 01:19 100 70 06/12/16 00:00 80 06/12/16 00:00 96.5 96 31 117/79 100 06/11/16 23:30 100 80 06/11/16 22:05 97 100 06/11/16 22:02 100 06/11/16 20:00 97.5 104 40 139/93 94 06/11/16 20:00 104 06/11/16 19:00 99 100 06/11/16 19:00 100 Bi-Pap 100 06/11/16 16:00 107 24 134/93 93 06/11/16 16:00 107 24 134/93 93 Intake & Output 06/12/16 06/12/16 07:00 19:00 Intake Total 910 ml Output Total 100 ml Balance 810 ml IV Total 410 ml Albumin 500 ml Output Urine Total 100 ml # Bowel Movements 1 . Physical Exam CONSTITUTIONAL/GENERAL: This is a malnourished, chronically ill middle aged male patient, in no apparent distress. TUBES/LINES/DRAINS: soft restraints cotto catheter, PIV x 3, SCDs, ETT, SKIN: Skin temperature appropriate. HEAD: Atraumatic. Normocephalic. EYES: Pupils equal and round, sluggish. ENT: Nose without bleeding or purulent drainage. oral cavity with dried blood. NECK: Orotracheally intubated CARDIOVASCULAR: Regular rate and rhythm without murmurs, gallops, or rubs. No JVD. Peripheral pulses symmetric. RESPIRATORY/CHEST: Coarse breath sounds throughout lung hubbard. Mechanical ventilation GASTROINTESTINAL: Abdomen soft, protuberant with noted ascites GENITOURINARY: Without palpable bladder distension. Cotto catheter in place MUSCULOSKELETAL: Extremities without clubbing, cyanosis. NEUROLOGICAL: Does not arouse to verbal stimuli on exam. Per notes, GCS 11 when on sedation vacation, following commands. PSYCHIATRIC: Difficult to assess due to clinical condition. No anxiety/agitation /hallucinations noted on exam. . . Diagnostic Tests Laboratory Laboratory Tests Test 06/10/16 06/10/16 06/11/16 06/11/16 06:40 11:10 05:15 18:30 White Blood Count 4.5 TH/MM3 (4.0-11.0) Red Blood Count 4.17 MIL/MM3 (4.50-5.90) Hemoglobin 11.0 GM/DL (13.0-17.0) Hematocrit 33.7 % (39.0-51.0) Mean Corpuscular Volume 80.8 FL (80.0-100.0) Mean Corpuscular Hemoglobin 26.5 PG (27.0-34.0) Mean Corpuscular Hemoglobin 32.7 % Concent (32.0-36.0) Red Cell Distribution Width 22.5 % (11.6-17.2) Platelet Count 95 TH/MM3 (150-450) Mean Platelet Volume 10.1 FL (7.0-11.0) Sodium Level 141 MEQ/L 143 MEQ/L (136-145) (136-145) Potassium Level 3.9 MEQ/L 3.3 MEQ/L (3.5-5.1) (3.5-5.1) Chloride Level 111 MEQ/L 110 MEQ/L (98-107) (98-107) Carbon Dioxide Level 22.2 MEQ/L 20.1 MEQ/L (21.0-32.0) (21.0-32.0) Anion Gap 8 MEQ/L (5-15) 13 MEQ/L (5-15) Blood Urea Nitrogen 16 MG/DL (7-18) 14 MG/DL (7-18) Creatinine 0.81 MG/DL 0.79 MG/DL (0.60-1.30) (0.60-1.30) Estimat Glomerular Filtration 101 ML/MIN 104 ML/MIN Rate (>89) (>89) Random Glucose 86 MG/DL 116 MG/DL (74-106) (74-106) Calcium Level 9.4 MG/DL 9.7 MG/DL (8.5-10.1) (8.5-10.1) Total Bilirubin 1.8 MG/DL (0.2-1.0) Aspartate Amino Transf 40 U/L (15-37) (AST/SGOT) Alanine Aminotransferase 18 U/L (12-78) (ALT/SGPT) Alkaline Phosphatase 58 U/L (45-117) Total Protein 7.4 GM/DL (6.4-8.2) Albumin 3.2 GM/DL (3.4-5.0) Peritoneal Fluid WBC 58 /MM3 (0-10) Peritoneal Fluid RBC 19 /MM3 (0-0) Peritoneal Fluid Neutrophils 18 % Peritoneal Fluid Lymphocytes 51 % Peritoneal Fluid Monocytes 21 % Peritoneal Fluid Basophils 1 % Peritoneal Fluid Histiocytes 9 % Blood Gas Puncture Site RT RADIAL Blood Gas Patient Temperature 98.6 Blood Gas HCO3 17 mmol/L (22-26) Blood Gas Base Excess -6.6 mmol/L (-2-2) Blood Gas Oxygen Saturation 84 % (90-100) Arterial Blood pH 7.46 (7.380-7.420) Arterial Blood Partial 24 mmHg (38-42) Pressure CO2 Arterial Blood Partial 55 mmHg Pressure O2 (61-120) Arterial Blood Oxygen Content 14.5 Vol % (12.0-20.0) Arterial Blood 1.9 % (0-4) Carboxyhemoglobin Arterial Blood Methemoglobin 0.8 % (0-2) Blood Gas Hemoglobin 12.3 G/DL (12.0-16.0) Oxygen Delivery Device Non-Rebreathing Mask Blood Gas Liter Flow 15 L/M Test 06/11/16 06/11/16 06/11/16 06/12/16 19:45 19:48 23:21 03:00 Prothrombin Time 17.2 SEC (9.8-11.6) Prothromb Time International 1.5 RATIO Ratio Activated Partial 32.7 SEC Thromboplast Time (24.3-30.1) Sodium Level 144 MEQ/L (136-145) Potassium Level 3.5 MEQ/L (3.5-5.1) Chloride Level 110 MEQ/L (98-107) Carbon Dioxide Level 23.0 MEQ/L (21.0-32.0) Anion Gap 11 MEQ/L (5-15) Blood Urea Nitrogen 16 MG/DL (7-18) Creatinine 0.97 MG/DL (0.60-1.30) Estimat Glomerular Filtration 82 ML/MIN (>89) Rate Random Glucose 117 MG/DL (74-106) Calcium Level 10.2 MG/DL (8.5-10.1) Phosphorus Level 4.1 MG/DL (2.5-4.9) Magnesium Level 1.5 MG/DL (1.5-2.5) Total Bilirubin 3.3 MG/DL (0.2-1.0) Aspartate Amino Transf 27 U/L (15-37) (AST/SGOT) Alanine Aminotransferase 18 U/L (12-78) (ALT/SGPT) Alkaline Phosphatase 71 U/L (45-117) C-Reactive Protein 4.90 MG/DL (0.00-0.30) Total Protein 8.3 GM/DL (6.4-8.2) Albumin 3.6 GM/DL (3.4-5.0) B-Type Natriuretic Peptide 353 PG/ML (0-100) White Blood Count 23.0 TH/MM3 (4.0-11.0) Red Blood Count 5.05 MIL/MM3 (4.50-5.90) Hemoglobin 13.3 GM/DL (13.0-17.0) Hematocrit 40.6 % (39.0-51.0) Mean Corpuscular Volume 80.4 FL (80.0-100.0) Mean Corpuscular Hemoglobin 26.5 PG (27.0-34.0) Mean Corpuscular Hemoglobin 32.9 % Concent (32.0-36.0) Red Cell Distribution Width 23.6 % (11.6-17.2) Platelet Count 120 TH/MM3 (150-450) Mean Platelet Volume 10.3 FL (7.0-11.0) Neutrophils (%) (Auto) 91.2 % (16.0-70.0) Lymphocytes (%) (Auto) 2.4 % (9.0-44.0) Monocytes (%) (Auto) 6.1 % (0.0-8.0) Eosinophils (%) (Auto) 0.0 % (0.0-4.0) Basophils (%) (Auto) 0.3 % (0.0-2.0) Neutrophils # (Auto) 20.9 TH/MM3 (1.8-7.7) Lymphocytes # (Auto) 0.6 TH/MM3 (1.0-4.8) Monocytes # (Auto) 1.4 TH/MM3 (0-0.9) Eosinophils # (Auto) 0.0 TH/MM3 (0-0.4) Basophils # (Auto) 0.1 TH/MM3 (0-0.2) CBC Comment DIFF FINAL Differential Comment Blood Gas Puncture Site RT RADIAL Blood Gas Patient Temperature 98.6 Blood Gas HCO3 18 mmol/L (22-26) Blood Gas Base Excess -5.9 mmol/L (-2-2) Blood Gas Oxygen Saturation 98 % (90-100) Arterial Blood pH 7.37 (7.380-7.420) Arterial Blood Partial 33 mmHg (38-42) Pressure CO2 Arterial Blood Partial 207 mmHg Pressure O2 (61-120) Arterial Blood Oxygen Content 17.2 Vol % (12.0-20.0) Arterial Blood 1.3 % (0-4) Carboxyhemoglobin Arterial Blood Methemoglobin 0.6 % (0-2) Blood Gas Hemoglobin 12.2 G/DL (12.0-16.0) Oxygen Delivery Device VENTILATOR Blood Gas Ventilator Setting A/C14/500/PEEP5 Blood Gas Inspired Oxygen 100 % Urine Color YELLOW (YELLW/STRAW) Urine Turbidity CLOUDY (CLEAR) Urine pH 5.5 (5.0-8.5) Urine Specific [place] 1.020 (1.002-1.035) Urine Protein 30 mg/dL (NEG-TRACE) Urine Glucose (UA) NEG mg/dL (NEG) Urine Ketones NEG mg/dL (NEG) Urine Occult Blood MOD (NEG) Urine Nitrite NEG (NEG) Urine Bilirubin NEG (NEG) Urine Urobilinogen LESS THAN 2.0 MG/DL (LESS THAN 2.0) Urine Leukocyte Esterase LARGE (NEG) Urine RBC 74 /hpf (0-3) Urine WBC 15 /hpf (0-5) Urine Uric Acid Crystals MANY /hpf (NONE) Urine Bacteria RARE /hpf (NONE) Urine Mucus FEW /lpf (OCC) Microscopic Urinalysis Comment CATH-CULTURE IND Test 06/12/16 03:31 Sodium Level 146 MEQ/L (136-145) Potassium Level 3.6 MEQ/L (3.5-5.1) Chloride Level 112 MEQ/L (98-107) Carbon Dioxide Level 21.9 MEQ/L (21.0-32.0) Anion Gap 12 MEQ/L (5-15) Blood Urea Nitrogen 19 MG/DL (7-18) Creatinine 0.96 MG/DL (0.60-1.30) Estimat Glomerular Filtration 83 ML/MIN (>89) Rate Random Glucose 108 MG/DL (74-106) Calcium Level 10.0 MG/DL (8.5-10.1) . Result Diagram: 06/11/16194706/12/16 033 Microbiology Microbiology Date/Time Procedure Status Source Growth 06/10/16 11:10 Gram Stain - Final Resulted Fluid Peritoneal Fluid 06/10/16 11:10 Body Fluid Culture - Preliminary Resulted Fluid Peritoneal Fluid NO GROWTH IN 48 HOURS. 06/11/16 19:40 Aerobic Blood Culture - Preliminary Resulted Blood Peripheral NO GROWTH IN 1 DAY 06/11/16 19:40 Anaerobic Blood Culture - Preliminary Resulted Blood Peripheral NO GROWTH IN 1 DAY 06/11/16 19:45 Aerobic Blood Culture - Preliminary Resulted Blood Peripheral NO GROWTH IN 1 DAY 06/11/16 19:45 Anaerobic Blood Culture - Preliminary Resulted Blood Peripheral NO GROWTH IN 1 DAY 06/12/16 00:00 Gram Stain - Final Resulted Sputum Endotracheal 06/12/16 00:00 Sputum Culture Resulted Sputum Endotracheal Pending 06/12/16 03:00 Legionella Antigen - Final Complete Urine Catheterized Urine PRESUMPTIVE NEGATIVE FOR LEGIONELLA P... 06/12/16 03:00 Streptococcus pneumoniae Antigen (M - Final Complete Urine Catheterized Urine PRESUMPTIVE NEGATIVE FOR STREPTOCOCCU... 06/12/16 03:00 Urine Culture Received Urine Catheterized Urine Pending . Imaging Last 72 hours Impressions Chest X-Ray 06/12/16 0000 Signed Impressions: Service Date/Time: Sunday, June 12, 2016 09:34 - CONCLUSION: 1. Endotracheal tube in place with the tip 1 cm above the héctor. Nasogastric tube in place. 2. New patchy right perihilar pulmonary opacity. Ralph Sneed MD Abdomen X-Ray 06/12/16 0000 Signed Impressions: Service Date/Time: Sunday, June 12, 2016 00:00 - CONCLUSION: Nasogastric tube tip in the stomach. Ralph Sneed MD Chest X-Ray 06/11/16 0000 Signed Impressions: Service Date/Time: June 19:14 - CONCLUSION: No evidence of acute cardiopulmonary disease. Jann Jane MD Cyst Biopsy Asp-Paracentesis US 06/10/16 0000 Signed Impressions: Service Date/Time: Friday, June 10, 2016 10:49 - CONCLUSION: Uncomplicated ultrasound guided paracentesis. Patient received albumin per protocol. Tyson Farias MD FACR . Procedures 06/03/16: Paracentesis 06/10/16: Paracentesis 06/12/16: Intubation 06/12/16: NG tube placement . Assessment and Plan Disease Oriented Problem List: (1) Hallucination (2) Acute kidney injury (3) Thrombocytopenia (4) Tobacco abuse (5) Alcohol withdrawal (6) Abdominal pain (7) Uncontrolled hypertension (8) Normochromic normocytic anemia (9) GERD (gastroesophageal reflux disease) (10) Ascites of liver (11) Cerebral contusion (12) Encephalopathy chronic (13) Anemia (14) Coagulopathy (15) Intracranial hemorrhage (16) Hepatic encephalopathy (17) Hypokalemia (18) Cirrhosis (19) Hyperammonemia (20) Oliguria Symptom Scale: (1) Pain 0-10 Scale: Unable to quantify Comment: Patient exhibits no signs or symptoms of pain on exam. Possible cause of pain includes ascites, recent fall, abrasions, contusions, invasive lines, soft restraint, immobility, bedbound status. . (2) Ascites 0-10 Scale: Unable to quantify Comment: He underwent a ultrasound-guided paracenteses on 06/03/16 with 13,000 ml, yellow fluid removed. Peritoneal fluid culture negative. Ascitic fluid analysis is not consistent with SBP. Fluid has reaccumulated and patient underwent another ultrasound-guided paracentesis on 06/10/16 with 11,400mL's of clear, yellow fluid removed. Fluid was sent to lab for ordered studies. . (3) Hepatic encephalopathy 0-10 Scale: Unable to quantify Comment: Ammonia level on admission 06/02/1734. Ammonia level < 10 today. Lactulose being held. Continue Rifaximin (4) Dyspnea 0-10 Scale: Unable to quantify Comment: Patient Halicated yesterday 2/2 respiratory distress requiring intubation. Remains orotracheally intubated on mechanical ventilator. FiO2 40% , rate 14, PEEP 5. Pertinent Non-Medical Issues Psychosocial: Per review of previous notes: Patient reports that he lives with his girlfriend but it is worth noting that he cannot remember his girlfriend's name or number. He has a 12th grade education. He says he has 2 children from her previous relationship. 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 He denies a history of legal problems. Denies any access to guns or firearms. Spiritual: Per review of previous notes: Patient reports that he lives with his girlfriend but it is worth noting that he cannot remember his girlfriend's name or number. He has a 12th grade education. He says he has 2 children from her previous relationship. 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 He denies a history of legal problems. Denies any access to guns or firearms. Legal: Pending identification of legal medical decision maker. Ethical issues impacting care: Case management consult placed requesting [employer] reports . Important Contacts Taryn Valladares, daughter: [phone] Greg Valladares, mother: [phone] Yomi Valladares, brother: [phone] . Prognosis Patient is a cachectic 50 year old who has been hospitalized 5 times since November. 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 Currently admitted with status post fall, encephalopathic secondary to liver disease versus intracranial hemorrhage. Coagulopathy. Ascites. Status post ultrasound-guided paracentesis with removal of 13 L fluid. Nephrology now consulted for hypokalemia and decreased urine output. Prognosis poor-patient is appropriate for hospice. . Code Status: No Code Plan * NO CODE * Decision-making: Patient is not . He has 1 living child. Per [place] statutes, in the absence of written advanced directives healthcare proxy decision-making falls to the patient's daughter, Taryn Valladares. * Goals: Family members are in agreement, will likely withdrawal of artificial life support in the upcoming days (possibly Wednesday), but would want to withdrawal patient from artificial life support earlier if he were to have an acute decline before Wednesday. * Patient's daughter requesting required documentation that her father is currently hospitalized for her employee - provided. * Discussed with Dr. Hernandez and patient's nurse. * Contacted [employer]) and Ally Whitmore to notify them that social work advantage is no longer necessary. Family members were identified and present at bedside today * Family contact information: Taryn Valladares, daughter: [phone], Greg Valladares, mother: [phone], Yomi Valladares, brother: [phone] * Symptom managementascites: He underwent a ultrasound-guided paracenteses on with 13,000 ml, yellow fluid removed. Peritoneal fluid culture negative. Ascitic fluid analysis is not consistent with SBP. Fluid has reaccumulated and patient underwent another ultrasound-guided paracentesis on 06/10/16 with 11,400mL 's of clear, yellow fluid removed-fluid appears to be reaccumulating today. Fluid was sent to lab for ordered studies. * Symptom managementhepatic encephalopathy: Ammonia level on admission 1734. Ammonia level < 10 yesterday 06/09/16. Normal EEG 06/09/16. Remains on lactulose and rifaximin. * Symptom managementpain: Patient exhibits no signs or symptoms of pain on exam. Possible cause of pain includes ascites, recent fall, abrasions, contusions, invasive lines, soft restraint, immobility, bedbound status. PRN Oxycodone was discontinued s/p respiratory distress. Recommendations to monitor patient frequently for signs and symptoms of nonverbal pain and consider initiating sedation or low dose opioid if indicated. * Symptom managementdyspnea: Patient was Halicated yesterday evening for respiratory distress after desaturating into the low 70s, saturations increased into the 80s with a nonrebreather. He was transferred to [facility]. Respirations status continued to deteriorate requiring intubation - copious amounts of gastric secretions in his lungs secondary to aspiration. Empiric antibiotics were initiated. FiO2 40%, rate 14, PEEP 5. * Palliative care will continue to follow this patient throughout his hospitalization to establish trust, assist with symptom management and clarification of medical treatment goals. . Attestation To help prompt me to consider important information that might be impacting today's encounter and assessment, information from prior notes written by myself or my colleagues may have been "brought forward" into today's note. My signature on this note, however, is an attestation that I personally performed the exam, history, and/or decision-making noted today, and, unless otherwise indicated, the interactions with patient, family, and staff as well as the review of records all occurred today. I also attest that the listed assessment and stated plan reflect my best clinical judgment today based on the combination of historical information, prior notes, and today's exam/ interactions. When time spent is documented, it refers only to time spent today by the signer, or if indicated, combined time spent today by collaborating physician/nurse practitioner. . Jayne Lopez Jun 12, 2016 12:48
[2016-06-13] VITALS (12 sets, daily range): BP systolic 86–109; BP diastolic 50–65; PULSE 74–102; RESP 17–24; TEMP 97.6–99.5; O2SAT 96–100
[2016-06-13] MEDS: PIPERACIL-TAZO 3.375 GM PREMIX 50 ML IV SCH ×4 (00:27→19:00)
[2016-06-13] MEDS: VANCOMYCIN INJ 1,100 MG in SODIUM CHLOR 0.9% 250 ML INJ 250 ML IV SCH ×2 (00:28→11:21)
[2016-06-13] MEDS: ALBUMIN HUMAN 5% 25 GM/500 ML BOTTLE IV SCH ×2 (01:41→12:42)
[2016-06-13 05:47] LABS: AUTOMATED NEUTROPHIL # 7.4 TH/MM3 (1.8-7.7); BASOPHIL # 0.1 TH/MM3 (0-0.2); BASOPHIL % 0.5 % (0.0-2.0); EOSINOPHIL # 0.1 TH/MM3 (0-0.4); EOSINOPHIL % 1.2 % (0.0-4.0); HEMATOCRIT 26.1 % (39.0-51.0); LYMPH % 12.6 % (9.0-44.0); LYMPHOCYTE # 1.2 TH/MM3 (1.0-4.8); MEAN CELL VOLUME 79.4 FL (80.0-100.0); MEAN CORPUSCULAR HEMOGLOBIN 27.2 PG (27.0-34.0); MEAN CORPUSCULAR HGB CONC 34.3 % (32.0-36.0); MONO % 10.2 % (0.0-8.0); NEUT % 75.5 % (16.0-70.0); PLATELET COUNT 71 TH/MM3 (150-450); RED BLOOD COUNT 3.29 MIL/MM3 (4.50-5.90); RED CELL DISTRIBUTION WIDTH 23.2 % (11.6-17.2); WHITE BLOOD COUNT 9.8 TH/MM3 (4.0-11.0)
[2016-06-13 05:49] LABS: INTERNATIONAL NORMALIZED RATIO 1.5 RATIO; PROTHROMBIN TIME - PATIENT 16.4 SEC (9.8-11.6)
[2016-06-13 05:52] LABS: HEMO FLAGS AUTO DIFF
[2016-06-13 06:17] LABS: ALKALINE PHOSPHATASE 49 U/L (45-117); ALT (GPT) 10 U/L (12-78); ANION GAP 11 MEQ/L (5-15); AST (GOT) 15 U/L (15-37); BICARBONATE 22.1 MEQ/L (21.0-32.0); BLOOD UREA NITROGEN 24 MG/DL (7-18); CHLORIDE 117 MEQ/L (98-107); GLOMERULAR FILTRATION RATE 72 ML/MIN (>89); MAGNESIUM 1.5 MG/DL (1.5-2.5); POTASSIUM 3.1 MEQ/L (3.5-5.1); SODIUM (NA) 150 MEQ/L (136-145); TOTAL BILIRUBIN ADULT 1.8 MG/DL (0.2-1.0)
[2016-06-13] MEDS: SODIUM CHLORIDE 0.9% FLUSH 5 ML FLUSH FLUSH SCH ×2 (08:02→20:57)
[2016-06-13] MEDS: DOCUSATE SODIUM 100 MG CAP PO SCH (08:02)
[2016-06-13] MEDS: PHYTONADIONE 5 MG TAB PO SCH (08:02)
[2016-06-13] MEDS: THIAMINE HCL 100 MG TAB PO SCH (08:02)
[2016-06-13] MEDS: SPIRONOLACTONE 50 MG TAB PO SCH ×2 (08:02→18:59)
[2016-06-13] MEDS: RIFAXIMIN 550 MG TAB PO SCH ×2 (08:03→20:57)
[2016-06-13] MEDS: LACTULOSE SYRUP 20 GM/30 ML CUP PO SCH ×2 (08:03→20:28)
[2016-06-13] MEDS: FOLIC ACID 1 MG TAB PO SCH (08:04)
[2016-06-13] MEDS: RESP: ALBUTEROL 2.5 MG/IPRATROPIUM 0.5 MG NEB (SCH) NEB ×3 (08:20→23:35)
[2016-06-13] MEDS ORDERED: ICU - D/C ICU ELECTROLYTE ORDERS XX PRN (09:30)
[2016-06-13] MEDS ORDERED: ICU - SODIUM PHOSPHATE 30 MMOL/NS 250 ML IV PRN ×2 (09:30)
[2016-06-13] MEDS ORDERED: ICU - MAGNESIUM OXIDE 400 MG TAB PO PRN (09:30)
[2016-06-13] MEDS ORDERED: ICU - POTASSIUM PHOSPHATE 30 MMOL/NS 250 ML IV PRN ×2 (09:30)
[2016-06-13] MEDS ORDERED: ICU - POTASSIUM CHLORIDE 10% LIQUID 40 MEQ/30 ML CUP PO PRN (09:30)
[2016-06-13] MEDS ORDERED: ICU - POTASSIUM PHOSPHATE MONOBASIC 500 MG TAB PO/TUBE PRN (09:30)
[2016-06-13] MEDS ORDERED: ICU - MAGNESIUM SULFATE 4 GM/NS 100 ML IV PRN ×2 (09:30)
[2016-06-13] MEDS ORDERED: ICU - POTASSIUM CHLORIDE/AQUEOUS SOLN 40 MEQ/100 ML IVPB IV PRN (09:30)
[2016-06-13] MEDS ORDERED: ICU - CALL ORDERING PHYSICIAN XX PRN (09:30)
[2016-06-13] MEDS ORDERED: ICU - MAGNESIUM SULFATE 2 GM/NS 100 ML IV PRN ×2 (09:30)
[2016-06-13] MEDS: ICU - POTASSIUM CHLORIDE/AQUEOUS SOLN 20 MEQ/100 ML IVPB IV PRN ×4 (09:35→17:10)
[2016-06-13] MEDS: NS + KCL 20 MEQ INJ 1,000 ML IV SCH (09:36)
[2016-06-13] MEDS: FUROSEMIDE 40 MG/4 ML VIAL IV PUSH SCH ×2 (09:36→18:59)
[2016-06-13] MEDS: PANTOPRAZOLE SODIUM 40 MG VIAL IV PUSH SCH (10:13)
[2016-06-13 10:54] LABS: PLATELET ESTIMATE SMEAR LOW (NORMAL); PLATELET MORPHOLOGY NORMAL (NORMAL); SCAN/DIFF AUTO DIFF CONFIRMED
[2016-06-13] MEDS: FLUCONAZOLE 200 MG PREMIX BAG 100 ML IV SCH (11:21)
[2016-06-13] MEDS: cefTRIAXone INJ 1,000 MG in SODIUM CHLORIDE 0.9% INJ 100 ML IV SCH (11:21)
[2016-06-13] MEDS ORDERED: PHARMACY ORDERED LAB XX ONE (11:45)
[2016-06-13] MEDS: PROPOFOL 1000 MG/100 ML INJ 100 ML IV SCH (15:04)
--- NOTE | 2016-06-13 18:00 | HHI.CCPN ---
Subjective Remarks/Hospital Course Mr. Valladares is a male with a past medical history of anxiety, depression, GERD, pleurisy, alcohol abuse, and hepatitis C who presented to the emergency room on 06/02/16 for evaluation of altered mental status and fall. Head CT showed questionable small intraparenchymal hematoma involving the right middle cerebellar peduncle. Large right parietal soft tissue hematoma. No intervention was recommended at that time. June 11, 2016 around 6:00 pm patient was transferred to ICU due to respiratory distress and altered mental status. His respirations became worse requiring intubation. Critical care medicine was consulted for management of ventilator. Subjective /3-Sedation it was noted the patient had copious amount of gastric (bilious, greenish )secretions in his lungs obvious aspiration. Empiric antibiotics were initiated last evening. Sputum culture resulted preliminary yeast with pseudohyphae. Antifungal will be initiated. PF ratio greater than 400, will decrease FiO2. /4- Afebrile .The patient has been maintain on CPAP trials greater than 12 hours , sputum culture resulted gram-negative rods patient currently on empiric antibiotics.Palliative care was consulted and the patient was made DNR status, tentatively the patient family is planning for transfer to hospice care center on Wednesday. Objective Vital Signs Date Time Temp Pulse Resp B/P Pulse Ox O2 Delivery O2 Flow Rate FiO2 06/13/16 16:10 97 30 06/13/16 16:00 97.6 76 18 91/56 06/13/16 07:00 Mechanical Ventilator 06/11/16 08:00 2.00 Intake and Output 06/12/16 06/12/16 06/13/16 08:00 16:00 00:00 Intake Total 910 ml 847 ml 688 ml Output Total 100 ml 2500 ml 1100 ml Balance 810 ml -1653 ml -412 ml Result Diagram: 06/13/16 0511 06/13/16 0511 Other Results Microbiology Date/Time Procedure Status Source Growth 06/12/16 03:00 Legionella Antigen - Final Complete Urine Catheterized Urine PRESUMPTIVE NEGATIVE FOR LEGIONELLA P... 06/12/16 03:00 Streptococcus pneumoniae Antigen (M - Final Complete Urine Catheterized Urine PRESUMPTIVE NEGATIVE FOR STREPTOCOCCU... Imaging Last Impressions Chest X-Ray 06/11/16 0000 Signed Impressions: Service Date/Time: June 19:14 - CONCLUSION: No evidence of acute cardiopulmonary disease. Jann Jane MD Cyst Biopsy Asp-Paracentesis US 06/10/16 0000 Signed Impressions: Service Date/Time: Friday, June 10, 2016 10:49 - CONCLUSION: Uncomplicated ultrasound guided paracentesis. Patient received albumin per protocol. Tyson Farias MD FACR Abdomen Ultrasound 06/06/16 0000 Signed Impressions: Service Date/Time: Monday, June 06, 2016 09:06 - CONCLUSION: 1. There is a sludge in the gallbladder. There is some thickening of the gallbladder wall at 6 mm. This is suggestive of chronic gallbladder disease. No biliary tract obstruction is demonstrated. 2. Heterogeneous lobular liver characteristic for cirrhosis. 3. Moderate ascites. 4. Splenomegaly. Kervin Garza MD Brain MRI 06/04/16 0000 Signed Impressions: Service Date/Time: May 13:22 - CONCLUSION: Small focal hemorrhage identified in the region of the right cerebellum. Linear areas of increased T2 signal identified within the right and left cerebellar peduncle and within the left temporal lobe without corresponding hemorrhage or restricted diffusion. These may represent sequelae of trauma. Brunilda Polanco MD Head CT 06/03/16 0600 Signed Impressions: Service Date/Time: Friday, June 03, 2016 08:05 - CONCLUSION: Abnormal CT scan. MRI may be of benefit to confirm hemorrhage. Tyson Farias MD FACR Cervical Spine CT 06/02/16 0000 Signed Impressions: Service Date/Time: Thursday, June 02, 2016 19:04 - CONCLUSION: 1. No fracture or dislocation. 2. Degenerative changes. 3. Calcified atherosclerotic plaque involving the carotid arteries bilaterally. Haider Reinoso Jr., MD Last 24 hours Impressions Chest X-Ray 06/11/16 0000 Signed Impressions: Service Date/Time: June 19:14 - CONCLUSION: No evidence of acute cardiopulmonary disease. Jann Jane MD Objective Remarks GENERAL: Critically ill-appearing male sedated and intubated patient. SKIN: Warm and dry. HEAD: Normocephalic. EYES: No scleral icterus. No injection or drainage. NECK: Supple, trachea midline. No JVD or lymphadenopathy. Orotracheally intubated CARDIOVASCULAR: Regular rate and rhythm without murmurs,S1,S2 no gallops, or rubs. RESPIRATORY: Breath sounds equal bilaterally. Coarse breath sounds throughout lung hubbard. Mechanical ventilation GASTROINTESTINAL: Abdomen soft, protuberant with noted ascites MUSCULOSKELETAL: No cyanosis, or edema. NEURO: GCS 11 T on sedation vacation, following commands movement of extremities 4. Currently on Midazolam infusion. Procedures 06/03/16 paracentesis Urinary Catheter: Yes Danielle insert reason: ICU Pt Getting Diuretics Vascular Central Line Catheter: No A/P Problem List: (1) Ascites ICD Code: R18.8 Status: Acute (2) Cerebral contusion ICD Code: S06.339A Status: Acute (3) Encephalopathy chronic ICD Code: G93.49 Status: Acute (4) Cirrhosis ICD Code: K74.60 Status: Chronic Assessment and Plan Plan by systems: Neurologic: Hepatic encephalopathy Hyperammonemia EtOH use disorder ICH -ICH cleared by neurosurgery, MRI most likely cerebral peduncle contusion -Continue rifaximin and lactulose -Continue thiamine and folate -Neurochecks per ICU protocol -GCS 11 T on sedation vacation - Propofol infusion, currently off patient interacting with family -DC PO narcotics -Continue thiamine and folate Respiratory: Acute hypoxic/hypercapnic respiratory failure Aspiration pneumonia -Maintain O2 sat greater than 92%, wean FiO2 less than 50% -Maintain tidal volume 6-8 cc/kilogram -Continue mechanical ventilation until neurologically improved -Repeat chest x-ray follow-up results -Mechanical vent settings 14/500/5/0.3 -Empiric antibiotics Zosyn and vancomycin(day 2) -Sputum culture 2/2 gram-negative gabby Cardiovascular: -Normotensive -Maintain MAP greater than 65mmHg Renal: -No acute issues -Lasix, spironolactone secondary to ESLD -Maintain Danielle catheter, monitor hourly urine output -- Strict I/Os FEN/GI: End-stage liver disease Liver Cirrhosis Ascites Severe protein calorie malnutrition -Meld score 13 -GI signed off, paracentesis 06/03- 13 liters, 06/10-11 L, no scheduled paracentesis recommended per GI -Will resume Rocephin for SBT prophylaxis -Nutrition consult-tube feed recommendations - Begin tube feeds-Jevity 1.5 -Continue albumin twice a day, Lasix ,spironolactone -Supportive care-Palliative medicine on board, plan for possible transfer to hospice care center on Wednesday Heme/ID: Anemia Thrombocytopenia Leukocytosis Hepatitis Coagulopathy -WBC 23, continue to monitor -Monitor CBC, coags, INR 1.5, platelet 70 today, continue to monitor -Continue vitamin K -Transfuse for hemoglobin less than 7, platelet count less than 50,000 -Vancomycin and Zosyn initiated empiric antibiotics -Sputum culture 2/2 -yeast with pseudohyphae. Diflucan (day 2) -Blood cultures, urine cultures- F/U results -strep pneumo, legionella antigen-pending -Rocephin-SBT prophylaxis Endocrine: -Monitor blood glucose per ICU protocol -Sliding-scale insulin low -- SSI Prophylaxis: GI Prophylaxis Protonix DVT Prophylaxis -- SCDs No pharmacological DVT prophylaxis at this time Lines: Peripheral IVs 2. Dispo: Discussed with LEAN PROCESS DEPLOYMENT CONSULTANT at bedside. Spoke with family at bedside with patient's mother. Palliative care medicine today to discuss goals of treatment/care, plan for possible transport to hospice on Wednesday. This patient remains critically ill with one or more organ systems which are or may become a threat to life. I have spent in excess of 35 minutes discontinuously in the care and management of this patient. This time is exclusive of procedures, and includes, but is not limited to, evaluation of the patient, review of the medical record, discussions with family, consultants, nursing staff, or respiratory therapy, and documentation in the medical record. Physician Suma Hernandez Problem Qualifiers (1) Ascites: Qualified Code: R18.8 - Other ascites (2) Cerebral contusion: Qualified Code: S06.319A - Cerebral contusion, right, with loss of consciousness of unspecified duration, initial encounter (3) Cirrhosis: Qualified Code: K74.60 - Cirrhosis of liver with ascites, unspecified hepatic cirrhosis type Suma Hernandez MD Jun 13, 2016 18:00
[2016-06-14] VITALS (10 sets, daily range): BP systolic 93–117; BP diastolic 55–64; PULSE 61–73; RESP 14–25; TEMP 97.6–98.2; O2SAT 40–100
[2016-06-14] MEDS: PIPERACIL-TAZO 3.375 GM PREMIX 50 ML IV SCH ×4 (00:09→18:01)
[2016-06-14] MEDS: ALBUMIN HUMAN 5% 25 GM/500 ML BOTTLE IV SCH ×2 (02:19→14:05)
[2016-06-14 05:28] LABS: BLOOD GAS BASE EXCESS -2.6 mmol/L (-2-2); BLOOD GAS CARBOXYHEMOGLOBIN 1.8 % (0-4); BLOOD GAS HCO3 21 mmol/L (22-26); BLOOD GAS METHEMOGLOBIN 0.8 % (0-2); BLOOD GAS O2 HGB SATURATION 95 % (90-100); BLOOD GAS OXYGEN CONTENT 11.7 Vol % (12.0-20.0); BLOOD GAS PCO2 32 mmHg (38-42); BLOOD GAS PO2 92 mmHg (61-120); BLOOD GAS TOTAL HGB 8.7 G/DL (12.0-16.0); CRITICAL VALUE NO; OXYGEN DEVICE VENTILATOR; TEMP CORR TO 98.6
[2016-06-14 05:29] LABS: DRAW SITE LT RADIAL; FIO2 30 %; NUMBER OF ARTERIAL PUNCTURES 1; STAT NO; ULNAR PULSE PRESENT; VENT SETTINGS CPAP10PS/5PEEP
[2016-06-14 05:29] LABS: HEMATOCRIT 26.3 % (39.0-51.0); MEAN CELL VOLUME 81.2 FL (80.0-100.0); MEAN CORPUSCULAR HEMOGLOBIN 26.2 PG (27.0-34.0); MEAN CORPUSCULAR HGB CONC 32.3 % (32.0-36.0); PLATELET COUNT 54 TH/MM3 (150-450); RED BLOOD COUNT 3.24 MIL/MM3 (4.50-5.90); WHITE BLOOD COUNT 4.5 TH/MM3 (4.0-11.0)
[2016-06-14 05:36] LABS: BICARBONATE 23.9 MEQ/L (21.0-32.0); MAGNESIUM 1.7 MG/DL (1.5-2.5); POTASSIUM 3.1 MEQ/L (3.5-5.1)
--- NOTE | 2016-06-14 06:56 | RADRPT ---
EXAM DATE/TIME: 06/14/2016 06:16 [facility] COMPARISON: CHEST SINGLE AP, June 12, 2016, 9:34. INDICATIONS : Shortness of breath, possible pulmonary disease. MEDICAL HISTORY : None. SURGICAL HISTORY : None. ENCOUNTER: Subsequent ACUITY: 1 week PAIN SCORE: Non-responsive. LOCATION: Bilateral chest FINDINGS: Portable AP view of the chest demonstrates a normal-sized cardiac silhouette. ETT and NG tube remain present. Multiple lines overlie the patient. Lungs are underinflated and there are stable bibasilar o pacities. No pleural effusion or pneumothorax is visualized. CONCLUSION: Stable chest x-ray under inflation and bibasilar airspace opacities representing either atelectasis o r consolidation. Jann Strauss MD on June 14, 2016 at 6:54 Board Certified Radiologist. This report was verified electronically.
[2016-06-14] MEDS: LACTULOSE SYRUP 20 GM/30 ML CUP PO SCH ×2 (08:24→21:00)
[2016-06-14] MEDS: VANCOMYCIN INJ 1,250 MG in SODIUM CHLOR 0.9% 250 ML INJ 250 ML IV SCH (08:24)
[2016-06-14] MEDS: SPIRONOLACTONE 50 MG TAB PO SCH ×2 (08:24→18:00)
[2016-06-14] MEDS: PHYTONADIONE 5 MG TAB PO SCH (08:24)
[2016-06-14] MEDS: THIAMINE HCL 100 MG TAB PO SCH (08:24)
[2016-06-14] MEDS: SODIUM CHLORIDE 0.9% FLUSH 5 ML FLUSH FLUSH SCH ×2 (08:24→21:00)
[2016-06-14] MEDS: FUROSEMIDE 40 MG/4 ML VIAL IV PUSH SCH ×2 (08:24→18:01)
[2016-06-14] MEDS: DOCUSATE SODIUM 100 MG CAP PO SCH (08:25)
[2016-06-14] MEDS: RIFAXIMIN 550 MG TAB PO SCH ×2 (08:25→21:00)
[2016-06-14] MEDS: ICU - POTASSIUM CHLORIDE/AQUEOUS SOLN 20 MEQ/100 ML IVPB IV PRN ×3 (08:27→14:40)
[2016-06-14] MEDS: FOLIC ACID 1 MG TAB PO SCH (08:49)
[2016-06-14] MEDS: RESP: ALBUTEROL 2.5 MG/IPRATROPIUM 0.5 MG NEB (SCH) NEB ×3 (09:02→23:18)
[2016-06-14 09:23] LABS: REVIEW FLAG FINAL
[2016-06-14 10:07] LABS: BLOOD GAS BASE EXCESS -1.6 mmol/L (-2-2); BLOOD GAS CARBOXYHEMOGLOBIN 1.7 % (0-4); BLOOD GAS HCO3 22 mmol/L (22-26); BLOOD GAS METHEMOGLOBIN 0.6 % (0-2); BLOOD GAS O2 HGB SATURATION 96 % (90-100); BLOOD GAS OXYGEN CONTENT 12.2 Vol % (12.0-20.0); BLOOD GAS PCO2 32 mmHg (38-42); BLOOD GAS PO2 105 mmHg (61-120); BLOOD GAS TOTAL HGB 8.9 G/DL (12.0-16.0); CRITICAL VALUE NO; DRAW SITE RT RADIAL; FIO2 30 %; NUMBER OF ARTERIAL PUNCTURES 2; OXYGEN DEVICE VENTILATOR; STAT NO; TEMP CORR TO 98.6; ULNAR PULSE PRESENT; VENT SETTINGS CPAP 5/ +5/ 30%
[2016-06-14] MEDS: PANTOPRAZOLE SODIUM 40 MG VIAL IV PUSH SCH (10:48)
--- NOTE | 2016-06-14 11:48 | HHI.CCPN ---
Subjective Remarks/Hospital Course Mr. Valladares is a male with a past medical history of anxiety, depression, GERD, pleurisy, alcohol abuse, and hepatitis C who presented to the emergency room on 06/02/16 for evaluation of altered mental status and fall. Head CT showed questionable small intraparenchymal hematoma involving the right middle cerebellar peduncle. Large right parietal soft tissue hematoma. No intervention was recommended at that time. June 11, 2016 around 6:00 pm patient was transferred to ICU due to respiratory distress and altered mental status. His respirations became worse requiring intubation. Critical care medicine was consulted for management of ventilator. Subjective 2/3-Sedation it was noted the patient had copious amount of gastric (bilious, greenish )secretions in his lungs obvious aspiration. Empiric antibiotics were initiated last evening. Sputum culture resulted preliminary yeast with pseudohyphae. Antifungal will be initiated. PF ratio greater than 400, will decrease FiO2. /- Afebrile .The patient has been maintain on CPAP trials greater than 12 hours , sputum culture resulted gram-negative rods patient currently on empiric antibiotics.Palliative care was consulted and the patient was made DNR status, tentatively the patient family is planning for transfer to hospice care center on Wednesday. 06/14-The patient remained on CPAP trials overnight, alert and responsive requesting endotracheal tube be removed. Family brother/mother in this a.m., interacting with patient, requesting endotracheal tube removal. SBT trials obtained. Plan for extubation this a.m.. Objective Vital Signs Date Time Temp Pulse Resp B/P Pulse Ox O2 Delivery O2 Flow Rate FiO2 06/14/16 11:20 40 Venturi Mask 6 06/14/16 09:03 30 06/14/16 08:00 97.6 62 14 97/58 Intake and Output 06/13/16 06/13/16 06/14/16 08:00 16:00 00:00 Intake Total 493 ml 1210 ml 253 ml Output Total 600 ml 350 ml 2100 ml Balance -107 ml 860 ml -1847 ml Result Diagram: 06/14/16 0423 06/14/16 0423 Other Results Microbiology Date/Time Procedure Status Source Growth 06/12/16 00:00 Gram Stain - Final Complete Sputum Endotracheal 06/12/16 00:00 Sputum Culture - Final Complete Klebsiella Pneumoniae 06/12/16 03:00 Legionella Antigen - Final Complete Urine Catheterized Urine PRESUMPTIVE NEGATIVE FOR LEGIONELLA P... 06/12/16 03:00 Streptococcus pneumoniae Antigen (M - Final Complete Urine Catheterized Urine PRESUMPTIVE NEGATIVE FOR STREPTOCOCCU... Laboratory Tests Test 06/14/16 06/14/16 05:10 09:52 Blood Gas Puncture Site LT RADIAL RT RADIAL Blood Gas Patient Temperature 98.6 98.6 Blood Gas HCO3 21 mmol/L 22 mmol/L (22-26) (22-26) Blood Gas Base Excess -2.6 mmol/L -1.6 mmol/L (-2-2) (-2-2) Blood Gas Oxygen Saturation 95 % (90-100) 96 % (90-100) Arterial Blood pH 7.44 7.45 (7.380-7.420) (7.380-7.420) Arterial Blood Partial 32 mmHg (38-42) 32 mmHg (38-42) Pressure CO2 Arterial Blood Partial 92 mmHg 105 mmHg Pressure O2 (61-120) (61-120) Arterial Blood Oxygen Content 11.7 Vol % 12.2 Vol % (12.0-20.0) (12.0-20.0) Arterial Blood 1.8 % (0-4) 1.7 % (0-4) Carboxyhemoglobin Arterial Blood Methemoglobin 0.8 % (0-2) 0.6 % (0-2) Blood Gas Hemoglobin 8.7 G/DL 8.9 G/DL (12.0-16.0) (12.0-16.0) Oxygen Delivery Device VENTILATOR VENTILATOR Blood Gas Ventilator Setting [id number] CPAP 5/ +5/ 30% Blood Gas Inspired Oxygen 30 % 30 % Imaging Last Impressions Chest X-Ray 06/14/16 0600 Signed Impressions: Service Date/Time: Tuesday, June 14, 2016 06:16 - CONCLUSION: Stable chest x-ray under inflation and bibasilar airspace opacities representing either atelectasis or consolidation. Jann Strauss MD Abdomen X-Ray 06/12/16 0000 Signed Impressions: Service Date/Time: Sunday, June 12, 2016 00:00 - CONCLUSION: Nasogastric tube tip in the stomach. Ralph Sneed MD Cyst Biopsy Asp-Paracentesis US 06/10/16 0000 Signed Impressions: Service Date/Time: Friday, June 10, 2016 10:49 - CONCLUSION: Uncomplicated ultrasound guided paracentesis. Patient received albumin per protocol. Tyson Farias MD FACR Abdomen Ultrasound 06/06/16 0000 Signed Impressions: Service Date/Time: Monday, June 06, 2016 09:06 - CONCLUSION: 1. There is a sludge in the gallbladder. There is some thickening of the gallbladder wall at 6 mm. This is suggestive of chronic gallbladder disease. No biliary tract obstruction is demonstrated. 2. Heterogeneous lobular liver characteristic for cirrhosis. 3. Moderate ascites. 4. Splenomegaly. Kervin Garza MD Brain MRI 06/04/16 0000 Signed Impressions: Service Date/Time: May 13:22 - CONCLUSION: Small focal hemorrhage identified in the region of the right cerebellum. Linear areas of increased T2 signal identified within the right and left cerebellar peduncle and within the left temporal lobe without corresponding hemorrhage or restricted diffusion. These may represent sequelae of trauma. Brunilda Polanco MD Head CT 06/03/16 0600 Signed Impressions: Service Date/Time: Friday, June 03, 2016 08:05 - CONCLUSION: Abnormal CT scan. MRI may be of benefit to confirm hemorrhage. Tyson Farias MD FACR Cervical Spine CT 06/02/16 0000 Signed Impressions: Service Date/Time: Thursday, June 02, 2016 19:04 - CONCLUSION: 1. No fracture or dislocation. 2. Degenerative changes. 3. Calcified atherosclerotic plaque involving the carotid arteries bilaterally. Haider Reinoso Jr., MD Last Impressions Chest X-Ray 06/11/16 0000 Signed Impressions: Service Date/Time: June 19:14 - CONCLUSION: No evidence of acute cardiopulmonary disease. Jann Jane MD Cyst Biopsy Asp-Paracentesis US 06/10/16 0000 Signed Impressions: Service Date/Time: Friday, June 10, 2016 10:49 - CONCLUSION: Uncomplicated ultrasound guided paracentesis. Patient received albumin per protocol. Tysno Farias MD FACR Abdomen Ultrasound 06/06/16 0000 Signed Impressions: Service Date/Time: Monday, June 06, 2016 09:06 - CONCLUSION: 1. There is a sludge in the gallbladder. There is some thickening of the gallbladder wall at 6 mm. This is suggestive of chronic gallbladder disease. No biliary tract obstruction is demonstrated. 2. Heterogeneous lobular liver characteristic for cirrhosis. 3. Moderate ascites. 4. Splenomegaly. Kervin Garza MD Brain MRI 06/04/16 0000 Signed Impressions: Service Date/Time: May 13:22 - CONCLUSION: Small focal hemorrhage identified in the region of the right cerebellum. Linear areas of increased T2 signal identified within the right and left cerebellar peduncle and within the left temporal lobe without corresponding hemorrhage or restricted diffusion. These may represent sequelae of trauma. Brunilda Polanco MD Head CT 06/03/16 0600 Signed Impressions: Service Date/Time: Friday, June 03, 2016 08:05 - CONCLUSION: Abnormal CT scan. MRI may be of benefit to confirm hemorrhage. Tyson Farias MD FACR Cervical Spine CT 06/02/16 0000 Signed Impressions: Service Date/Time: Thursday, June 02, 2016 19:04 - CONCLUSION: 1. No fracture or dislocation. 2. Degenerative changes. 3. Calcified atherosclerotic plaque involving the carotid arteries bilaterally. Haider Reinoso Jr., MD Last 24 hours Impressions Chest X-Ray 06/11/16 0000 Signed Impressions: Service Date/Time: June 19:14 - CONCLUSION: No evidence of acute cardiopulmonary disease. Jann Jane MD Objective Remarks GENERAL: Critically ill-appearing male sedated and intubated patient, responding to yes and no questions. SKIN: Warm and dry. HEAD: Normocephalic. EYES: No scleral icterus. No injection or drainage. NECK: Supple, trachea midline. No JVD or lymphadenopathy. Orotracheally intubated CARDIOVASCULAR: Regular rate and rhythm without murmurs,S1,S2 no gallops, or rubs. RESPIRATORY: Breath sounds equal bilaterally. Coarse breath sounds throughout lung hubbard. Mechanical ventilation GASTROINTESTINAL: Abdomen soft, protuberant with noted ascites MUSCULOSKELETAL: No cyanosis, or edema. NEURO: GCS 11 T on sedation vacation, following commands movement of extremities 4. Urinary Catheter: Yes Danielle insert reason: ICU Pt Getting Diuretics Vascular Central Line Catheter: No A/P Problem List: (1) Ascites ICD Code: R18.8 Status: Acute (2) Cerebral contusion ICD Code: S06.339A Status: Acute (3) Encephalopathy chronic ICD Code: G93.49 Status: Acute (4) Cirrhosis ICD Code: K74.60 Status: Chronic Assessment and Plan Plan by systems: Neurologic: Hepatic encephalopathy Hyperammonemia EtOH use disorder ICH -ICH cleared by neurosurgery, MRI most likely cerebral peduncle contusion -Continue rifaximin and lactulose -Continue thiamine and folate -Neurochecks per ICU protocol -GCS 11 T -Continue thiamine and folate Respiratory: Acute hypoxic/hypercapnic respiratory failure Aspiration pneumonia -Maintain O2 sat greater than 92%, wean FiO2 less than 50% -Patient maintained on CPAP greater than 24-hour -SBT trial-RSBI 35, RR16, FVC 1.2, NIF -31 -ABG 7.44/32/105/21/-1.6 -Plan to extubate-per family and patient's request -Empiric antibiotics Zosyn and vancomycin(day 4) -Sputum culture 2/2 gram-Klebsiella pneumonia Cardiovascular: -Normotensive SBP 90-100mmHg, continue Albumin -Maintain MAP greater than 65mmHg Renal: -No acute issues -Lasix, spironolactone secondary to ESLD -Maintain Danielle catheter, monitor hourly urine output -- Strict I/Os FEN/GI: End-stage liver disease Liver Cirrhosis Ascites Severe protein calorie malnutrition -Meld score 13 -GI signed off, paracentesis 06/03- 13 liters, 06/10-11 L, no scheduled paracentesis recommended per GI -Will resume Rocephin for SBT prophylaxis -Nutrition consult-tube feed recommendations - Begin tube feeds-Jevity 1.5 -Continue albumin twice a day, Lasix ,spironolactone -Supportive care-Palliative medicine on board, plan for possible transfer to Hospice care center on Wednesday Heme/ID: Anemia Thrombocytopenia Leukocytosis Hepatitis Coagulopathy -WBC 23, continue to monitor -Monitor CBC, coags, INR 1.5, platelet 70 today, continue to monitor -Continue vitamin K -Transfuse for hemoglobin less than 7, platelet count less than 50,000 -Vancomycin and Zosyn initiated empiric antibiotics -Sputum culture 2/2 -yeast with pseudohyphae. Diflucan (day 3) -Blood cultures, urine cultures- F/U results -strep pneumo, legionella antigen-pending -Rocephin-SBT prophylaxis Endocrine: -Monitor blood glucose per ICU protocol -Sliding-scale insulin low -- SSI Prophylaxis: GI Prophylaxis Protonix DVT Prophylaxis -- SCDs No pharmacological DVT prophylaxis at this time Lines: Peripheral IVs 2. Dispo: Discussed with ENTRY LEVEL SALES CONSULTANT at bedside. Spoke with family at bedside with patient's mother, and brother. Plan for extubation this morning, at the request of the family. Extensive discussion provided regarding no reintubation, status DNR. The family stated an understanding and requests to proceed with extubation. This patient remains critically ill with one or more organ systems which are or may become a threat to life. I have spent in excess of 31 minutes discontinuously in the care and management of this patient. This time is exclusive of procedures, and includes, but is not limited to, evaluation of the patient, review of the medical record, discussions with family, consultants, nursing staff, or respiratory therapy, and documentation in the medical record. Physician Suma Hernandez Problem Qualifiers (1) Ascites: Qualified Code: R18.8 - Other ascites (2) Cerebral contusion: Qualified Code: S06.319A - Cerebral contusion, right, with loss of consciousness of unspecified duration, initial encounter (3) Cirrhosis: Qualified Code: K74.60 - Cirrhosis of liver with ascites, unspecified hepatic cirrhosis type Suma Hernandez MD Jun 14, 2016 11:48
[2016-06-14] MEDS: cefTRIAXone INJ 1,000 MG in SODIUM CHLORIDE 0.9% INJ 100 ML IV SCH (12:12)
[2016-06-14] MEDS: FLUCONAZOLE 200 MG PREMIX BAG 100 ML IV SCH (12:12)
[2016-06-15] VITALS: BP 94/56; PULSE 88; RESP 25; TEMP 98
[2016-06-15] MEDS: PIPERACIL-TAZO 3.375 GM PREMIX 50 ML IV SCH ×3 (00:26→12:00)
[2016-06-15] MEDS: ALBUMIN HUMAN 5% 25 GM/500 ML BOTTLE IV SCH (00:27)
[2016-06-15] MEDS: VANCOMYCIN INJ 1,250 MG in SODIUM CHLOR 0.9% 250 ML INJ 250 ML IV SCH (03:55)
[2016-06-15 04:00] VITALS: BP 86/50; PULSE 68; RESP 23; TEMP 98; O2SAT 100
[2016-06-15 08:00] VITALS: BP 105/73; PULSE 71; RESP 22; TEMP 98.2
[2016-06-15] MEDS: RESP: ALBUTEROL 2.5 MG/IPRATROPIUM 0.5 MG NEB (SCH) NEB (08:45)
[2016-06-15 08:47] VITALS: O2SAT 95
[2016-06-15] MEDS: PHYTONADIONE 5 MG TAB PO SCH (09:00)
[2016-06-15] MEDS: DOCUSATE SODIUM 100 MG CAP PO SCH (09:00)
[2016-06-15] MEDS: SPIRONOLACTONE 50 MG TAB PO SCH (09:00)
[2016-06-15] MEDS: FUROSEMIDE 40 MG/4 ML VIAL IV PUSH SCH (09:00)
[2016-06-15] MEDS: LACTULOSE SYRUP 20 GM/30 ML CUP PO SCH (09:00)
[2016-06-15] MEDS: THIAMINE HCL 100 MG TAB PO SCH (09:00)
[2016-06-15] MEDS: SODIUM CHLORIDE 0.9% FLUSH 5 ML FLUSH FLUSH SCH (09:00)
[2016-06-15] MEDS: RIFAXIMIN 550 MG TAB PO SCH (09:00)
[2016-06-15] MEDS: FOLIC ACID 1 MG TAB PO SCH (09:00)
--- NOTE | 2016-06-15 10:35 | HHI.DS ---
Discharge Summary Admission Date Jun 02, 2016 at 20:14 Admitting Diagnosis Intracranial hemorrhage, altered mental status, anemia, coagulopathy, cirrhosis . (1) Intracranial hemorrhage ICD Code: I62.9 (2) Anemia ICD Code: D64.9 (3) Coagulopathy ICD Code: D68.9 (4) Cirrhosis ICD Code: K74.60 (5) Hyperammonemia ICD Code: E72.20 (6) Hepatic encephalopathy ICD Code: K72.90 (7) Hypokalemia ICD Code: E87.6 Brief History Mr. Valladares is a male with a past medical history of anxiety, depression, GERD, pleurisy, alcohol abuse, and hepatitis C who presented to the emergency room on 06/02/16 for evaluation of altered mental status and fall. Head CT showed questionable small intraparenchymal hematoma involving the right middle cerebellar peduncle. Large right parietal soft tissue hematoma. Cervical spine CT showed degenerative changes and bilateral calcified atherosclerotic plaque of the carotid arteries but no acute fractures or dislocations. Neurosurgery was consulted and recommended admission. The patient is seen in the emergency room. He is obtunded and reliable history is unable to be obtained from him and therefore is obtained from medical record review and emergency room physician notes. CBC/BMP: 06/14/16 0423 06/14/16 0423 Significant Findings Laboratory Tests Test 06/13/16 06/13/16 06/14/16 06/14/16 05:11 12:30 04:23 05:10 Red Blood Count 3.29 MIL/MM3 3.24 MIL/MM3 (4.50-5.90) (4.50-5.90) Hemoglobin 9.0 GM/DL 8.5 GM/DL (13.0-17.0) (13.0-17.0) Hematocrit 26.1 % 26.3 % (39.0-51.0) (39.0-51.0) Mean Corpuscular Volume 79.4 FL (80.0-100.0) Red Cell Distribution Width 23.2 % 24.0 % (11.6-17.2) (11.6-17.2) Platelet Count 71 TH/MM3 54 TH/MM3 (150-450) (150-450) Mean Platelet Volume 11.2 FL (7.0-11.0) Neutrophils (%) (Auto) 75.5 % (16.0-70.0) Monocytes (%) (Auto) 10.2 % (0.0-8.0) Monocytes # (Auto) 1.0 TH/MM3 (0-0.9) Platelet Estimate LOW (NORMAL) Prothrombin Time 16.4 SEC (9.8-11.6) Sodium Level 150 MEQ/L 151 MEQ/L (136-145) (136-145) Potassium Level 3.1 MEQ/L 3.1 MEQ/L (3.5-5.1) (3.5-5.1) Chloride Level 117 MEQ/L 116 MEQ/L (98-107) (98-107) Blood Urea Nitrogen 24 MG/DL (7-18) 23 MG/DL (7-18) Estimat Glomerular Filtration 72 ML/MIN (>89) Rate Total Bilirubin 1.8 MG/DL (0.2-1.0) Alanine Aminotransferase 10 U/L (12-78) (ALT/SGPT) Total Protein 6.3 GM/DL (6.4-8.2) Albumin 3.2 GM/DL (3.4-5.0) Vancomycin Level Trough 20.0 MCG/ML (5.0-10.0) Mean Corpuscular Hemoglobin 26.2 PG (27.0-34.0) Blood Gas HCO3 21 mmol/L (22-26) Blood Gas Base Excess -2.6 mmol/L (-2-2) Arterial Blood pH 7.44 (7.380-7.420) Arterial Blood Partial 32 mmHg (38-42) Pressure CO2 Arterial Blood Oxygen Content 11.7 Vol % (12.0-20.0) Blood Gas Hemoglobin 8.7 G/DL (12.0-16.0) Test 06/14/16 09:52 Arterial Blood pH 7.45 (7.380-7.420) Arterial Blood Partial 32 mmHg (38-42) Pressure CO2 Blood Gas Hemoglobin 8.9 G/DL (12.0-16.0) PE at Discharge General: Chronically ill-appearing male in no acute distress. Confused, restraints in place. Heart: Regular rate and rhythm. No murmur. Lungs: Coarse crackles bilaterally. Abdomen: Soft, Protuberant, nontender, noted acites. Extremities: 1+ edema. Neuro exam: GCS14. Confusion, moving extremities x 4. Hospital Course Mr. Valladares is a male with a past medical history of anxiety, depression, GERD, pleurisy, alcohol abuse, and hepatitis C who presented to the emergency room on 06/02/16 for evaluation of altered mental status and fall. Head CT showed questionable small intraparenchymal hematoma involving the right middle cerebellar peduncle. Large right parietal soft tissue hematoma. No intervention was recommended at that time. June 11, 2016 around 6:00 pm patient was transferred to ICU due to respiratory distress and altered mental status. His respirations became worse requiring intubation. Critical care medicine was consulted for management of ventilator. Subjective 2/3-Sedation it was noted the patient had copious amount of gastric (bilious, greenish )secretions in his lungs obvious aspiration. Empiric antibiotics were initiated last evening. Sputum culture resulted preliminary yeast with pseudohyphae. Antifungal will be initiated. PF ratio greater than 400, will decrease FiO2. 2/4- Afebrile .The patient has been maintain on CPAP trials greater than 12 hours , sputum culture resulted gram-negative rods patient currently on empiric antibiotics.Palliative care was consulted and the patient was made DNR status, tentatively the patient family is planning for transfer to hospice care center on Wednesday. 06/14-The patient remained on CPAP trials overnight, alert and responsive requesting endotracheal tube be removed. Family brother/mother in this a.m., interacting with patient, requesting endotracheal tube removal. SBT trials obtained. Plan for extubation this a.m.. 2/ The patient is awake and talking inappropriately., confused. Removed 1 IV this am.O2 sat 92-94%. Plan for transfer to Hospice this am. Pt Condition on Discharge: Deteriorating Discharge Disposition: Hospice/Med Facility Discharge Instructions DIET: Follow Instructions for: As Tolerated, No Restrictions Activities you can perform: Weight Bearing as Sumeet Activities to Avoid: Driving for 24 hrs, Concussion Sports, Contact Sports, Lifting/Bending, Prolonged Standing, Strenuous Activity, Shaving, Driving Suma Hernandez MD Jun 15, 2016 10:14
[2016-06-15] MEDS: PANTOPRAZOLE SODIUM 40 MG VIAL IV PUSH SCH (11:00)
[2016-06-15 12:00] VITALS: BP 105/62; PULSE 84; RESP 18; TEMP 98.2; O2SAT 95
[2016-06-15] MEDS: cefTRIAXone INJ 1,000 MG in SODIUM CHLORIDE 0.9% INJ 100 ML IV SCH (12:00)
[2016-06-15] MEDS: FLUCONAZOLE 200 MG PREMIX BAG 100 ML IV SCH (12:00)
[2016-06-16 09:07] LABS: CRITICAL VALUE YES
[2016-06-16] MEDS ORDERED: PHARMACY ORDERED LAB XX ONE (13:45)
== END 2016-06-15 14:33 | disposition hospice, inpatient (51) | DRG 85 ==
LOC: NEPA 16:42 → NEDA 20:14 → NEDH 06-03 01:18 → HCIS 06-03 08:15 → N06B 06-09 15:04 → UNDODISIN 06-10 12:23 → N06A 06-11 13:35 → N03A 06-11 18:43
PROVIDERS: ADMIT Family Medicine; ATTEND Internal Medicine Critical Care Medicine
PROC: 30253K1 (ICD-10-PCS; 2016-06-02)
PROC: 0W9G3ZZ Drainage of Peritoneal Cavity, Percutaneous Approach (ICD-10-PCS; principal; 2016-06-03)
PROC: 30253N1 (ICD-10-PCS; 2016-06-03)
PROC: 0W9G3ZZ Drainage of Peritoneal Cavity, Percutaneous Approach (ICD-10-PCS; 2016-06-10)
PROC: 5A1945Z Respiratory Ventilation, 24-96 Consecutive Hours (ICD-10-PCS; 2016-06-11)
PROC: 0BH17EZ Insertion of Endotracheal Airway into Trachea, Via Natural or Artificial Opening (ICD-10-PCS; 2016-06-11)
DX: S06.370A Contusion, laceration, and hemorrhage of cerebellum without loss of consciousness, initial encounter (principal); J96.01 Acute respiratory failure with hypoxia; J69.0 Pneumonitis due to inhalation of food and vomit; R34 Anuria and oliguria; K70.31 Alcoholic cirrhosis of liver with ascites; E43 Unspecified severe protein-calorie malnutrition; J96.02 Acute respiratory failure with hypercapnia; D68.9 Coagulation defect, unspecified; D69.6 Thrombocytopenia, unspecified; K72.90 Hepatic failure, unspecified without coma; D64.9 Anemia, unspecified; S00.03XA Contusion of scalp, initial encounter; E87.6 Hypokalemia; F17.210 Nicotine dependence, cigarettes, uncomplicated; K21.9 Gastro-esophageal reflux disease without esophagitis; Z68.25 Body mass index [BMI] 25.0-25.9, adult; Z51.5 Encounter for palliative care; Z66 Do not resuscitate; B96.1 Klebsiella pneumoniae [K. pneumoniae] as the cause of diseases classified elsewhere; F10.21 Alcohol dependence, in remission; W19.XXXA Unspecified fall, initial encounter; Y92.096 Garden or yard of other non-institutional residence as the place of occurrence of the external cause
CPT/HCPCS: 31500; 36430; 36600; 49083; 51702; 70450; 70551; 71010; 72125; 74000; 76700; 76937; 80048; 80053; 80202; 80320; 81001; 82105; 82140; 82550; 82607; 82746; 82805; 83540; 83550; 83605; 83735; 83880; 84100; 84425; 85014; 85018; 85025; 85027; 85610; 85730; 86140; 86317; 86403; 86692; 86704; 86707; 86850; 86900; 86901; 86920; 86927; 87040; 87070; 87077; 87086; 87186; 87205; 87340; 87350; 87449; 87517; 87522; 89051; 93005; 94002; 94003; 94150; 94640; 94664; 95819; C1729; C9113; J0330; J0692; J0696; J1450; J1630; J1940; J2250; J2543; J3370; J3411; J3430; J3475; J3480; J7030; J7050; P9016; P9017; P9045; P9047